=== PATIENT | female | born 1930 | race Two or more races ===

== ENCOUNTER 2020-02-07 12:30 | Inpatient (IN) | payer OTHER, MEDICAID ==
[~2020-02-07] VITALS: Ht 165.1 cm; Wt 67.6 kg
[2020-02-07] VITALS (7 sets, daily range): BP systolic 126–160; BP diastolic 43–73
[2020-02-07] MEDS ORDERED: Acetaminophen 650 MG SUPP RECTAL ONE ×2 (12:50→13:00)
[2020-02-07 13:27] LABS: BASOPHILS % (AUTO) 0.2 % (0.0-2.0); HEMATOCRIT 45.4 % (37.0-47.0); HEMOGLOBIN 14.5 G/DL (12.0-16.0); LYMPHOCYTES % (AUTO) 12.5 % (20.0-45.0); MEAN CORPUSCULAR VOLUME 94 FL (80-99); MONOCYTES % (AUTO) 4.8 % (1.0-10.0); NEUTROPHILS % (AUTO) 82.5 % (45.0-75.0); PLATELET COUNT 164 K/UL (150-450); RED BLOOD COUNT 4.82 M/UL (4.20-5.40); RED CELL DISTRIBUTION WIDTH 13.5 % (11.6-14.8); WHITE BLOOD COUNT 7.7 K/UL (4.8-10.8)
[2020-02-07 13:38] LABS: APPEARANCE,URINE CLEAR; BILIRUBIN, URINE NEGATIVE (NEGATIVE); GLUCOSE, URINE (UA) NEGATIVE (NEGATIVE); KETONES,URINE NEGATIVE (NEGATIVE); LEUKOCYTE ESTERASE ,URINE NEGATIVE (NEGATIVE); NITRITE,URINE NEGATIVE (NEGATIVE); PH,URINE 5 (4.5-8.0); PROTEIN,URINE 3+ (NEGATIVE); UROBILINOGEN,URINE 1 MG/DL (0.0-1.0)
[2020-02-07 13:40] LABS: COLOR,URINE YELLOW
[2020-02-07] MEDS ORDERED: Azithromycin 500 MG in NS 275 ML IV ONE (14:00)
[2020-02-07] MEDS ORDERED: Cefepime HCl 1 GM in D5W 55 ML IVPB ONE (14:00)
[2020-02-07 14:03] LABS: CALCIUM 8.6 MG/DL (8.5-10.1); POTASSIUM 3.8 MMOL/L (3.5-5.1)
[2020-02-07 14:09] LABS: ALBUMIN 2.3 G/DL (3.4-5.0); ALBUMIN/GLOBULIN RATIO 0.5 (1.0-2.7); BILIRUBIN,TOTAL 0.9 MG/DL (0.2-1.0)
[2020-02-07] MEDS ORDERED: dexAMETHasone 10mg/ml Inj IV ONE (14:45)
[2020-02-07] MEDS ORDERED: Enoxaparin 100mg Inj SUBQ ONE (14:45)
[2020-02-07] MEDS ORDERED: ACETAMINOPHEN325 M1 ORAL (14:52)
[2020-02-07] MEDS ORDERED: CATAPRES0.1 MG ORAL (14:52)
[2020-02-07] MEDS ORDERED: NAMENDA5 MG ORAL (14:52)
[2020-02-07] MEDS ORDERED: LEVOTHYROXINE75 MCG ORAL (14:52)
[2020-02-07] MEDS ORDERED: ATORVASTATIN CA80 MG ORAL (14:52)
[2020-02-07] MEDS ORDERED: METOPROLOL SUCC25 MG ORAL (14:52)
[2020-02-07] MEDS ORDERED: CEFTRIAXONE1 G2 IV (14:52)
--- NOTE | 2020-02-07 15:05 | Emergency Room Report ---
History of Present Illness General Chief Complaint: Dyspnea/Respdistress Source: Patient, EMS Present Illness HPI 89-year-old female presents for increased shortness of breath. Coming from senior care facility. Was placed on nonrebreather with O2 sats improved. Was recently diagnosed with Covid. No shortness of breath. Denies chest pain. Denies fevers or chills. No other aggravating relieving factors. Denies any other associated symptoms Allergies: Coded Allergies: No Known Allergies (Unverified , 02/07/20) COVID-19 Screening Contact w/high risk pt: Yes Experienced COVID-19 symptoms?: Yes COVID-19 Testing performed LABORER/GRADE CHECK: Yes COVID-19 Screening: Positive COVID-19 COVID-19 Testing Source: SNF Patient History Past Medical History: none Past Surgical History: none Pertinent Family History: none Social History: Denies: smoking, alcohol use, drug use Now: No Immunizations: UTD Reviewed Nursing Documentation: PMH: Agreed; PSxH: Agreed Review of Systems All Other Systems: negative except mentioned in HPI Physical Exam Vital Signs Date Time Temp Pulse Resp B/P (MAP) Pulse Ox O2 Delivery O2 Flow Rate FiO2 02/07/20 12:21 99.0 84 20 145/71 (95) 97 Non-Rebreather 15.0 Sp02 EP Interpretation: reviewed, normal General Appearance: no apparent distress, alert, GCS 15, non-toxic Head: normocephalic, atraumatic Eyes: bilateral eye normal inspection, bilateral eye PERRL ENT: hearing grossly normal, normal pharynx, no angioedema, normal voice Neck: full range of motion, supple/symm/no masses Respiratory: chest non-tender, normal breath sounds, crackles, speaking full sentences Cardiovascular #1: regular rate, rhythm, no edema Cardiovascular #2: 2+ carotid (R), 2+ carotid (L), 2+ radial (R), 2+ radial (L), 2+ dorsalis pedis (R), 2+ dorsalis pedis (L) Gastrointestinal: normal bowel sounds, non tender, soft, non-distended, no guarding, no rebound Rectal: deferred Genitourinary: normal inspection, no CVA tenderness Musculoskeletal: back normal, normal range of motion, gait/station normal, non- tender Neurologic: alert, motor strength/tone normal, oriented x3, sensory intact, responsive, speech normal Psychiatric: judgement/insight normal, memory normal, mood/affect normal, no suicidal/homicidal ideation Reflexes: 3+ bicep (R), 3+ bicep (L), 3+ tricep (R), 3+ tricep (L), 3+ knee (R), 3+ knee (L) Skin: other - See nursing notes Lymphatic: no adenopathy Procedures Critical Care Time Critical Care Time i. I feel this is a highly complex case requiring extensive working including EKG/Rhythm strip, Xray/CT/US, Blood/urine lab work, repeat exams while in ED, and administration of strong opiates/narcotics for pain control, admission to hospital or close patient follow up. Total time: 60 min bedside evaluation and treatment excludes procedures (EKG). Reason for critical care: Respiratory distress, hypoxia COVID-19 Possible complications: hypotension, hypertension, AL, shock, arrhythmias, metabolic acidosis, end organ damage, respiratory failure. Interventions: Labs, EKG, chest x-ray, broad-spectrum antibiotics, Lovenox, dexamethasone Course: Presenting with shortness of breath. O2 sats low. Recently diagnosed with Covid. Placed on nonrebreather with O2 sats improved. Inflammatory markers elevated. D-dimer elevated. Chest x-ray shows bilateral patchy infiltrates. Given broad-spectrum antibiotics. Given dexamethasone and Lovenox. Consultations: nursing staff, EMS, family Performed by: Dr Owen Tolerated well condition = serious j. because of unstable vital signs this patient had a condition that could potentially threaten life or limb. I feel this is a critical patient who required my full attention while patient was considered critical. Total Critical Care Time excluding procedures was greater than 60 minutes Medical Decision Making Diagnostic Impression: Primary Impression: COVID-19 Additional Impression: Respiratory distress ER Course Hospital Course 89-year-old female presents with shortness of breath, hypoxia. Recently diagnosed with Covid Differential diagnoses include: Pneumonia, CHF exacerbation, pneumothorax, fluid overload Clinical course Patient placed on stretcher. Isolation. I wore full PPE. After initial his tory and physical I ordered labs, EKG, chest x-ray Labs -no leukocytosis, hemoglobin/hematocrit stable, BUN elevated, inflammatory markers elevated, troponin negative, dimer elevated EKGnormal sinus rhythm no acute ischemic changes interpreted by me CXR -patchy bilaterally opacities 02 sats improved on nonrebreather. No tachypnea. Given Lovenox. Given dexamethasone. Given broad-spectrum antibiotics Case discussed with Dr. Cramer and he agreed to the patient to his service for further care and support I feel this is a highly complex case requiring extensive working including EKG/Rhythm strip, Xray/CT/US, Blood/urine lab work, repeat exams while in ED, and administration of strong opiates/narcotics for pain control, admission to hospital or close patient follow up. Diagnosis - COVID19, respiraory distress Patient admitted to telemetry in serious condition Laboratory Tests Test 02/07/20 12:40 White Blood Count 7.7 K/UL (4.8-10.8) Red Blood Count 4.82 M/UL (4.20-5.40) Hemoglobin 14.5 G/DL (12.0-16.0) Hematocrit 45.4 % (37.0-47.0) Mean Corpuscular Volume 94 FL (80-99) Mean Corpuscular Hemoglobin 30.0 PG (27.0-31.0) Mean Corpuscular Hemoglobin Concent 31.9 G/DL (32.0-36.0) L Red Cell Distribution Width 13.5 % (11.6-14.8) Platelet Count 164 K/UL (150-450) Mean Platelet Volume 7.8 FL (6.5-10.1) Neutrophils (%) (Auto) 82.5 % (45.0-75.0) H Lymphocytes (%) (Auto) 12.5 % (20.0-45.0) L Monocytes (%) (Auto) 4.8 % (1.0-10.0) Eosinophils (%) (Auto) 0.0 % (0.0-3.0) Basophils (%) (Auto) 0.2 % (0.0-2.0) Prothrombin Time 11.2 SEC (9.30-11.50) Prothromb Time International Ratio 1.0 (0.9-1.1) Activated Partial Thromboplast Time 54 SEC (23-33) H D-Dimer 10.97 mg/L FEU (0.00-0.49) H Urine Color Yellow Urine Appearance Clear Urine pH 5 (4.5-8.0) Urine Specific [place] 1.020 (1.005-1.035) Urine Protein 3+ (NEGATIVE) H Urine Glucose (UA) Negative (NEGATIVE) Urine Ketones Negative (NEGATIVE) Urine Blood 2+ (NEGATIVE) H Urine Nitrite Negative (NEGATIVE) Urine Bilirubin Negative (NEGATIVE) Urine Urobilinogen 1 MG/DL (0.0-1.0) H Urine Leukocyte Esterase Negative (NEGATIVE) Urine RBC 2-4 /HPF (0 - 2) H Urine WBC 0-2 /HPF (0 - 2) Urine Squamous Epithelial Cells Few /LPF (NONE/OCC) Urine Bacteria Few /HPF (NONE) Sodium Level 145 MMOL/L (136-145) Potassium Level 3.8 MMOL/L (3.5-5.1) Chloride Level 108 MMOL/L (98-107) H Carbon Dioxide Level 34 MMOL/L (21-32) H Anion Gap 3 mmol/L (5-15) L Blood Urea Nitrogen 20 mg/dL (7-18) H Creatinine 1.0 MG/DL (0.55-1.30) Estimat Glomerular Filtration Rate 52.5 mL/min (>60) Glucose Level 229 MG/DL (74-106) H Lactic Acid Level 1.80 mmol/L (0.4-2.0) Calcium Level 8.6 MG/DL (8.5-10.1) Ferritin 1084 NG/ML (8-388) H Total Bilirubin 0.9 MG/DL (0.2-1.0) Aspartate Amino Transf (AST/SGOT) 117 U/L (15-37) H Alanine Aminotransferase (ALT/SGPT) 87 U/L (12-78) H Alkaline Phosphatase 93 U/L (46-116) Lactate Dehydrogenase 384 U/L (81-234) H Troponin I 0.050 ng/mL (0.000-0.056) C-Reactive Protein, Quantitative 17.8 mg/dL (0.00-0.90) H Pro-B-Type Natriuretic Peptide 270 pg/mL (0-125) H Total Protein 7.1 G/DL (6.4-8.2) Albumin 2.3 G/DL (3.4-5.0) L Globulin 4.8 g/dL Albumin/Globulin Ratio 0.5 (1.0-2.7) L Lipase 220 U/L (73-393) EKG Diagnostic Results Troponin ordered: Yes Rate: normal Rhythm: NSR ST Segments: no acute changes ASA given to the pt in ED: No Rhythm Strip Diag. Results EP Interpretation: yes Rhythm: NSR, no PVC's, no ectopy Chest X-Ray Diagnostic Results Chest X-Ray Diagnostic Results : Chest X-Ray Ordered: Yes # of Views/Limited/Complete: 1 View Indication: Shortness of Breath EP Interpretation: Yes Interpretation: no effusion, no pneumothorax, other - patchy opacities bilaterally Impression: Other - covid pneumonia Electronically Signed by: Electronically signed by Earnest Owen MD Last Vital Signs Date Time Temp Pulse Resp B/P (MAP) Pulse Ox O2 Delivery O2 Flow Rate FiO2 02/07/20 14:13 77 25 160/54 98 Non-Rebreather 15.0 02/07/20 12:40 101.9 Status: improved Disposition: ADMITTED INPATIENT Condition: Serious Referrals: Annika Cramer M.D. (PCP) Earnest Owen MD Feb 07, 2020 15:05
--- NOTE | 2020-02-07 15:55 | Infectious Diseases Prog Note ---
Assessment/Plan Assessment/Plan Full consult dictated: A) 1) covid-19 infection, sob, hypoxia, NR, ? bacterial pna, [facility] patient 2) pmh noted 3) allergies - nkda P) 1) zosyn, vancomycin, dexamethasone, consider remdesivir 2) pmh noted 3) allergies - nkda 4) thank you Subjective Allergies: Coded Allergies: No Known Allergies (Unverified , 02/07/20) Objective Last 24 Hour Vital Signs Date Time Temp Pulse Resp B/P (MAP) Pulse Ox O2 Delivery O2 Flow Rate FiO2 02/07/20 15:47 99.1 02/07/20 14:13 77 25 160/54 98 Non-Rebreather 15.0 02/07/20 12:40 101.9 81 19 144/73 98 Non-Rebreather 15.0 02/07/20 12:30 84 20 Non-Rebreather 15.0 02/07/20 12:21 99.0 84 20 145/71 (95) 97 Non-Rebreather 15.0 Height (Feet): 5 Height (Inches): 5.00 Weight (Pounds): 150 Microbiology Date/Time Source Procedure Growth Status 02/07/20 12:45 Rectum Received Laboratory Tests Test 02/07/20 12:40 White Blood Count 7.7 K/UL (4.8-10.8) Red Blood Count 4.82 M/UL (4.20-5.40) Hemoglobin 14.5 G/DL (12.0-16.0) Hematocrit 45.4 % (37.0-47.0) Mean Corpuscular Volume 94 FL (80-99) Mean Corpuscular Hemoglobin 30.0 PG (27.0-31.0) Mean Corpuscular Hemoglobin Concent 31.9 G/DL (32.0-36.0) L Red Cell Distribution Width 13.5 % (11.6-14.8) Platelet Count 164 K/UL (150-450) Mean Platelet Volume 7.8 FL (6.5-10.1) Neutrophils (%) (Auto) 82.5 % (45.0-75.0) H Lymphocytes (%) (Auto) 12.5 % (20.0-45.0) L Monocytes (%) (Auto) 4.8 % (1.0-10.0) Eosinophils (%) (Auto) 0.0 % (0.0-3.0) Basophils (%) (Auto) 0.2 % (0.0-2.0) Prothrombin Time 11.2 SEC (9.30-11.50) Prothromb Time International Ratio 1.0 (0.9-1.1) Activated Partial Thromboplast Time 54 SEC (23-33) H D-Dimer 10.97 mg/L FEU (0.00-0.49) H Urine Color Yellow Urine Appearance Clear Urine pH 5 (4.5-8.0) Urine Specific [place] 1.020 (1.005-1.035) Urine Protein 3+ (NEGATIVE) H Urine Glucose (UA) Negative (NEGATIVE) Urine Ketones Negative (NEGATIVE) Urine Blood 2+ (NEGATIVE) H Urine Nitrite Negative (NEGATIVE) Urine Bilirubin Negative (NEGATIVE) Urine Urobilinogen 1 MG/DL (0.0-1.0) H Urine Leukocyte Esterase Negative (NEGATIVE) Urine RBC 2-4 /HPF (0 - 2) H Urine WBC 0-2 /HPF (0 - 2) Urine Squamous Epithelial Cells Few /LPF (NONE/OCC) Urine Bacteria Few /HPF (NONE) Sodium Level 145 MMOL/L (136-145) Potassium Level 3.8 MMOL/L (3.5-5.1) Chloride Level 108 MMOL/L (98-107) H Carbon Dioxide Level 34 MMOL/L (21-32) H Anion Gap 3 mmol/L (5-15) L Blood Urea Nitrogen 20 mg/dL (7-18) H Creatinine 1.0 MG/DL (0.55-1.30) Estimat Glomerular Filtration Rate 52.5 mL/min (>60) Glucose Level 229 MG/DL (74-106) H Lactic Acid Level 1.80 mmol/L (0.4-2.0) Calcium Level 8.6 MG/DL (8.5-10.1) Ferritin 1084 NG/ML (8-388) H Total Bilirubin 0.9 MG/DL (0.2-1.0) Aspartate Amino Transf (AST/SGOT) 117 U/L (15-37) H Alanine Aminotransferase (ALT/SGPT) 87 U/L (12-78) H Alkaline Phosphatase 93 U/L (46-116) Lactate Dehydrogenase 384 U/L (81-234) H Troponin I 0.050 ng/mL (0.000-0.056) C-Reactive Protein, Quantitative 17.8 mg/dL (0.00-0.90) H Pro-B-Type Natriuretic Peptide 270 pg/mL (0-125) H Total Protein 7.1 G/DL (6.4-8.2) Albumin 2.3 G/DL (3.4-5.0) L Globulin 4.8 g/dL Albumin/Globulin Ratio 0.5 (1.0-2.7) L Lipase 220 U/L (73-393) Current Medications Medications (Trade) Dose Ordered Sig/T[place]anda Route PRN Reason Start Time Stop Time Status Last Admin Dose Admin Sodium Chloride 1,000 ml @ 200 mls/hr Q5H IV 02/07/20 12:45 03/08/20 12:44 02/07/20 12:51 Viktor Goodrich MD Feb 07, 2020 15:55
--- NOTE | 2020-02-07 16:39 | Diagnostic Imaging Report ---
Indication: Shortness of breath Technique: One view of the chest Comparison: none Findings: Heart is enlarged. There is a left-sided pleural effusion, moderate. There is bilateral atelectasis and bilateral mid and lower lung interstitial congestion. Impression: Cardiac megaly Mild bilateral interstitial congestion Left pleural effusion Bilateral basilar atelectatic changes
--- NOTE | 2020-02-07 16:59 | Consultation ---
DATE OF CONSULTATION: 02/07/2020 PULMONARY CONSULTATION HISTORY OF PRESENT ILLNESS: This is an 89-year-old female with a history of being recently tested positive for COVID. She was sent from nursing facility with hypoxemia. She was placed on a nonrebreather mask. I was asked to consult. Currently, saturation is 98% on nonrebreather mask. The patient underwent imaging studies, which has shown evidence of bilateral pulmonary infiltrates. The patient is admitted to the medical floor. PAST MEDICAL HISTORY: Notable for [facility] resident status, recently tested positive for COVID-19. ALLERGIES: None. HOME MEDICATIONS: Reviewed and reconciled in chart. REVIEW OF SYSTEMS: Unreliable. PHYSICAL EXAMINATION: GENERAL: An 89-year-old female. HEENT: Unremarkable. CHEST: Clear breath sounds bilaterally. ABDOMEN: Soft. EXTREMITIES: There is no edema. NEUROLOGIC: Nonfocal. VITAL SIGNS: Blood pressure is 140/70, heart rate 84, respirations 20. She is afebrile. T-max 99.1. Currently saturating 97% on nonrebreather mask. X-ray chest discussed above notable for bilateral pulmonary infiltrates. LABORATORY DATA: Lab testing shows normal CBC. BMP notable for glucose 229, ferritin 1084, AST 117, ALT 87, LDH 384. C-reactive protein 17. ProBNP 270. Troponins negative. Lactic acid 1.8. Coags show D-dimer is 10.9. Urinalysis is negative. IMPRESSION: 1. COVID-19 pneumonia. 2. Markedly elevated inflammatory markers. 3. skilled nursing resident. DISCUSSION: Agree with admission and care. The patient would benefit from Decadron and Lovenox. This is initiated. Defer to ID for use of remdesivir. Continue oxygen on nonrebreather mask. We will follow carefully. Kevin Cartwright M.D. DR: TOBY JOB#: [id number] CC:
--- NOTE | 2020-02-07 17:17 | History and Physical ---
History of Present Illness General Date patient seen: Feb 07, 2020 Reason for Hospitalization: Dyspnea/Respdistress Present Illness HPI 89-year-old female with no significant PMH/PSH presents from SNF for worsening SOB. Recently tested positive for COVID-19. She reports mild difficulty breathing but denies chest pain, fever, chills, N/V/D, abdominal pain. In ED, she was hypoxic and improved after being placed on non-rebreather oxygen mask at 15 L. PMH: hypothyroidism based on chart review with levothyroxine medication having been prescribed. Patient denies any chronic medical conditions and denies HTN or DM PSH: denies any surgery, including abdominal surgery FH: cannot recall SH: denies alcohol or tobacco use Allergies: Coded Allergies: No Known Allergies (Unverified , 02/07/20) COVID-19 Screening Contact w/high risk pt: Yes Experienced COVID-19 symptoms?: Yes Coronavirus symptoms experienc: Shortness of Breath Medication History Scheduled Atorvastatin Calcium* (Lipitor*), 80 MG ORAL BEDTIME, (Reported) Clonidine Hcl* (Catapres*), 0.1 MG ORAL EVERY 8 HOURS, (Reported) Levothyroxine Sodium* (Synthorid*), 50 MCG ORAL DAILY, (Reported) Memantine Hcl* (Namenda*), 5 MG ORAL TWICE A DAY, (Reported) Metoprolol Succinate* (Metoprolol Succinate*), 25 MG ORAL DAILY, (Reported) Scheduled PRN Acetaminophen* (Acetaminophen 325MG Tablet*), 325 MG ORAL Q4H PRN for , (Reported) Miscellaneous Medications Ceftriaxone Sodium (Ceftriaxone), 1 GM IV, (Reported) Patient History Healthcare decision maker Resuscitation status Advanced Directive on File Review of Systems Constitutional: Denies: chills, fever Eye: Denies: eye pain, blurred vision, nose congestion ENT: Denies: ear discharge, nose congestion, throat swelling Respiratory: Reports: shortness of breath; Denies: cough Cardiovascular: Denies: chest pain, palpitations, syncope Gastrointestinal: Denies: abdominal pain, constipation, nausea, vomiting, melena, hematemesis Genitourinary: Denies: dysuria, frequency Musculoskeletal: Denies: muscle pain Skin: Denies: rash, dryness Psychiatric: Denies: anxiety, hallucinations Neurological: Denies: headache, seizure Endocrine: Denies: flushing, intolerance to temperature Hematologic/Lymphatic: Denies: easy bleeding Physical Exam General Appearance: WD/WN, no apparent distress, alert HEENT: normocephalic, atraumatic, anicteric, mucous membranes moist, supple Neck: non-tender, normal alignment, normal inspection Respiratory/Chest: chest wall non-tender, normal breath sounds, no respiratory distress, no accessory muscle use Cardiovascular/Chest: normal rate, regular rhythm Abdomen: non tender, soft, no mass Extremities: normal range of motion, non-tender, no edema Skin Exam: normal pigmentation, warm/dry 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, alert, normal mood/affect Last 24 Hour Vital Signs Date Time Temp Pulse Resp B/P (MAP) Pulse Ox O2 Delivery O2 Flow Rate FiO2 02/07/20 15:47 99.1 66 25 126/50 100 Non-Rebreather 15.0 02/07/20 15:47 99.1 02/07/20 14:13 77 25 160/54 98 Non-Rebreather 15.0 02/07/20 12:40 101.9 81 19 144/73 98 Non-Rebreather 15.0 02/07/20 12:30 84 20 Non-Rebreather 15.0 02/07/20 12:21 99.0 84 20 145/71 (95) 97 Non-Rebreather 15.0 Laboratory Tests Test 02/07/20 12:40 White Blood Count 7.7 K/UL (4.8-10.8) Red Blood Count 4.82 M/UL (4.20-5.40) Hemoglobin 14.5 G/DL (12.0-16.0) Hematocrit 45.4 % (37.0-47.0) Mean Corpuscular Volume 94 FL (80-99) Mean Corpuscular Hemoglobin 30.0 PG (27.0-31.0) Mean Corpuscular Hemoglobin Concent 31.9 G/DL (32.0-36.0) L Red Cell Distribution Width 13.5 % (11.6-14.8) Platelet Count 164 K/UL (150-450) Mean Platelet Volume 7.8 FL (6.5-10.1) Neutrophils (%) (Auto) 82.5 % (45.0-75.0) H Lymphocytes (%) (Auto) 12.5 % (20.0-45.0) L Monocytes (%) (Auto) 4.8 % (1.0-10.0) Eosinophils (%) (Auto) 0.0 % (0.0-3.0) Basophils (%) (Auto) 0.2 % (0.0-2.0) Prothrombin Time 11.2 SEC (9.30-11.50) Prothromb Time International Ratio 1.0 (0.9-1.1) Activated Partial Thromboplast Time 54 SEC (23-33) H D-Dimer 10.97 mg/L FEU (0.00-0.49) H Urine Color Yellow Urine Appearance Clear Urine pH 5 (4.5-8.0) Urine Specific [place] 1.020 (1.005-1.035) Urine Protein 3+ (NEGATIVE) H Urine Glucose (UA) Negative (NEGATIVE) Urine Ketones Negative (NEGATIVE) Urine Blood 2+ (NEGATIVE) H Urine Nitrite Negative (NEGATIVE) Urine Bilirubin Negative (NEGATIVE) Urine Urobilinogen 1 MG/DL (0.0-1.0) H Urine Leukocyte Esterase Negative (NEGATIVE) Urine RBC 2-4 /HPF (0 - 2) H Urine WBC 0-2 /HPF (0 - 2) Urine Squamous Epithelial Cells Few /LPF (NONE/OCC) Urine Bacteria Few /HPF (NONE) Sodium Level 145 MMOL/L (136-145) Potassium Level 3.8 MMOL/L (3.5-5.1) Chloride Level 108 MMOL/L (98-107) H Carbon Dioxide Level 34 MMOL/L (21-32) H Anion Gap 3 mmol/L (5-15) L Blood Urea Nitrogen 20 mg/dL (7-18) H Creatinine 1.0 MG/DL (0.55-1.30) Estimat Glomerular Filtration Rate 52.5 mL/min (>60) Glucose Level 229 MG/DL (74-106) H Lactic Acid Level 1.80 mmol/L (0.4-2.0) Calcium Level 8.6 MG/DL (8.5-10.1) Ferritin 1084 NG/ML (8-388) H Total Bilirubin 0.9 MG/DL (0.2-1.0) Aspartate Amino Transf (AST/SGOT) 117 U/L (15-37) H Alanine Aminotransferase (ALT/SGPT) 87 U/L (12-78) H Alkaline Phosphatase 93 U/L (46-116) Lactate Dehydrogenase 384 U/L (81-234) H Troponin I 0.050 ng/mL (0.000-0.056) C-Reactive Protein, Quantitative 17.8 mg/dL (0.00-0.90) H Pro-B-Type Natriuretic Peptide 270 pg/mL (0-125) H Total Protein 7.1 G/DL (6.4-8.2) Albumin 2.3 G/DL (3.4-5.0) L Globulin 4.8 g/dL Albumin/Globulin Ratio 0.5 (1.0-2.7) L Lipase 220 U/L (73-393) Microbiology Date/Time Source Procedure Growth Status 02/07/20 12:45 Rectum Received Height (Feet): 5 Height (Inches): 5.00 Weight (Pounds): 150 Medications Current Medications Medications (Trade) Dose Ordered Sig/T[place]anda Route PRN Reason Start Time Stop Time Status Last Admin Dose Admin Dexamethasone Sodium Phosphate (Decadron 10mg/ ml Inj) 6 mg DAILY IV 02/08/20 09:00 02/17/20 09:01 Piperacillin Sod/ Tazobactam Sod 3.375 gm/Dextrose 100 ml @ 25 mls/hr EVERY 8 HOURS IVPB 02/07/20 22:00 02/12/20 21:59 UNV Sodium Chloride 1,000 ml @ 200 mls/hr Q5H IV 02/07/20 12:45 03/08/20 12:44 02/07/20 12:51 Vancomycin HCl ([facility] pharmacy to dose) 1 ea DAILY PRN MISC Per rx protocol 02/07/20 16:00 03/08/20 15:59 UNV Objective Narrative 02/07/2020 Procedure: XRAY Chest 1v Indication: Shortness of breath Findings: Heart is enlarged. There is a left-sided pleural effusion, moderate. There is bilateral atelectasis and bilateral mid and lower lung interstitial congestion. Impression: Cardiac megaly Mild bilateral interstitial congestion Left pleural effusion Bilateral basilar atelectatic changes Assessment/Plan Assessment/Plan: A: #COVID-19 infection - diagnosed at [facility] #Acute hypoxemic respiratory failure - CXR showing pleural effusion. Likely 2/2 COVID pneumonia vs bacterial pneumonia #Metabolic alkalosis #Elevated inflammatory markers - D-dimer, ferritin, CRP #Hypothyroidism #Hypoalbuminemia P: - currently on 15 L oxygen via non-rebreather - cardiac monitoring - IV abx Vanc/Zosyn per ID - dexamethasone, remdesivir - holding levothyroxine for now - ID consult, Dr. Conte, recs appreciated - Pulm consult, Dr. Cartwright, recs appreciated - Nephro consult, Dr. Cramer, recs appreciated Code: Full GI: Protonix DVT prophylaxis: Heparin 5000 units twice daily Dispo: Pending improving in hypoxic respiratory failure, back to SNF after In addition to the usual care above I spent additional time reviewing records in the EMR and paper charts including physician documentation, nursing documentation, lab results, imaging and clinical documentation. Total time included was 37 min. Time spent on this encounter was 73 minutes which included 40 minutes of counseling and care coordination. I discussed with the nurse at bedside. Time of note may not reflect time patient was seen. Ronan Chan M.D. Feb 07, 2020 17:17
[2020-02-07] MEDS ORDERED: Milk of Magnesia 30ml Ud ORAL PRN (18:45)
--- NOTE | 2020-02-07 18:52 | Consultation ---
History of Present Illness General Chief Complaint: Dyspnea/Respdistress Present Illness HPI 89-year-old female presents for increased shortness of breath. Coming from retirement facility. Was placed on nonrebreather with O2 sats improved. Was recently diagnosed with Covid. No shortness of breath. Denies chest pain. Denies fevers or chills. No other aggravating relieving factors. Denies any other associated symptoms Allergies: Coded Allergies: No Known Allergies (Unverified , 02/07/20) Medication History Scheduled Atorvastatin Calcium* (Lipitor*), 80 MG ORAL BEDTIME, (Reported) Clonidine Hcl* (Catapres*), 0.1 MG ORAL EVERY 8 HOURS, (Reported) Levothyroxine Sodium* (Synthorid*), 50 MCG ORAL DAILY, (Reported) Memantine Hcl* (Namenda*), 5 MG ORAL TWICE A DAY, (Reported) Metoprolol Succinate* (Metoprolol Succinate*), 25 MG ORAL DAILY, (Reported) Scheduled PRN Acetaminophen* (Acetaminophen 325MG Tablet*), 325 MG ORAL Q4H PRN for , (Reported) Miscellaneous Medications Ceftriaxone Sodium (Ceftriaxone), 1 GM IV, (Reported) Patient History Healthcare decision maker Resuscitation status Advanced Directive on File Review of Systems All Other Systems: negative except mentioned in HPI Physical Exam Last 24 Hour Vital Signs Date Time Temp Pulse Resp B/P (MAP) Pulse Ox O2 Delivery O2 Flow Rate FiO2 02/07/20 18:05 99.1 60 17 129/47 99 Non-Rebreather 15.0 02/07/20 15:47 99.1 66 25 126/50 100 Non-Rebreather 15.0 02/07/20 15:47 99.1 02/07/20 14:13 77 25 160/54 98 Non-Rebreather 15.0 02/07/20 12:40 101.9 81 19 144/73 98 Non-Rebreather 15.0 02/07/20 12:30 84 20 Non-Rebreather 15.0 02/07/20 12:21 99.0 84 20 145/71 (95) 97 Non-Rebreather 15.0 Laboratory Tests Test 02/07/20 12:40 White Blood Count 7.7 K/UL (4.8-10.8) Red Blood Count 4.82 M/UL (4.20-5.40) Hemoglobin 14.5 G/DL (12.0-16.0) Hematocrit 45.4 % (37.0-47.0) Mean Corpuscular Volume 94 FL (80-99) Mean Corpuscular Hemoglobin 30.0 PG (27.0-31.0) Mean Corpuscular Hemoglobin Concent 31.9 G/DL (32.0-36.0) L Red Cell Distribution Width 13.5 % (11.6-14.8) Platelet Count 164 K/UL (150-450) Mean Platelet Volume 7.8 FL (6.5-10.1) Neutrophils (%) (Auto) 82.5 % (45.0-75.0) H Lymphocytes (%) (Auto) 12.5 % (20.0-45.0) L Monocytes (%) (Auto) 4.8 % (1.0-10.0) Eosinophils (%) (Auto) 0.0 % (0.0-3.0) Basophils (%) (Auto) 0.2 % (0.0-2.0) Prothrombin Time 11.2 SEC (9.30-11.50) Prothromb Time International Ratio 1.0 (0.9-1.1) Activated Partial Thromboplast Time 54 SEC (23-33) H D-Dimer 10.97 mg/L FEU (0.00-0.49) H Urine Color Yellow Urine Appearance Clear Urine pH 5 (4.5-8.0) Urine Specific [place] 1.020 (1.005-1.035) Urine Protein 3+ (NEGATIVE) H Urine Glucose (UA) Negative (NEGATIVE) Urine Ketones Negative (NEGATIVE) Urine Blood 2+ (NEGATIVE) H Urine Nitrite Negative (NEGATIVE) Urine Bilirubin Negative (NEGATIVE) Urine Urobilinogen 1 MG/DL (0.0-1.0) H Urine Leukocyte Esterase Negative (NEGATIVE) Urine RBC 2-4 /HPF (0 - 2) H Urine WBC 0-2 /HPF (0 - 2) Urine Squamous Epithelial Cells Few /LPF (NONE/OCC) Urine Bacteria Few /HPF (NONE) Sodium Level 145 MMOL/L (136-145) Potassium Level 3.8 MMOL/L (3.5-5.1) Chloride Level 108 MMOL/L (98-107) H Carbon Dioxide Level 34 MMOL/L (21-32) H Anion Gap 3 mmol/L (5-15) L Blood Urea Nitrogen 20 mg/dL (7-18) H Creatinine 1.0 MG/DL (0.55-1.30) Estimat Glomerular Filtration Rate 52.5 mL/min (>60) Glucose Level 229 MG/DL (74-106) H Lactic Acid Level 1.80 mmol/L (0.4-2.0) Calcium Level 8.6 MG/DL (8.5-10.1) Ferritin 1084 NG/ML (8-388) H Total Bilirubin 0.9 MG/DL (0.2-1.0) Aspartate Amino Transf (AST/SGOT) 117 U/L (15-37) H Alanine Aminotransferase (ALT/SGPT) 87 U/L (12-78) H Alkaline Phosphatase 93 U/L (46-116) Lactate Dehydrogenase 384 U/L (81-234) H Troponin I 0.050 ng/mL (0.000-0.056) C-Reactive Protein, Quantitative 17.8 mg/dL (0.00-0.90) H Pro-B-Type Natriuretic Peptide 270 pg/mL (0-125) H Total Protein 7.1 G/DL (6.4-8.2) Albumin 2.3 G/DL (3.4-5.0) L Globulin 4.8 g/dL Albumin/Globulin Ratio 0.5 (1.0-2.7) L Lipase 220 U/L (73-393) Microbiology Date/Time Source Procedure Growth Status 02/07/20 12:45 Rectum Received Height (Feet): 5 Height (Inches): 5.00 Weight (Pounds): 150 Medications Current Medications Medications (Trade) Dose Ordered Sig/Tawanda Route PRN Reason Start Time Stop Time Status Last Admin Dose Admin Acetaminophen (Tylenol) 650 mg Q4H PRN ORAL Temp >100.5 02/07/20 18:45 03/08/20 18:44 UNV Dexamethasone Sodium Phosphate (Decadron 10mg/ ml Inj) 6 mg DAILY IV 02/08/20 09:00 02/17/20 09:01 Dextrose (Dextrose 50%) 25 ml Q30M PRN IV Hypoglycemia 02/07/20 18:45 05/07/20 18:44 UNV Dextrose (Dextrose 50%) 50 ml Q30M PRN IV Hypoglycemia 02/07/20 18:45 05/07/20 18:44 UNV Heparin Sodium (Porcine) (Heparin 5000 units/ml) 5,000 units EVERY 12 HOURS SUBQ 02/07/20 21:00 03/23/20 20:59 UNV Magnesium Hydroxide (Mom) 30 ml HSPRN PRN ORAL Constipation 02/07/20 18:45 03/08/20 18:44 UNV Pantoprazole (Protonix) 40 mg DAILY ORAL 02/08/20 09:00 03/09/20 08:59 UNV Piperacillin Sod/ Tazobactam Sod 3.375 gm/Dextrose 100 ml @ 25 mls/hr EVERY 8 HOURS IVPB 02/07/20 22:00 02/12/20 21:59 UNV Sodium Chloride 1,000 ml @ 200 mls/hr Q5H IV 02/07/20 12:45 03/08/20 12:44 02/07/20 12:51 Vancomycin HCl ([facility]anco pharmacy to dose) 1 ea DAILY PRN MISC Per rx protocol 02/07/20 16:00 03/08/20 15:59 UNV Assessment/Plan Diagnosis [place]: #Hypoxemic resp failure, #metabolic alkalosis #COVID infection #possible pneumonia - admit inpatient - IVF - antibiotics per ID - on lovenox - consider remdesevir - appreciate pulm recs - avoid nephrotoxins - monitor lytes time spent 65 min Annika Cramer M.D. Feb 07, 2020 18:52
[2020-02-07] MEDS: Vancomycin 1.25gm/250ml Premix IVPB SCH ×2 (21:15→21:30)
[2020-02-08] VITALS (7 sets, daily range): BP systolic 112–139; BP diastolic 58–76
[2020-02-08] MEDS ORDERED: Loading Dose:Remdesivir 200mg/NS 210ml IV SCH ×8 (02:00→09:00)
[2020-02-08 08:58] LABS: HEMATOCRIT 42.7 % (37.0-47.0); HEMOGLOBIN 14.1 G/DL (12.0-16.0); MEAN CORPUSCULAR VOLUME 89 FL (80-99); PLATELET COUNT 167 K/UL (150-450); RED BLOOD COUNT 4.78 M/UL (4.20-5.40); RED CELL DISTRIBUTION WIDTH 13.5 % (11.6-14.8); WHITE BLOOD COUNT 6.5 K/UL (4.8-10.8)
[2020-02-08] MEDS: dexAMETHasone 10mg/ml Inj IV SCH (09:02)
[2020-02-08] MEDS: Heparin 5000 units/ml inj SUBQ SCH ×2 (09:03→21:24)
[2020-02-08 10:16] LABS: ALANINE AMINOTRANSFERASE 67 U/L (12-78); ALBUMIN 2.1 G/DL (3.4-5.0); ALBUMIN/GLOBULIN RATIO 0.5 (1.0-2.7); ALKALINE PHOSPHATASE 92 U/L (46-116); ANION GAP 9 mmol/L (5-15); ASPARTATE AMINO TRANSFERASE 77 U/L (15-37); BILIRUBIN,TOTAL 0.7 MG/DL (0.2-1.0); BLOOD UREA NITROGEN 22 mg/dL (7-18); CALCIUM 8.3 MG/DL (8.5-10.1); CARBON DIOXIDE 27 MMOL/L (21-32); CHLORIDE 110 MMOL/L (98-107); CREATININE 0.8 MG/DL (0.55-1.30); POTASSIUM 3.8 MMOL/L (3.5-5.1); SODIUM 146 MMOL/L (136-145)
--- NOTE | 2020-02-08 10:30 | Pulmonology Progress Note ---
Subjective Interval Events: None new Constitutional: Reports: no symptoms HEENT: Repors: no symptoms Respiratory: Reports: no symptoms Cardiovascular: Reports: no symptoms Gastrointestinal/Abdominal: Reports: no symptoms Allergies: Coded Allergies: No Known Allergies (Unverified , 02/07/20) Objective Last 24 Hour Vital Signs Date Time Temp Pulse Resp B/P (MAP) Pulse Ox O2 Delivery O2 Flow Rate FiO2 02/08/20 08:00 96.5 71 22 128/67 (87) 97 02/08/20 04:00 96.8 56 24 127/65 (85) 96 02/08/20 04:00 56 02/08/20 03:04 Non-Rebreather 10.0 02/08/20 01:04 65 02/08/20 01:00 96.8 55 20 124/58 (80) 98 02/08/20 00:50 97.0 58 18 146/55 100 Non-Rebreather 13.0 02/08/20 00:20 97.0 57 18 139/62 99 Non-Rebreather 13.0 02/07/20 22:55 97.0 62 19 155/52 99 Non-Rebreather 13.0 02/07/20 21:00 98.9 63 22 133/57 100 Non-Rebreather 13.0 02/07/20 19:30 98.7 61 21 134/43 100 Non-Rebreather 13.0 02/07/20 18:05 99.1 60 17 129/47 99 Non-Rebreather 15.0 02/07/20 15:47 99.1 66 25 126/50 100 Non-Rebreather 15.0 02/07/20 15:47 99.1 02/07/20 14:13 77 25 160/54 98 Non-Rebreather 15.0 02/07/20 12:40 101.9 81 19 144/73 98 Non-Rebreather 15.0 02/07/20 12:30 84 20 Non-Rebreather 15.0 02/07/20 12:21 99.0 84 20 145/71 (95) 97 Non-Rebreather 15.0 Intake and Output 02/07/20 02/08/20 19:00 07:00 Intake Total 0 ml Balance 0 ml Intake Oral 0 ml # Voids 1 General Appearance: no acute distress HEENT: normocephalic Respiratory: decreased breath sounds Cardiovascular: normal peripheral pulses Abdomen: normal bowel sounds Microbiology Date/Time Source Procedure Growth Status 02/07/20 12:45 Rectum Received Laboratory Tests 02/07/20 12:40: White Blood Count 7.7, Red Blood Count 4.82, Hemoglobin 14.5, Hematocrit 45.4, Mean Corpuscular Volume 94, Mean Corpuscular Hemoglobin 30.0, Mean Corpuscular Hemoglobin Concent 31.9L, Red Cell Distribution Width 13.5, Platelet Count 164, Mean Platelet Volume 7.8, Neutrophils (%) (Auto) 82.5H, Lymphocytes (%) (Auto) 12.5L, Monocytes (%) (Auto) 4.8, Eosinophils (%) (Auto) 0.0, Basophils (%) (Auto) 0.2, Prothrombin Time 11.2, Prothromb Time International Ratio 1.0, Ac tivated Partial Thromboplast Time 54H, D-Dimer 10.97H, Urine Color Yellow, Urine Appearance Clear, Urine pH 5, Urine Specific [place] 1.020, Urine Protein 3+H, Urine Glucose (UA) Negative, Urine Ketones Negative, Urine Blood 2+H, Urine Nitrite Negative, Urine Bilirubin Negative, Urine Urobilinogen 1H, Urine Leukocyte Esterase Negative, Urine RBC 2-4H, Urine WBC 0-2, Urine Squamous Epithelial Cells Few, Urine Bacteria Few, Sodium Level 145, Potassium Level 3.8, Chloride Level 108H, Carbon Dioxide Level 34H, Anion Gap 3L, Blood Urea Nitrogen 20H, Creatinine 1.0, Estimat Glomerular Filtration Rate 52.5, Glucose Level 229H , Lactic Acid Level 1.80, Calcium Level 8.6, Ferritin 1084H, Total Bilirubin 0.9, Aspartate Amino Transf (AST/SGOT) 117H, Alanine Aminotransferase (ALT/SGPT) 87H, Alkaline Phosphatase 93, Lactate Dehydrogenase 384H, Troponin I 0.050, C- Reactive Protein, Quantitative 17.8H, Pro-B-Type Natriuretic Peptide 270H, Total Protein 7.1, Albumin 2.3L, Globulin 4.8, Albumin/Globulin Ratio 0.5L, Lipase 220 02/08/20 08:05: White Blood Count 6.5, Red Blood Count 4.78, Hemoglobin 14.1, Hematocrit 42.7, Mean Corpuscular Volume 89, Mean Corpuscular Hemoglobin 29.4, Mean Corpuscular Hemoglobin Concent 32.9, Red Cell Distribution Width 13.5, Platelet Count 167, Mean Platelet Volume 8.1, Neutrophils (%) (Auto) , Lymphocytes (%) (Auto) , Monocytes (%) (Auto) , Eosinophils (%) (Auto) , Basophils (%) (Auto) , Sodium Level 146H, Potassium Level 3.8, Chloride Level 110H, Carbon Dioxide Level 27, Anion Gap 9, Blood Urea Nitrogen 22H, Creatinine 0.8, Estimat Glomerular Filtration Rate > 60, Glucose Level 299H, Calcium Level 8.3L, Total Bilirubin 0.7, Aspartate Amino Transf (AST/SGOT) 77H, Alanine Aminotransferase (ALT/SGPT) 67, Alkaline Phosphatase 92, Pro-B-Type Natriuretic Peptide 310H, Total Protein 6.7, Albumin 2.1L, Globulin 4.6, Albumin/Globulin Ratio 0.5L, Neutrophils % (Manual) [Pending], Lymphocytes % (Manual) [Pending], Platelet Estimate [Pending], Platelet Morphology [Pending], Magnesium Level 2.4, Direct Bilirubin 0.2 02/08/20 08:24: Arterial Blood pH 7.415, Arterial Blood Partial Pressure CO2 49.0H, Arterial Blood Partial Pressure O2 76.9, Arterial Blood HCO3 30.7H, Arterial Blood Oxygen Saturation 95.1, Arterial Blood Base Excess 5.1H, Jimmy Test Positive Current Medications Medications (Trade) Dose Ordered Sig/Tawanda Route PRN Reason Start Time Stop Time Status Last Admin Dose Admin Acetaminophen (Tylenol) 650 mg Q4H PRN ORAL Temp >100.5 02/07/20 19:09 03/08/20 19:08 Dexamethasone Sodium Phosphate (Decadron 10mg/ ml Inj) 6 mg DAILY IV 02/08/20 09:00 02/17/20 09:01 02/08/20 09:02 Dextrose (Dextrose 50%) 25 ml Q30M PRN IV Hypoglycemia 02/07/20 19:10 05/07/20 19:09 Dextrose (Dextrose 50%) 50 ml Q30M PRN IV Hypoglycemia 02/07/20 19:09 05/07/20 19:08 Heparin Sodium (Porcine) (Heparin 5000 units/ml) 5,000 units EVERY 12 HOURS SUBQ 02/08/20 09:00 03/24/20 08:59 02/08/20 09:03 Magnesium Hydroxide (Mom) 30 ml QHS PRN ORAL Constipation 02/07/20 18:45 03/08/20 18:44 Pantoprazole (Protonix) 40 mg DAILY ORAL 02/08/20 09:00 03/09/20 08:59 02/08/20 09:02 Piperacillin Sod/ Tazobactam Sod 3.375 gm/Dextrose 100 ml @ 25 mls/hr EVERY 8 HOURS IVPB 02/07/20 22:00 02/12/20 21:59 02/08/20 06:00 Remdesivir 100 mg/ Sodium Chloride 250 ml @ 250 mls/hr Q24H IV 02/09/20 09:00 02/12/20 09:59 Remdesivir 200 mg/ Sodium Chloride 250 ml @ 125 mls/hr ONCE IV 02/08/20 09:00 02/08/20 10:59 02/08/20 09:36 Sodium Chloride 1,000 ml @ 200 mls/hr Q5H IV 02/07/20 12:45 03/08/20 12:44 02/07/20 12:51 Vancomycin HCl 250 ml @ 166.667 mls/hr Q24H IVPB 02/07/20 21:30 02/12/20 21:29 02/07/20 21:30 Vancomycin HCl ([facility] pharmacy to dose) 1 ea DAILY PRN MISC Per rx protocol 02/07/20 16:00 03/08/20 15:59 Assessment/Plan Assessment/Plan IMPRESSION: 1. COVID-19 pneumonia. 2. Markedly elevated inflammatory markers. 3. intermediate resident. DISCUSSION: Agree with admission and care. The patient would benefit from Decadron and Lovenox. This has been initiated. Defer to ID for use of remdesivir. Continue oxygen on nonrebreather mask. I will follow carefully. Robert Garcia Omar Syed MD Feb 08, 2020 10:30
--- NOTE | 2020-02-08 12:26 | Nephrology Progress Note ---
Assessment/Plan Plan #Hypoxemic resp failure, #metabolic alkalosis #COVID infection #possible pneumonia #hypernatremia -switch to 1/2 NS - antibiotics per ID - on lovenox - consider remdesevir - appreciate pulm recs - avoid nephrotoxins - monitor lytes time spent 65 min Subjective ROS Limited/Unobtainable: No Constitutional: Reports: malaise, weakness HEENT: Denies: no symptoms, eye pain, blurred vision, tearing, double vision, ear pain, ear discharge, nose pain, nose congestion, throat pain, throat swelling, mouth pain, mouth swelling, other Genitourinary: Denies: no symptoms, burning, discharge, frequency, flank pain, hematuria, incontinence, pain, urgency, other Neurologic/Psychiatric: Denies: no symptoms, anxiety, depressed, emotional problems, headache, numbness, paresthesia, pre-existing deficit, seizure, tingling, tremors, weakness, other Objective Objective Last 24 Hour Vital Signs Date Time Temp Pulse Resp B/P (MAP) Pulse Ox O2 Delivery O2 Flow Rate FiO2 02/08/20 12:06 Nasal Cannula 6.0 02/08/20 12:00 98.8 87 21 121/76 (91) 98 02/08/20 09:00 Non-Rebreather 13.0 02/08/20 08:00 96.5 71 22 128/67 (87) 97 02/08/20 08:00 56 02/08/20 04:00 96.8 56 24 127/65 (85) 96 02/08/20 04:00 56 02/08/20 03:04 Non-Rebreather 10.0 02/08/20 01:04 65 02/08/20 01:00 96.8 55 20 124/58 (80) 98 02/08/20 00:50 97.0 58 18 146/55 100 Non-Rebreather 13.0 02/08/20 00:20 97.0 57 18 139/62 99 Non-Rebreather 13.0 02/07/20 22:55 97.0 62 19 155/52 99 Non-Rebreather 13.0 02/07/20 21:00 98.9 63 22 133/57 100 Non-Rebreather 13.0 02/07/20 19:30 98.7 61 21 134/43 100 Non-Rebreather 13.0 02/07/20 18:05 99.1 60 17 129/47 99 Non-Rebreather 15.0 02/07/20 15:47 99.1 66 25 126/50 100 Non-Rebreather 15.0 02/07/20 15:47 99.1 02/07/20 14:13 77 25 160/54 98 Non-Rebreather 15.0 02/07/20 12:40 101.9 81 19 144/73 98 Non-Rebreather 15.0 02/07/20 12:30 84 20 Non-Rebreather 15.0 Intake and Output 02/07/20 02/08/20 19:00 07:00 Intake Total 0 ml Balance 0 ml Intake Oral 0 ml # Voids 1 Laboratory Tests 02/07/20 12:40: White Blood Count 7.7, Red Blood Count 4.82, Hemoglobin 14.5, Hematocrit 45.4, Mean Corpuscular Volume 94, Mean Corpuscular Hemoglobin 30.0, Mean Corpuscular Hemoglobin Concent 31.9L, Red Cell Distribution Width 13.5, Platelet Count 164, Mean Platelet Volume 7.8, Neutrophils (%) (Auto) 82.5H, Lymphocytes (%) (Auto) 12.5L, Monocytes (%) (Auto) 4.8, Eosinophils (%) (Auto) 0.0, Basophils (%) (Auto) 0.2, Prothrombin Time 11.2, Prothromb Time International Ratio 1.0, Activated Partial Thromboplast Time 54H, D-Dimer 10.97H, Urine Color Yellow, Urine Appearance Clear, Urine pH 5, Urine Specific [place] 1.020, Urine Protein 3+H, Urine Glucose (UA) Negative, Urine Ketones Negative, Urine Blood 2+H, Urine Nitrite Negative, Urine Bilirubin Negative, Urine Urobilinogen 1H, Urine Leukocyte Esterase Negative, Urine RBC 2-4H, Urine WBC 0-2, Urine Squamous Epithelial Cells Few, Urine Bacteria Few, Sodium Level 145, Potassium Level 3.8, Chloride Level 108H, Carbon Dioxide Level 34H, Anion Gap 3L, Blood Urea Nitrogen 20H, Creatinine 1.0, Estimat Glomerular Filtration Rate 52.5, Glucose Level 229H , Lactic Acid Level 1.80, Calcium Level 8.6, Ferritin 1084H, Total Bilirubin 0.9, Aspartate Amino Transf (AST/SGOT) 117H, Alanine Aminotransferase (ALT/SGPT) 87H, Alkaline Phosphatase 93, Lactate Dehydrogenase 384H, Troponin I 0.050, C- Reactive Protein, Quantitative 17.8H, Pro-B-Type Natriuretic Peptide 270H, Total Protein 7.1, Albumin 2.3L, Globulin 4.8, Albumin/Globulin Ratio 0.5L, Lipase 220 02/08/20 08:05: White Blood Count 6.5, Red Blood Count 4.78, Hemoglobin 14.1, Hematocrit 42.7, Mean Corpuscular Volume 89, Mean Corpuscular Hemoglobin 29.4, Mean Corpuscular Hemoglobin Concent 32.9, Red Cell Distribution Width 13.5, Platelet Count 167, Mean Platelet Volume 8.1, Neutrophils (%) (Auto) , Lymphocytes (%) (Auto) , Monocytes (%) (Auto) , Eosinophils (%) (Auto) , Basophils (%) (Auto) , Sodium Level 146H, Potassium Level 3.8, Chloride Level 110H, Carbon Dioxide Level 27, Anion Gap 9, Blood Urea Nitrogen 22H, Creatinine 0.8, Estimat Glomerular Filtration Rate > 60, Glucose Level 299H, Calcium Level 8.3L, Total Bilirubin 0.7, Aspartate Amino Transf (AST/SGOT) 77H, Alanine Aminotransferase (ALT/SGPT) 67, Alkaline Phosphatase 92, Pro-B-Type Natriuretic Peptide 310H, Total Protein 6.7, Albumin 2.1L, Globulin 4.6, Albumin/Globulin Ratio 0.5L, Differential Total Cells Counted 100, Neutrophils % (Manual) 87H, Lymphocytes % (Manual) 10L, Monocytes % (Manual) 3, Eosinophils % (Manual) 0, Basophils % (Manual) 0, Band Neutrophils 0, Platelet Estimate Adequate, Platelet Morphology Normal, Red Blood Cell Morphology Normal, Magnesium Level 2.4, Direct Bilirubin 0.2 02/08/20 08:24: Arterial Blood pH 7.415, Arterial Blood Partial Pressure CO2 49.0H, Arterial Blood Partial Pressure O2 76.9, Arterial Blood HCO3 30.7H, Arterial Blood Oxygen Saturation 95.1, Arterial Blood Base Excess 5.1H, Jimmy Test Positive Height (Feet): 5 Height (Inches): 5.00 Weight (Pounds): 149 Annika Cramer M.D. Feb 08, 2020 12:25
--- NOTE | 2020-02-08 19:21 | Infectious Diseases Prog Note ---
Assessment/Plan Assessment/Plan Full consult dictated: A) 1) covid-19 infection, sob, hypoxia, NR, ? bacterial pna, ecf patient 2) pmh noted 3) allergies - nkda P) 1) zosyn, vancomycin, dexamethasone, consider remdesivir 2) f/u on cultures, labs and chest x-ray 3) allergies - nkda 4) will f/u Subjective Constitutional: Reports: fatigue; Denies: fever HEENT: Reports: congestion - less Respiratory: Reports: shortness of breath - less Cardiovascular: Denies: chest pain Gastrointestinal/Abdominal: Denies: nausea, vomiting, diarrhea Allergies: Coded Allergies: No Known Allergies (Unverified , 02/07/20) Objective Last 24 Hour Vital Signs Date Time Temp Pulse Resp B/P (MAP) Pulse Ox O2 Delivery O2 Flow Rate FiO2 02/08/20 16:00 62 02/08/20 16:00 96.5 56 22 128/67 (87) 93 02/08/20 12:06 Nasal Cannula 6.0 02/08/20 12:00 57 02/08/20 12:00 98.8 87 21 121/76 (91) 98 02/08/20 09:00 Non-Rebreather 13.0 02/08/20 08:00 96.5 71 22 128/67 (87) 97 02/08/20 08:00 56 02/08/20 04:00 96.8 56 24 127/65 (85) 96 02/08/20 04:00 56 02/08/20 03:04 Non-Rebreather 10.0 02/08/20 01:04 65 02/08/20 01:00 96.8 55 20 124/58 (80) 98 02/08/20 00:50 97.0 58 18 146/55 100 Non-Rebreather 13.0 02/08/20 00:20 97.0 57 18 139/62 99 Non-Rebreather 13.0 02/07/20 22:55 97.0 62 19 155/52 99 Non-Rebreather 13.0 02/07/20 21:00 98.9 63 22 133/57 100 Non-Rebreather 13.0 02/07/20 19:30 98.7 61 21 134/43 100 Non-Rebreather 13.0 Height (Feet): 5 Height (Inches): 5.00 Weight (Pounds): 149 General Appearance: no acute distress HEENT: normocephalic, atraumatic, anicteric Respiratory/Chest: crackles/rales, rhonchi - bilaterally Cardiovascular: normal rate, regular rhythm Abdomen: normal bowel sounds, soft, non tender, no organomegaly Microbiology Date/Time Source Procedure Growth Status 02/07/20 12:45 Rectum Received Laboratory Tests Test 02/08/20 08:05 02/08/20 08:24 White Blood Count 6.5 K/UL (4.8-10.8) Red Blood Count 4.78 M/UL (4.20-5.40) Hemoglobin 14.1 G/DL (12.0-16.0) Hematocrit 42.7 % (37.0-47.0) Mean Corpuscular Volume 89 FL (80-99) Mean Corpuscular Hemoglobin 29.4 PG (27.0-31.0) Mean Corpuscular Hemoglobin Concent 32.9 G/DL (32.0-36.0) Red Cell Distribution Width 13.5 % (11.6-14.8) Platelet Count 167 K/UL (150-450) Mean Platelet Volume 8.1 FL (6.5-10.1) Neutrophils (%) (Auto) % (45.0-75.0) Lymphocytes (%) (Auto) % (20.0-45.0) Monocytes (%) (Auto) % (1.0-10.0) Eosinophils (%) (Auto) % (0.0-3.0) Basophils (%) (Auto) % (0.0-2.0) Differential Total Cells Counted 100 Neutrophils % (Manual) 87 % (45-75) H Lymphocytes % (Manual) 10 % (20-45) L Monocytes % (Manual) 3 % (1-10) Eosinophils % (Manual) 0 % (0-3) Basophils % (Manual) 0 % (0-2) Band Neutrophils 0 % (0-8) Platelet Estimate Adequate Platelet Morphology Normal Red Blood Cell Morphology Normal Sodium Level 146 MMOL/L (136-145) H Potassium Level 3.8 MMOL/L (3.5-5.1) Chloride Level 110 MMOL/L (98-107) H Carbon Dioxide Level 27 MMOL/L (21-32) Anion Gap 9 mmol/L (5-15) Blood Urea Nitrogen 22 mg/dL (7-18) H Creatinine 0.8 MG/DL (0.55-1.30) Estimat Glomerular Filtration Rate > 60 mL/min (>60) Glucose Level 299 MG/DL (74-106) H Calcium Level 8.3 MG/DL (8.5-10.1) L Magnesium Level 2.4 MG/DL (1.8-2.4) Total Bilirubin 0.7 MG/DL (0.2-1.0) Direct Bilirubin 0.2 MG/DL (0.0-0.3) Aspartate Amino Transf (AST/SGOT) 77 U/L (15-37) H Alanine Aminotransferase (ALT/SGPT) 67 U/L (12-78) Alkaline Phosphatase 92 U/L (46-116) Pro-B-Type Natriuretic Peptide 310 pg/mL (0-125) H Total Protein 6.7 G/DL (6.4-8.2) Albumin 2.1 G/DL (3.4-5.0) L Globulin 4.6 g/dL Albumin/Globulin Ratio 0.5 (1.0-2.7) L Arterial Blood pH 7.415 (7.350-7.450) Arterial Blood Partial Pressure CO2 49.0 mmHg (35.0-45.0) H Arterial Blood Partial Pressure O2 76.9 mmHg (75.0-100.0) Arterial Blood HCO3 30.7 mmol/L (22.0-26.0) H Arterial Blood Oxygen Saturation 95.1 % (95-100) Arterial Blood Base Excess 5.1 (-2-2) H Jimmy Test Positive Current Medications Medications (Trade) Dose Ordered Sig/Tawanda Route PRN Reason Start Time Stop Time Status Last Admin Dose Admin Acetaminophen (Tylenol) 650 mg Q4H PRN ORAL Temp >100.5 02/07/20 19:09 03/08/20 19:08 Dexamethasone Sodium Phosphate (Decadron 10mg/ ml Inj) 6 mg DAILY IV 02/08/20 09:00 02/17/20 09:01 02/08/20 09:02 Dextrose (Dextrose 50%) 25 ml Q30M PRN IV Hypoglycemia 02/07/20 19:10 05/07/20 19:09 Dextrose (Dextrose 50%) 50 ml Q30M PRN IV Hypoglycemia 02/07/20 19:09 05/07/20 19:08 Heparin Sodium (Porcine) (Heparin 5000 units/ml) 5,000 units EVERY 12 HOURS SUBQ 02/08/20 09:00 03/24/20 08:59 02/08/20 09:03 Magnesium Hydroxide (Mom) 30 ml QHS PRN ORAL Constipation 02/07/20 18:45 03/08/20 18:44 Pantoprazole (Protonix) 40 mg DAILY ORAL 02/08/20 09:00 03/09/20 08:59 02/08/20 09:02 Piperacillin Sod/ Tazobactam Sod 3.375 gm/Dextrose 100 ml @ 25 mls/hr EVERY 8 HOURS IVPB 02/07/20 22:00 02/12/20 21:59 02/08/20 13:32 Remdesivir 100 mg/ Sodium Chloride 250 ml @ 250 mls/hr Q24H IV 02/09/20 09:00 02/12/20 09:59 Sodium Chloride 1,000 ml @ 75 mls/hr [id number] IV 02/08/20 13:30 03/09/20 13:29 02/08/20 13:11 Vancomycin HCl 250 ml @ 166.667 mls/hr Q24H IVPB 02/07/20 21:30 02/12/20 21:29 02/07/20 21:30 Vancomycin HCl ([facility] pharmacy to dose) 1 ea DAILY PRN MISC Per rx protocol 02/07/20 16:00 03/08/20 15:59 Viktor Goodrich MD Feb 08, 2020 19:21
--- NOTE | 2020-02-08 19:44 | General Progress Note ---
Subjective Date patient seen: Feb 08, 2020 ROS Limited/Unobtainable: No Allergies: Coded Allergies: No Known Allergies (Unverified , 02/07/20) Subjective Constitutional: Denies: chills, fever Eye: Denies: eye pain, blurred vision, nose congestion ENT: Denies: ear discharge, nose congestion, throat swelling Respiratory: Denies shortness of breath; Denies: cough Cardiovascular: Denies: chest pain, palpitations, syncope Gastrointestinal: Denies: abdominal pain, constipation, nausea, vomiting, melena, hematemesis Genitourinary: Denies: dysuria, frequency Musculoskeletal: Denies: muscle pain Skin: Denies: rash, dryness Psychiatric: Denies: anxiety, hallucinations Neurological: Denies: headache, seizure Endocrine: Denies: flushing, intolerance to temperature Hematologic/Lymphatic: Denies: easy bleeding Interval events: no acute events overnight Today, patient sitting in bed without non-rebreather mask on, no respiratory distress noted. She denies SOB, chest pain, fever, chills. Objective Last 24 Hour Vital Signs Date Time Temp Pulse Resp B/P (MAP) Pulse Ox O2 Delivery O2 Flow Rate FiO2 02/08/20 16:00 62 02/08/20 16:00 96.5 56 22 128/67 (87) 93 02/08/20 12:06 Nasal Cannula 6.0 02/08/20 12:00 57 02/08/20 12:00 98.8 87 21 121/76 (91) 98 02/08/20 09:00 Non-Rebreather 13.0 02/08/20 08:00 96.5 71 22 128/67 (87) 97 02/08/20 08:00 56 02/08/20 04:00 96.8 56 24 127/65 (85) 96 02/08/20 04:00 56 02/08/20 03:04 Non-Rebreather 10.0 02/08/20 01:04 65 02/08/20 01:00 96.8 55 20 124/58 (80) 98 02/08/20 00:50 97.0 58 18 146/55 100 Non-Rebreather 13.0 02/08/20 00:20 97.0 57 18 139/62 99 Non-Rebreather 13.0 02/07/20 22:55 97.0 62 19 155/52 99 Non-Rebreather 13.0 02/07/20 21:00 98.9 63 22 133/57 100 Non-Rebreather 13.0 Intake and Output 02/07/20 02/08/20 19:00 07:00 Intake Total 0 ml Balance 0 ml Intake Oral 0 ml # Voids 1 Laboratory Tests 02/08/20 08:05: White Blood Count 6.5, Red Blood Count 4.78, Hemoglobin 14.1, Hematocrit 42.7, Mean Corpuscular Volume 89, Mean Corpuscular Hemoglobin 29.4, Mean Corpuscular Hemoglobin Concent 32.9, Red Cell Distribution Width 13.5, Platelet Count 167, Mean Platelet Volume 8.1, Neutrophils (%) (Auto) , Lymphocytes (%) (Auto) , Monocytes (%) (Auto) , Eosinophils (%) (Auto) , Basophils (%) (Auto) , Differential Total Cells Counted 100, Neutrophils % (Manual) 87H, Lymphocytes % (Manual) 10L, Monocytes % (Manual) 3, Eosinophils % (Manual) 0, Basophils % (Manual) 0, Band Neutrophils 0, Platelet Estimate Adequate, Platelet Morphology Normal, Red Blood Cell Morphology Normal, Sodium Level 146H, Potassium Level 3.8, Chloride Level 110H, Carbon Dioxide Level 27, Anion Gap 9, Blood Urea Nitrogen 22H, Creatinine 0.8, Estimat Glomerular Filtration Rate > 60, Glucose Level 299H, Calcium Level 8.3L, Magnesium Level 2.4, Total Bilirubin 0.7, Direct Bilirubin 0.2, Aspartate Amino Transf (AST/SGOT) 77H, Alanine Aminotransferase (ALT/SGPT) 67, Alkaline Phosphatase 92, Pro-B-Type Natriuretic Peptide 310H, Total Protein 6.7, Albumin 2.1L, Globulin 4.6, Albumin/Globulin Ratio 0.5L 02/08/20 08:24: Arterial Blood pH 7.415, Arterial Blood Partial Pressure CO2 49.0H, Arterial Blood Partial Pressure O2 76.9, Arterial Blood HCO3 30.7H, Arterial Blood Oxygen Saturation 95.1, Arterial Blood Base Excess 5.1H, Jimmy Test Positive Height (Feet): 5 Height (Inches): 5.00 Weight (Pounds): 149 Objective General Appearance: WD/WN, no apparent distress, alert, sitting in bed without supplemental oxygen HEENT: normocephalic, atraumatic, anicteric, mucous membranes moist, supple Neck: non-tender, normal alignment, normal inspection Respiratory/Chest: chest wall non-tender, normal breath sounds, no respiratory distress, no accessory muscle use Cardiovascular/Chest: normal rate, regular rhythm Abdomen: non tender, soft, no mass Extremities: normal range of motion, non-tender, no edema Skin Exam: normal pigmentation, warm/dry Neurologic: patient appointment coordinator II-XII grossly normal, alert, normal mood/affect Assessment/Plan Assessment/Plan: A: #COVID-19 infection - diagnosed at SNF #Acute hypoxemic respiratory failure - Improving oxygen requirements. CXR showing pleural effusion. Likely 2/2 COVID pneumonia vs bacterial pneumonia #Metabolic alkalosis #Elevated inflammatory markers - D-dimer, ferritin, CRP #Hypothyroidism #Hypoalbuminemia P: - currently on 6 L NC after weaning patient during today's exam - cardiac monitoring - IV abx Vanc/Zosyn per ID - dexamethasone, remdesivir - holding levothyroxine for now - ID consult, rene Newsome appreciated - Pulm consult, rene Gonsalez appreciated - Nephro consult, rene Mccullough appreciated Code: Full GI: Protonix DVT prophylaxis: Heparin 5000 units twice daily Dispo: Pending improving in hypoxic respiratory failure, back to SNF after Time spent on this encounter was 37 minutes which included 20 minutes of counseling and care coordination. I discussed with the nurse at bedside. Time of note may not reflect time patient was seen. Ronan Chan M.D. Feb 08, 2020 19:44
--- NOTE | 2020-02-08 20:59 | Consultation ---
DATE OF CONSULTATION: 02/08/2020 INFECTIOUS DISEASE CONSULTATION CONSULTING PHYSICIAN: Viktor Goodrich MD. ATTENDING PHYSICIAN: Annika Cramer MD. REFERRING PHYSICIAN: Annika Cramer MD. REASON FOR CONSULTATION: COVID-19 infection, fevers, possible sepsis, possible bacterial pneumonia. CHIEF COMPLAINT: The patient's chief complaint coming in the hospital is shortness of breath and hypoxia. HISTORY OF PRESENT ILLNESS: This is an 89-year-old female who comes from an [facility] care facility where she was tested positive for COVID. The patient became hypoxic. The patient was admitted to [facility] with hypoxia, possible pneumonia, and COVID infection, fevers, possible sepsis. Infectious Disease consultation was requested. The patient was started on Zosyn, vancomycin, remdesivir, and steroids yesterday. MAR was noted. Orders were noted. Notes were reviewed. Final cultures are pending. Followup chest x-ray has been ordered. REVIEW OF SYSTEMS: CONSTITUTIONAL: Generalized fatigue and weakness. She has no Felipe, no central line. She came in with fevers of 101.5 currently. HEAD AND NECK: No head pain or neck pain. CARDIAC: No chest pain. PULMONARY: She has shortness of breath, but less than yesterday. No secretions or hemoptysis. GASTROINTESTINAL: No nausea, vomiting, or diarrhea. SKIN: No rash. NEUROLOGICAL: No seizures. EXTREMITY: No pain. PAST MEDICAL HISTORY: The patient has a past medical history of hypothyroidism, for which she takes levothyroxine. She has no history of diabetes and hypertension. She has no history of cancer mentioned. It looks like she does actually has questionable history of hypertension because she does get metoprolol and clonidine per the records. So, again past medical history is hypothyroidism, gets levothyroxine with possible hypertension she gets clonidine and metoprolol. No history of diabetes it looks like. ALLERGIES: She has no known drug allergies. No antibiotic allergies. SOCIAL HISTORY: Negative for smoking, alcohol, or drug abuse. FAMILY HISTORY: Noncontributory. Negative for tuberculosis or cancer. MEDICATIONS: Upon reviewing the MAR, she is on following medications. She is on remdesivir, dexamethasone, pantoprazole, heparin, Zosyn vancomycin, levothyroxine, and acetaminophen. Outside medications noted and reconciliated. PHYSICAL EXAMINATION: VITAL SIGNS: Temperature 96.5, pulse rate 56, respiratory rate 22, blood pressure 128/67. Saturation 93% on 6 liters. She was on 13 liters prior. T-max temperature 101.9. GENERAL: She has mild shortness of breath, but less than yesterday. She is on 6 liters O2 and she is not on non-rebreather anymore. She is responsive. HEAD AND NECK: Oral exam, no thrush. Eye exam, no icterus. Normocephalic. Neck was supple. No JVD. HEART: Regular. No gallop or murmur. PULMONARY: Few bilateral rhonchi and rales ABDOMEN: Soft. Positive bowel sounds. Nontender. SKIN: No rash. MUSCULOSKELETAL: No effusion. Legs are without cellulitis. PERIPHERAL VASCULAR: No cyanosis or gangrene. GENITOURINARY: No Felipe. LINE SITES: Without phlebitis. NEUROLOGIC: General weakness, alert, responsive. LABORATORY DATA: Creatinine 0.8. White count 6.5, hemoglobin 14.1. CRP was 17.8. Ferritin was also elevated 1084. IMAGING STUDIES: Chest x-ray shows interstitial congestion and atelectatic changes, left effusion, and atelectasis. MICROBIOLOGY: Blood cultures are pending. UA was benign, it was 0 to 2 white cells. Outside COVID testing, I believe by molecular testing was positive. ASSESSMENT AND PLAN: 1. The patient has COVID-19 virus infection, rule out COVID pneumonia, rule out bacterial pneumonia such as aspiration and healthcare-acquired pneumonia versus community-acquired pneumonia, rule out sepsis, fevers, elevated respiratory rate. Fevers certainly could be from the COVID infection. At this time because of the hypoxia, the patient was started on remdesivir and dexamethasone. This is day #2. We will also continue vancomycin and Zosyn for now empirically pending cultures for possible bacterial pneumonia and bacterial infection. Check followup laboratories and chest x-ray. Continue treatment for COVID-19 infection and also possible bacterial infection, sepsis and fevers, and possible bacterial pneumonia. Again, the patient at risk for aspiration, healthcare-acquired pneumonia versus community-acquired pneumonia. 2. Hypothyroidism. Continue thyroid supplementation. 3. Possible hypertension. She is on blood pressure medication. 4. Hypoxia, improved. 5. Pulmonary followup. 6. No known allergies. 7. Social history is negative. 8. Family history is noncontributory. 9. MAR was noted. 10. Case was discussed with RN. Viktor Goodrich M.D. DR: RITCHIE JOB#: [id number] CC:
[2020-02-08] MEDS: Vancomycin 1.25gm/250ml Premix IVPB SCH (21:19)
[2020-02-09] VITALS: BP 145/60
[2020-02-09 03:38] LABS: HEMATOCRIT 40.8 % (37.0-47.0); HEMOGLOBIN 13.4 G/DL (12.0-16.0); MEAN CORPUSCULAR VOLUME 89 FL (80-99); PLATELET COUNT 185 K/UL (150-450); RED CELL DISTRIBUTION WIDTH 13.1 % (11.6-14.8); WHITE BLOOD COUNT 8.3 K/UL (4.8-10.8)
[2020-02-09 03:53] LABS: ALBUMIN/GLOBULIN RATIO 0.5 (1.0-2.7); BILIRUBIN,DIRECT 0.1 MG/DL (0.0-0.3); BILIRUBIN,TOTAL 0.6 MG/DL (0.2-1.0); CALCIUM 8.2 MG/DL (8.5-10.1); POTASSIUM 3.2 MMOL/L (3.5-5.1)
[2020-02-09 04:00] VITALS: BP 152/53
[2020-02-09] MEDS ORDERED: Maintenance Dose:Remdesivir 100mg/NS 230ml x 4 Doses IV SCH ×2 (05:00)
[2020-02-09 08:00] VITALS: BP 153/61
[2020-02-09] MEDS: Heparin 5000 units/ml inj SUBQ SCH ×2 (09:00→20:34)
[2020-02-09] MEDS: Maintenance Dose:Remdesivir 100mg/NS 230ml x 4 Doses IV SCH ×2 (10:45)
[2020-02-09] MEDS: dexAMETHasone 10mg/ml Inj IV SCH (10:45)
[2020-02-09 12:00] VITALS: BP 153/93
--- NOTE | 2020-02-09 12:57 | Nephrology Progress Note ---
Assessment/Plan Plan #Hypoxemic resp failure, #metabolic alkalosis #COVID infection #possible pneumonia #hypernatremia -switch to 1/2 NS - antibiotics per ID - on lovenox - consider remdesevir - appreciate pulm recs - avoid nephrotoxins - monitor lytes time spent 65 min Subjective ROS Limited/Unobtainable: No Objective Objective Last 24 Hour Vital Signs Date Time Temp Pulse Resp B/P (MAP) Pulse Ox O2 Delivery O2 Flow Rate FiO2 02/09/20 09:00 Nasal Cannula 6.0 02/09/20 08:00 57 02/09/20 08:00 98.6 62 22 153/61 (91) 95 02/09/20 04:00 60 02/09/20 04:00 97.0 62 22 152/53 (86) 94 02/09/20 00:00 97.5 59 20 145/60 (88) 94 02/09/20 00:00 57 02/08/20 21:00 Nasal Cannula 6.0 02/08/20 20:00 98.0 67 22 112/62 (79) 94 02/08/20 20:00 66 02/08/20 16:00 62 02/08/20 16:00 96.5 56 22 128/67 (87) 93 Intake and Output 02/08/20 02/09/20 19:00 07:00 Intake Total 340 ml 150 ml Balance 340 ml 150 ml Intake Oral 240 ml 150 ml IV Total 100 ml # Voids 2 2 Laboratory Tests 02/09/20 03:00: White Blood Count 8.3, Red Blood Count 4.60, Hemoglobin 13.4, Hematocrit 40.8, Mean Corpuscular Volume 89, Mean Corpuscular Hemoglobin 29.2, Mean Corpuscular Hemoglobin Concent 32.9, Red Cell Distribution Width 13.1, Platelet Count 185, Mean Platelet Volume 8.4, Neutrophils (%) (Auto) , Lymphocytes (%) (Auto) , Monocytes (%) (Auto) , Eosinophils (%) (Auto) , Basophils (%) (Auto) , Sodium Level 147H, Potassium Level 3.2L, Chloride Level 110H, Carbon Dioxide Level 30, Anion Gap 7, Blood Urea Nitrogen 26H, Creatinine 1.0, Estimat Glomerular Filtration Rate 52.5, Glucose Level 294H, Calcium Level 8.2L, Total Bilirubin 0.6, Direct Bilirubin 0.1, Aspartate Amino Transf (AST/SGOT) 43H, Alanine Aminotransferase (ALT/SGPT) 41, Alkaline Phosphatase 82, Total Protein 6.2L, Albumin 2.0L, Globulin 4.2, Albumin/Globulin Ratio 0.5L Height (Feet): 5 Height (Inches): 5.00 Weight (Pounds): 149 Annika Cramer M.D. Feb 09, 2020 12:57
--- NOTE | 2020-02-09 13:10 | Pulmonology Progress Note ---
Subjective ROS Limited/Unobtainable: No Interval Events: None new Constitutional: Reports: fatigue; Denies: fever HEENT: Repors: no symptoms Respiratory: Reports: no symptoms Cardiovascular: Reports: no symptoms Gastrointestinal/Abdominal: Denies: nausea, vomiting, diarrhea Allergies: Coded Allergies: No Known Allergies (Unverified , 02/07/20) Objective Last 24 Hour Vital Signs Date Time Temp Pulse Resp B/P (MAP) Pulse Ox O2 Delivery O2 Flow Rate FiO2 02/09/20 09:00 Nasal Cannula 6.0 02/09/20 08:00 57 02/09/20 08:00 98.6 62 22 153/61 (91) 95 02/09/20 04:00 60 02/09/20 04:00 97.0 62 22 152/53 (86) 94 02/09/20 00:00 97.5 59 20 145/60 (88) 94 02/09/20 00:00 57 02/08/20 21:00 Nasal Cannula 6.0 02/08/20 20:00 98.0 67 22 112/62 (79) 94 02/08/20 20:00 66 02/08/20 16:00 62 02/08/20 16:00 96.5 56 22 128/67 (87) 93 Intake and Output 02/08/20 02/09/20 19:00 07:00 Intake Total 340 ml 150 ml Balance 340 ml 150 ml Intake Oral 240 ml 150 ml IV Total 100 ml # Voids 2 2 General Appearance: no acute distress HEENT: normocephalic Respiratory: decreased breath sounds Cardiovascular: normal peripheral pulses Abdomen: normal bowel sounds Microbiology Date/Time Source Procedure Growth Status 02/07/20 12:45 Rectum VRE Culture - Final NO VANCOMYCIN RESISTANT ENTEROCOCCUS ... Complete 02/07/20 12:45 Nasal Nares MRSA Culture - Final NO METHICILLIN RESISTANT STAPH AUREUS... Complete 02/07/20 12:40 Nasopharynx Coronavirus COVID-19 PCR ([facility]) - Final Complete 02/07/20 12:40 Blood Blood Culture - Preliminary NO GROWTH AFTER 24 HOURS Resulted 02/07/20 12:25 Blood Blood Culture - Preliminary NO GROWTH AFTER 24 HOURS Resulted Laboratory Tests 02/09/20 03:00: White Blood Count 8.3, Red Blood Count 4.60, Hemoglobin 13.4, Hematocrit 40.8, Mean Corpuscular Volume 89, Mean Corpuscular Hemoglobin 29.2, Mean Corpuscular Hemoglobin Concent 32.9, Red Cell Distribution Width 13.1, Platelet Count 185, Mean Platelet Volume 8.4, Neutrophils (%) (Auto) , Lymphocytes (%) (Auto) , Monocytes (%) (Auto) , Eosinophils (%) (Auto) , Basophils (%) (Auto) , Sodium Level 147H, Potassium Level 3.2L, Chloride Level 110H, Carbon Dioxide Level 30, Anion Gap 7, Blood Urea Nitrogen 26H, Creatinine 1.0, Estimat Glomerular Filtration Rate 52.5, Glucose Level 294H, Calcium Level 8.2L, Total Bilirubin 0.6, Direct Bilirubin 0.1, Aspartate Amino Transf (AST/SGOT) 43H, Alanine Aminotransferase (ALT/SGPT) 41, Alkaline Phosphatase 82, Total Protein 6.2L, Albumin 2.0L, Globulin 4.2, Albumin/Globulin Ratio 0.5L Current Medications Medications (Trade) Dose Ordered Sig/Tawanda Route PRN Reason Start Time Stop Time Status Last Admin Dose Admin Acetaminophen (Tylenol) 650 mg Q4H PRN ORAL Temp >100.5 02/07/20 19:09 03/08/20 19:08 Dexamethasone Sodium Phosphate (Decadron 10mg/ ml Inj) 6 mg DAILY IV 02/08/20 09:00 02/17/20 09:01 02/09/20 10:45 Dextrose 500 ml @ 500 mls/hr ONCE ONCE IV 02/09/20 13:00 02/09/20 13:59 02/09/20 13:04 Dextrose (Dextrose 50%) 25 ml Q30M PRN IV Hypoglycemia 02/07/20 19:10 05/07/20 19:09 Dextrose (Dextrose 50%) 50 ml Q30M PRN IV Hypoglycemia 02/07/20 19:09 05/07/20 19:08 Heparin Sodium (Porcine) (Heparin 5000 units/ml) 5,000 units EVERY 12 HOURS SUBQ 02/08/20 09:00 03/24/20 08:59 02/09/20 09:00 Magnesium Hydroxide (Mom) 30 ml QHS PRN ORAL Constipation 02/07/20 18:45 03/08/20 18:44 Pantoprazole (Protonix) 40 mg DAILY ORAL 02/08/20 09:00 03/09/20 08:59 02/09/20 10:44 Piperacillin Sod/ Tazobactam Sod 3.375 gm/Dextrose 100 ml @ 25 mls/hr EVERY 8 HOURS IVPB 02/07/20 22:00 02/12/20 21:59 02/09/20 06:21 Remdesivir 100 mg/ Sodium Chloride 250 ml @ 250 mls/hr Q24H IV 02/09/20 09:00 02/12/20 09:59 02/09/20 10:45 Sodium Chloride 1,000 ml @ 75 mls/hr [id number] IV 02/08/20 13:30 03/09/20 13:29 02/09/20 03:00 Vancomycin HCl 250 ml @ 166.667 mls/hr Q24H IVPB 02/07/20 21:30 02/12/20 21:29 02/08/20 21:19 Vancomycin HCl (Vanco pharmacy to dose) 1 ea DAILY PRN MISC Per rx protocol 02/07/20 16:00 03/08/20 15:59 Assessment/Plan Assessment/Plan 1. COVID-19 pneumonia. 2. Markedly elevated inflammatory markers. 3. correction resident. DISCUSSION: Agree with admission and care. The patient would benefit from Decadron and Lovenox. This is initiated. Defer to ID for use of remdesivir. Continue oxygen on nonrebreather mask. We will follow carefully. Above plan was discussed with supervising physician. Otoniel Rendon SOFTWARE SYSTEMS ENGINEER Feb 09, 2020 13:10
--- NOTE | 2020-02-09 13:29 | Diagnostic Imaging Report ---
Indication: Shortness of breath Technique: One view of the chest Comparison: 02/07/2020 Findings: Left pleural effusion and mild interstitial congestion are unchanged. Right perihilar atelectasis is unchanged. Impression: Unchanged, over one day, findings as above.
--- NOTE | 2020-02-09 13:43 | Consultation ---
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 Surgery called to evaluate assist with care. Patient seen, patient evaluated, chart reviewed Allergies: Coded Allergies: No Known Allergies (Unverified , 02/07/20) COVID-19 Screening Contact w/high risk pt: Yes Experienced COVID-19 symptoms?: Yes Coronavirus symptoms experienc: Fever (T>100.4F or >38C), Shortness of Breath, Cough Medication History Scheduled Atorvastatin Calcium* (Lipitor*), 80 MG ORAL BEDTIME, (Reported) Clonidine Hcl* (Catapres*), 0.1 MG ORAL EVERY 8 HOURS, (Reported) Levothyroxine Sodium* (Synthorid*), 50 MCG ORAL DAILY, (Reported) Memantine Hcl* (Namenda*), 5 MG ORAL TWICE A DAY, (Reported) Metoprolol Succinate* (Metoprolol Succinate*), 25 MG ORAL DAILY, (Reported) Scheduled PRN Acetaminophen* (Acetaminophen 325MG Tablet*), 325 MG ORAL Q4H PRN for , (Reported) Miscellaneous Medications Ceftriaxone Sodium (Ceftriaxone), 1 GM IV, (Reported) Patient History Limited by: age, medical condition History Provided By: Medical Record, PMD Healthcare decision maker Resuscitation status Advanced Directive on File Past Medical/Surgical History Past Medical/Surgical History: (1) Sacral decubitus ulcer (2) Respiratory distress (3) COVID-19 Review of Systems Review of Symptoms General ROS: no weight loss or fever Psychological ROS: no depression or mood changes, no memory loss Ophthalmic ROS: no visual changes or eye irritation ENT ROS: no nasal congestion, hearing loss, dizziness Allergy and Immunology ROS: no allergic symptoms or urticaria Hematological and Lymphatic ROS: no swollen glands, unusual bleeding or bruising Endocrine ROS: no polyuria, polydipsia, weight changes, temperature intolerance Respiratory ROS: no cough, shortness of breath, or wheezing Cardiovascular ROS: no chest pain or dyspnea on exertion Gastrointestinal ROS: denies abdominal pain, bright red blood in stool. Musculoskeletal ROS: no myalgias or arthralgias Neurological ROS: no TIA or stroke symptoms Dermatological ROS: no new or changing skin lesions, rashes or pruritis Physical Exam Physical Exam General appearance: alert, cooperative, no distress, appears stated age Head: Normocephalic, without obvious abnormality, atraumatic Eyes: conjunctivae/corneas clear. PERRL, EOM's intact. Fundi benign Throat: Lips, mucosa, and tongue normal. Teeth and gums normal Neck: supple, symmetrical, trachea midline, no adenopathy, thyroid: not enlarged, symmetric, no tenderness/mass/nodules, no carotid bruit and no JVD Lungs: clear to auscultation bilaterally Heart: regular rate and rhythm, S1, S2 normal, no murmur, click, rub or gallop Abdomen: soft, non-tender. Bowel sounds normal. No masses, no organomegaly Extremities: extremities normal, atraumatic, no cyanosis or edema Pulses: 2+ and symmetric Skin: Skin see below Neurologic: Grossly normal Last 24 Hour Vital Signs Date Time Temp Pulse Resp B/P (MAP) Pulse Ox O2 Delivery O2 Flow Rate FiO2 02/09/20 09:00 Nasal Cannula 6.0 02/09/20 08:00 57 02/09/20 08:00 98.6 62 22 153/61 (91) 95 02/09/20 04:00 60 02/09/20 04:00 97.0 62 22 152/53 (86) 94 02/09/20 00:00 97.5 59 20 145/60 (88) 94 02/09/20 00:00 57 02/08/20 21:00 Nasal Cannula 6.0 02/08/20 20:00 98.0 67 22 112/62 (79) 94 02/08/20 20:00 66 02/08/20 16:00 62 02/08/20 16:00 96.5 56 22 128/67 (87) 93 Intake and Output 02/08/20 02/09/20 19:00 07:00 Intake Total 340 ml 150 ml Balance 340 ml 150 ml Intake Oral 240 ml 150 ml IV Total 100 ml # Voids 2 2 Laboratory Tests Test 02/09/20 03:00 White Blood Count 8.3 K/UL (4.8-10.8) Red Blood Count 4.60 M/UL (4.20-5.40) Hemoglobin 13.4 G/DL (12.0-16.0) Hematocrit 40.8 % (37.0-47.0) Mean Corpuscular Volume 89 FL (80-99) Mean Corpuscular Hemoglobin 29.2 PG (27.0-31.0) Mean Corpuscular Hemoglobin Concent 32.9 G/DL (32.0-36.0) Red Cell Distribution Width 13.1 % (11.6-14.8) Platelet Count 185 K/UL (150-450) Mean Platelet Volume 8.4 FL (6.5-10.1) Neutrophils (%) (Auto) % (45.0-75.0) Lymphocytes (%) (Auto) % (20.0-45.0) Monocytes (%) (Auto) % (1.0-10.0) Eosinophils (%) (Auto) % (0.0-3.0) Basophils (%) (Auto) % (0.0-2.0) Sodium Level 147 MMOL/L (136-145) H Potassium Level 3.2 MMOL/L (3.5-5.1) L Chloride Level 110 MMOL/L (98-107) H Carbon Dioxide Level 30 MMOL/L (21-32) Anion Gap 7 mmol/L (5-15) Blood Urea Nitrogen 26 mg/dL (7-18) H Creatinine 1.0 MG/DL (0.55-1.30) Estimat Glomerular Filtration Rate 52.5 mL/min (>60) Glucose Level 294 MG/DL (74-106) H Calcium Level 8.2 MG/DL (8.5-10.1) L Total Bilirubin 0.6 MG/DL (0.2-1.0) Direct Bilirubin 0.1 MG/DL (0.0-0.3) Aspartate Amino Transf (AST/SGOT) 43 U/L (15-37) H Alanine Aminotransferase (ALT/SGPT) 41 U/L (12-78) Alkaline Phosphatase 82 U/L (46-116) Total Protein 6.2 G/DL (6.4-8.2) L Albumin 2.0 G/DL (3.4-5.0) L Globulin 4.2 g/dL Albumin/Globulin Ratio 0.5 (1.0-2.7) L Height (Feet): 5 Height (Inches): 5.00 Weight (Pounds): 149 Medications Current Medications Medications (Trade) Dose Ordered Sig/Tawanda Route PRN Reason Start Time Stop Time Status Last Admin Dose Admin Acetaminophen (Tylenol) 650 mg Q4H PRN ORAL Temp >100.5 02/07/20 19:09 03/08/20 19:08 Dexamethasone Sodium Phosphate (Decadron 10mg/ ml Inj) 6 mg DAILY IV 02/08/20 09:00 02/17/20 09:01 02/09/20 10:45 Dextrose 500 ml @ 500 mls/hr ONCE ONCE IV 02/09/20 13:00 02/09/20 13:59 02/09/20 13:04 Dextrose (Dextrose 50%) 25 ml Q30M PRN IV Hypoglycemia 02/07/20 19:10 05/07/20 19:09 Dextrose (Dextrose 50%) 50 ml Q30M PRN IV Hypoglycemia 02/07/20 19:09 05/07/20 19:08 Heparin Sodium (Porcine) (Heparin 5000 units/ml) 5,000 units EVERY 12 HOURS SUBQ 02/08/20 09:00 03/24/20 08:59 02/09/20 09:00 Magnesium Hydroxide (Mom) 30 ml QHS PRN ORAL Constipation 02/07/20 18:45 03/08/20 18:44 Pantoprazole (Protonix) 40 mg DAILY ORAL 02/08/20 09:00 03/09/20 08:59 02/09/20 10:44 Piperacillin Sod/ Tazobactam Sod 3.375 gm/Dextrose 100 ml @ 25 mls/hr EVERY 8 HOURS IVPB 02/07/20 22:00 02/12/20 21:59 02/09/20 06:21 Remdesivir 100 mg/ Sodium Chloride 250 ml @ 250 mls/hr Q24H IV 02/09/20 09:00 02/12/20 09:59 02/09/20 10:45 Sodium Chloride 1,000 ml @ 75 mls/hr [id number] IV 02/08/20 13:30 03/09/20 13:29 02/09/20 03:00 Vancomycin HCl 250 ml @ 166.667 mls/hr Q24H IVPB 02/07/20 21:30 02/12/20 21:29 02/08/20 21:19 Vancomycin HCl (Vanco pharmacy to dose) 1 ea DAILY PRN MISC Per rx protocol 02/07/20 16:00 03/08/20 15:59 Assessment/Plan Problem List: (1) Respiratory distress Assessment & Plan: Left pleural effusion and mild interstitial congestion are unchanged. Right perihilar atelectasis is unchanged. respiratory care as per pulm cont O2 ICD Codes: R06.03 - Acute respiratory distress SNOMED: 454183614 (2) Sacral decubitus ulcer Assessment & Plan: Patient identified admission to have a sacral cubitus ulcer. 3 cm x 2 cm x 2 mm deep stage III/stage II sacral decubitus ulcer identified on the left. No active drainage no signs of active infection no tunneling noted. Wound otherwise clean. Likely from shear forces. Wash wound daily with normal saline apply Thera honey gauze followed by Optifoam dressing. Turn every 2 hours. Offload pressure with pillows. Heel protectors. Nutritional optimization. Will follow with recommendations. Thank you for letting participate patient's care DAILY ESTIMATED NEEDS: Needs based on wound/ 67kg 25-30 kcals/kg total kcals 1.25-1.5 g protein/kg 83-100 g total protein 25-30 mL/kg total fluid mLs NUTRITION DIAGNOSIS: Increased kcal/prot needs R/T wound healing as evidenced by pt admitted w/ open lt buttock wound per photo, pending evaluation, currently refusing meals, pt is COVID-19 positive. 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
[2020-02-09 16:00] VITALS: BP 146/52
--- NOTE | 2020-02-09 17:54 | Cardiology Report ---
APPROVED REPORT EKG Measurement Heart [id number] <Conclusion> Normal sinus rhythm with sinus arrhythmia Voltage criteria for left ventricular hypertrophy Nonspecific T wave abnormality Abnormal ECG
--- NOTE | 2020-02-09 18:04 | General Progress Note ---
Subjective Date patient seen: Feb 09, 2020 ROS Limited/Unobtainable: No Allergies: Coded Allergies: No Known Allergies (Unverified , 02/07/20) Subjective Constitutional: Denies: chills, fever Eye: Denies: eye pain, blurred vision, nose congestion ENT: Denies: ear discharge, nose congestion, throat swelling Respiratory: Denies shortness of breath; Denies: cough Cardiovascular: Denies: chest pain, palpitations, syncope Gastrointestinal: Denies: abdominal pain, constipation, nausea, vomiting, melena, hematemesis Genitourinary: Denies: dysuria, frequency Musculoskeletal: Denies: muscle pain Skin: Denies: rash, dryness Psychiatric: Denies: anxiety, hallucinations Neurological: Denies: headache, seizure Endocrine: Denies: flushing, intolerance to temperature Hematologic/Lymphatic: Denies: easy bleeding Interval events: no acute events overnight Today, patient laying in bed with O2 via NC. She states she feels well. She denies SOB, chest pain, fever, chills. Objective Last 24 Hour Vital Signs Date Time Temp Pulse Resp B/P (MAP) Pulse Ox O2 Delivery O2 Flow Rate FiO2 02/09/20 16:00 98.1 80 21 146/52 (83) 95 02/09/20 16:00 73 02/09/20 12:00 54 02/09/20 12:00 98.1 67 20 153/93 (113) 95 02/09/20 09:00 Nasal Cannula 6.0 02/09/20 08:00 57 02/09/20 08:00 98.6 62 22 153/61 (91) 95 02/09/20 04:00 60 02/09/20 04:00 97.0 62 22 152/53 (86) 94 02/09/20 00:00 97.5 59 20 145/60 (88) 94 02/09/20 00:00 57 02/08/20 21:00 Nasal Cannula 6.0 02/08/20 20:00 98.0 67 22 112/62 (79) 94 02/08/20 20:00 66 Intake and Output 02/08/20 02/09/20 19:00 07:00 Intake Total 340 ml 150 ml Balance 340 ml 150 ml Intake Oral 240 ml 150 ml IV Total 100 ml # Voids 2 2 Laboratory Tests 02/09/20 03:00: White Blood Count 8.3, Red Blood Count 4.60, Hemoglobin 13.4, Hematocrit 40.8, Mean Corpuscular Volume 89, Mean Corpuscular Hemoglobin 29.2, Mean Corpuscular Hemoglobin Concent 32.9, Red Cell Distribution Width 13.1, Platelet Count 185, Mean Platelet Volume 8.4, Neutrophils (%) (Auto) , Lymphocytes (%) (Auto) , Monocytes (%) (Auto) , Eosinophils (%) (Auto) , Basophils (%) (Auto) , Sodium Le nirmal 147H, Potassium Level 3.2L, Chloride Level 110H, Carbon Dioxide Level 30, Anion Gap 7, Blood Urea Nitrogen 26H, Creatinine 1.0, Estimat Glomerular Filtration Rate 52.5, Glucose Level 294H, Calcium Level 8.2L, Total Bilirubin 0.6, Direct Bilirubin 0.1, Aspartate Amino Transf (AST/SGOT) 43H, Alanine Aminotransferase (ALT/SGPT) 41, Alkaline Phosphatase 82, Total Protein 6.2L, Albumin 2.0L, Globulin 4.2, Albumin/Globulin Ratio 0.5L Height (Feet): 5 Height (Inches): 5.00 Weight (Pounds): 149 Objective General Appearance: WD/WN, no apparent distress, alert, laying in bed with nasal cannula HEENT: normocephalic, atraumatic, anicteric, mucous membranes moist, supple Neck: non-tender, normal alignment, normal inspection Respiratory/Chest: chest wall non-tender, normal breath sounds, no respiratory distress, no accessory muscle use Cardiovascular/Chest: normal rate, regular rhythm Abdomen: non tender, soft, no mass Extremities: normal range of motion, non-tender, no edema Skin Exam: normal pigmentation, warm/dry 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 CXR showing pleural effusion. Likely 2/2 COVID pneumonia vs bacterial pneumonia #Metabolic alkalosis #Elevated inflammatory markers - D-dimer, ferritin, CRP #Hypothyroidism #Hypoalbuminemia P: - still on 6 L NC oxygen - cardiac monitoring - IV abx Vanc/Zosyn per ID - dexamethasone, remdesivir - holding levothyroxine for now - ID consult, Dr. Conte, recs appreciated - Pulm consult, Dr. Cartwright recs appreciated - Nephro consult, Dr. Cramer recguicho appreciated Code: Full GI: Protonix DVT prophylaxis: Heparin 5000 units twice daily Dispo: Pending improving in hypoxic respiratory failure, back to SNF after Time spent on this encounter was 35 minutes which included 18 minutes of counseling and care coordination. I discussed with the nurse at bedside. Time of note may not reflect time patient was seen. Ronan Chan M.D. Feb 09, 2020 18:04
[2020-02-09 20:00] VITALS: BP 157/45
[2020-02-09] MEDS: Vancomycin 1.25gm/250ml Premix IVPB SCH (20:33)
[2020-02-10] VITALS: BP 162/66
[2020-02-10 04:00] VITALS: BP 148/57
[2020-02-10 06:12] LABS: HEMATOCRIT 37.9 % (37.0-47.0); HEMOGLOBIN 13.4 G/DL (12.0-16.0); MEAN CORPUSCULAR VOLUME 85 FL (80-99); PLATELET COUNT 206 K/UL (150-450); RED BLOOD COUNT 4.45 M/UL (4.20-5.40); RED CELL DISTRIBUTION WIDTH 14.4 % (11.6-14.8); WHITE BLOOD COUNT 7.8 K/UL (4.8-10.8)
[2020-02-10 06:34] LABS: ALBUMIN/GLOBULIN RATIO 0.5 (1.0-2.7); BILIRUBIN,DIRECT 0.2 MG/DL (0.0-0.3); BILIRUBIN,TOTAL 0.7 MG/DL (0.2-1.0); POTASSIUM 3.5 MMOL/L (3.5-5.1)
[2020-02-10 08:00] VITALS: BP 156/62
[2020-02-10] MEDS: dexAMETHasone 10mg/ml Inj IV SCH (08:46)
[2020-02-10] MEDS: Ascorbic Acid 500mg tab ORAL SCH (08:46)
[2020-02-10] MEDS: Zinc Sulfate 220mg ORAL SCH (08:47)
[2020-02-10] MEDS: Heparin 5000 units/ml inj SUBQ SCH ×2 (08:49→20:43)
[2020-02-10] MEDS: Maintenance Dose:Remdesivir 100mg/NS 230ml x 4 Doses IV SCH ×2 (09:43)
[2020-02-10 12:00] VITALS: BP 150/57
[2020-02-10] MEDS ORDERED: D5NS 1000ml IV ONE ×2 (13:15→13:16)
[2020-02-10] MEDS ORDERED: Tubing IV Secondary IV ONE (13:16)
[2020-02-10] MEDS ORDERED: NS 275ml ONE (13:16)
--- NOTE | 2020-02-10 14:37 | Surgery Progress Note ---
Surgery Progress Note Subjective Symptoms: improved, tolerating diet, passing flatus, BM Objective Last 24 Hour Vital Signs Date Time Temp Pulse Resp B/P (MAP) Pulse Ox O2 Delivery O2 Flow Rate FiO2 02/10/20 12:00 98.0 71 20 150/57 (88) 93 02/10/20 09:00 Nasal Cannula 6.0 02/10/20 08:00 98.2 65 20 156/62 (93) 93 02/10/20 08:00 72 02/10/20 04:00 98.4 90 22 148/57 (87) 92 02/10/20 04:00 73 02/10/20 00:00 74 02/10/20 00:00 98.5 83 24 162/66 (98) 91 02/09/20 21:00 Nasal Cannula 6.0 02/09/20 20:00 98.3 79 26 157/45 (82) 92 02/09/20 20:00 81 02/09/20 16:00 98.1 80 21 146/52 (83) 95 02/09/20 16:00 73 I&O Intake and Output 02/09/20 02/10/20 19:00 07:00 Intake Total 400 ml Output Total 400 ml Balance 400 ml -400 ml Intake Oral 400 ml Output Urine Total 400 ml # Voids 2 1 Dressing: dry Wound: clean Cardiovascular: RSR Respiratory: clear Abdomen: non-tender, present bowel sounds Extremities: no edema, no tenderness, no cyanosis Laboratory Tests Test 02/10/20 04:50 White Blood Count 7.8 K/UL (4.8-10.8) Red Blood Count 4.45 M/UL (4.20-5.40) Hemoglobin 13.4 G/DL (12.0-16.0) Hematocrit 37.9 % (37.0-47.0) Mean Corpuscular Volume 85 FL (80-99) Mean Corpuscular Hemoglobin 30.0 PG (27.0-31.0) Mean Corpuscular Hemoglobin Concent 35.3 G/DL (32.0-36.0) Red Cell Distribution Width 14.4 % (11.6-14.8) Platelet Count 206 K/UL (150-450) Mean Platelet Volume 8.7 FL (6.5-10.1) Neutrophils (%) (Auto) % (45.0-75.0) Lymphocytes (%) (Auto) % (20.0-45.0) Monocytes (%) (Auto) % (1.0-10.0) Eosinophils (%) (Auto) % (0.0-3.0) Basophils (%) (Auto) % (0.0-2.0) Differential Total Cells Counted 100 Neutrophils % (Manual) 91 % (45-75) H Lymphocytes % (Manual) 6 % (20-45) L Monocytes % (Manual) 2 % (1-10) Eosinophils % (Manual) 0 % (0-3) Basophils % (Manual) 0 % (0-2) Band Neutrophils 1 % (0-8) Platelet Estimate Adequate Platelet Morphology Normal Red Blood Cell Morphology Normal Sodium Level 147 MMOL/L (136-145) H Potassium Level 3.5 MMOL/L (3.5-5.1) Chloride Level 112 MMOL/L (98-107) H Carbon Dioxide Level 29 MMOL/L (21-32) Anion Gap 6 mmol/L (5-15) Blood Urea Nitrogen 26 mg/dL (7-18) H Creatinine 1.0 MG/DL (0.55-1.30) Estimat Glomerular Filtration Rate 52.5 mL/min (>60) Glucose Level 361 MG/DL (74-106) H Calcium Level 8.0 MG/DL (8.5-10.1) L Total Bilirubin 0.7 MG/DL (0.2-1.0) Direct Bilirubin 0.2 MG/DL (0.0-0.3) Aspartate Amino Transf (AST/SGOT) 53 U/L (15-37) H Alanine Aminotransferase (ALT/SGPT) 62 U/L (12-78) Alkaline Phosphatase 82 U/L (46-116) Total Protein 6.1 G/DL (6.4-8.2) L Albumin 2.0 G/DL (3.4-5.0) L Globulin 4.1 g/dL Albumin/Globulin Ratio 0.5 (1.0-2.7) L Plan Problems: (1) Respiratory distress Assessment & Plan: Left pleural effusion and mild interstitial congestion are unchanged. Right perihilar atelectasis is unchanged. respiratory care as per pulm cont O2 improved d/c planning (2) Sacral decubitus ulcer Assessment & Plan: Patient identified admission to have a sacral cubitus ulcer. 3 cm x 2 cm x 2 mm deep stage III/stage II sacral decubitus ulcer identified on the left. No active drainage no signs of active infection no tunneling noted. Wound otherwise clean. Likely from shear forces. Wash wound daily with normal saline apply Thera honey gauze followed by Optifoam dressing. Turn every 2 hours. Offload pressure with pillows. Heel protectors. Nutritional optimization. Will follow with recommendations. Thank you for letting participate patient's care DAILY ESTIMATED NEEDS: Needs based on wound/ 67kg 25-30 kcals/kg total kcals 1.25-1.5 g protein/kg 83-100 g total protein 25-30 mL/kg total fluid mLs NUTRITION DIAGNOSIS: Increased kcal/prot needs R/T wound healing as evidenced by pt admitted w/ open lt buttock wound per photo, pending evaluation, currently refusing meals, pt is COVID-19 positive. 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
--- NOTE | 2020-02-10 15:58 | Infectious Diseases Prog Note ---
Assessment/Plan Assessment/Plan ASSESSMENT AND PLAN: 1. covid-19 infection, pna, ? bacterial pna, sepsis, fevers, hypoxia - zosyn - day # 4 abx, discontinue vancomycin - dexamethasone and remdesivir - day # 4 - monitor labs and hypoxia 2. Hypothyroidism. Continue thyroid supplementation. 3. Possible hypertension. She is on blood pressure medication. 4. Hypoxia, improved. 5. Pulmonary followup. 6. No known allergies. 7. Social history is negative. 8. Family history is noncontributory. 9. MAR was noted. 10. Case was discussed with RN. Subjective Constitutional: Reports: fatigue; Denies: fever HEENT: Denies: congestion Respiratory: Denies: shortness of breath Cardiovascular: Denies: chest pain Gastrointestinal/Abdominal: Denies: nausea, vomiting, diarrhea Genitourinary: Reports: other - no manzano Neurologic: Denies: headache Psychiatric: Denies: depression Skin: Denies: rash Hematologic: Denies: bleeding Musculoskeletal: Denies: pain Allergies: Coded Allergies: No Known Allergies (Unverified , 02/07/20) Objective Last 24 Hour Vital Signs Date Time Temp Pulse Resp B/P (MAP) Pulse Ox O2 Delivery O2 Flow Rate FiO2 02/10/20 12:00 98.0 71 20 150/57 (88) 93 02/10/20 12:00 69 02/10/20 09:00 Nasal Cannula 6.0 02/10/20 08:00 98.2 65 20 156/62 (93) 93 02/10/20 08:00 72 02/10/20 04:00 98.4 90 22 148/57 (87) 92 02/10/20 04:00 73 02/10/20 00:00 74 02/10/20 00:00 98.5 83 24 162/66 (98) 91 02/09/20 21:00 Nasal Cannula 6.0 02/09/20 20:00 98.3 79 26 157/45 (82) 92 02/09/20 20:00 81 02/09/20 16:00 98.1 80 21 146/52 (83) 95 02/09/20 16:00 73 Height (Feet): 5 Height (Inches): 5.00 Weight (Pounds): 149 General Appearance: no acute distress, other - mild sob noted HEENT: normocephalic, atraumatic, anicteric Respiratory/Chest: no respiratory distress, crackles/rales, rhonchi - bilaterally Cardiovascular: normal rate, regular rhythm Abdomen: normal bowel sounds, soft, non tender, no organomegaly Genitourinary: other - no manzano seen Extremities: no cyanosis Skin: no rash Neurologic/Psychiatric: 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 Right perihilar atelectasis is unchanged. Impression: Unchanged, over one day, findings as above. Microbiology Date/Time Source Procedure Growth Status 02/07/20 12:45 Rectum - Final NO CARBAPENEM-RESISTANT ENTEROBACTERI... Complete 02/07/20 12:45 Nasal Nares MRSA Culture - Final NO METHICILLIN RESISTANT STAPH AUREUS... Complete 02/07/20 12:40 Blood Blood Culture - Preliminary NO GROWTH AFTER 72 HOURS Resulted Laboratory Tests Test 02/10/20 04:50 White Blood Count 7.8 K/UL (4.8-10.8) Red Blood Count 4.45 M/UL (4.20-5.40) Hemoglobin 13.4 G/DL (12.0-16.0) Hematocrit 37.9 % (37.0-47.0) Mean Corpuscular Volume 85 FL (80-99) Mean Corpuscular Hemoglobin 30.0 PG (27.0-31.0) Mean Corpuscular Hemoglobin Concent 35.3 G/DL (32.0-36.0) Red Cell Distribution Width 14.4 % (11.6-14.8) Platelet Count 206 K/UL (150-450) Mean Platelet Volume 8.7 FL (6.5-10.1) Neutrophils (%) (Auto) % (45.0-75.0) Lymphocytes (%) (Auto) % (20.0-45.0) Monocytes (%) (Auto) % (1.0-10.0) Eosinophils (%) (Auto) % (0.0-3.0) Basophils (%) (Auto) % (0.0-2.0) Differential Total Cells Counted 100 Neutrophils % (Manual) 91 % (45-75) H Lymphocytes % (Manual) 6 % (20-45) L Monocytes % (Manual) 2 % (1-10) Eosinophils % (Manual) 0 % (0-3) Basophils % (Manual) 0 % (0-2) Band Neutrophils 1 % (0-8) Platelet Estimate Adequate Platelet Morphology Normal Red Blood Cell Morphology Normal Sodium Level 147 MMOL/L (136-145) H Potassium Level 3.5 MMOL/L (3.5-5.1) Chloride Level 112 MMOL/L (98-107) H Carbon Dioxide Level 29 MMOL/L (21-32) Anion Gap 6 mmol/L (5-15) Blood Urea Nitrogen 26 mg/dL (7-18) H Creatinine 1.0 MG/DL (0.55-1.30) Estimat Glomerular Filtration Rate 52.5 mL/min (>60) Glucose Level 361 MG/DL (74-106) H Calcium Level 8.0 MG/DL (8.5-10.1) L Total Bilirubin 0.7 MG/DL (0.2-1.0) Direct Bilirubin 0.2 MG/DL (0.0-0.3) Aspartate Amino Transf (AST/SGOT) 53 U/L (15-37) H Alanine Aminotransferase (ALT/SGPT) 62 U/L (12-78) Alkaline Phosphatase 82 U/L (46-116) Total Protein 6.1 G/DL (6.4-8.2) L Albumin 2.0 G/DL (3.4-5.0) L Globulin 4.1 g/dL Albumin/Globulin Ratio 0.5 (1.0-2.7) L Current Medications Medications (Trade) Dose Ordered Sig/Tawanda Route PRN Reason Start Time Stop Time Status Last Admin Dose Admin Acetaminophen (Tylenol) 650 mg Q4H PRN ORAL Temp >100.5 02/07/20 19:09 03/08/20 19:08 Ascorbic Acid (Vitamin C) 250 mg DAILY ORAL 02/10/20 09:00 03/11/20 08:59 02/10/20 08:46 Dexamethasone Sodium Phosphate (Decadron 4mg/ml vial) 6 mg DAILY IVP 02/11/20 09:00 02/17/20 09:01 Dextrose (Dextrose 50%) 25 ml Q30M PRN IV Hypoglycemia 11/25/20 19:10 05/07/20 19:09 Dextrose (Dextrose 50%) 50 ml Q30M PRN IV Hypoglycemia 02/07/20 19:09 05/07/20 19:08 Heparin Sodium (Porcine) (Heparin 5000 units/ml) 5,000 units EVERY 12 HOURS SUBQ 02/08/20 09:00 03/24/20 08:59 02/10/20 08:49 Magnesium Hydroxide (Mom) 30 ml QHS PRN ORAL Constipation 02/07/20 18:45 03/08/20 18:44 Multivitamins (Multivitamins) 1 tab DAILY ORAL 02/10/20 09:00 03/11/20 08:59 02/10/20 08:46 Pantoprazole (Protonix) 40 mg DAILY ORAL 02/08/20 09:00 03/09/20 08:59 02/10/20 08:47 Piperacillin Sod/ Tazobactam Sod 3.375 gm/Dextrose 100 ml @ 25 mls/hr EVERY 8 HOURS IVPB 02/07/20 22:00 02/12/20 21:59 02/10/20 15:25 Remdesivir 100 mg/ Sodium Chloride 250 ml @ 250 mls/hr Q24H IV 02/09/20 09:00 02/12/20 09:59 02/10/20 09:43 Sodium Chloride 1,000 ml @ 75 mls/hr [id number] IV 02/08/20 13:30 03/09/20 13:29 02/10/20 05:26 Vancomycin HCl 250 ml @ 166.667 mls/hr Q24H IVPB 02/07/20 21:30 02/12/20 21:29 02/09/20 20:33 Vancomycin HCl (Vanco pharmacy to dose) 1 ea DAILY PRN MISC Per rx protocol 02/07/20 16:00 03/08/20 15:59 Zinc Sulfate (Zinc Sulfate) 220 mg DAILY ORAL 02/10/20 09:00 02/20/20 08:59 02/10/20 08:47 Viktor Goodrich MD Feb 10, 2020 15:58
[2020-02-10 16:00] VITALS: BP 147/60
--- NOTE | 2020-02-10 17:18 | General Progress Note ---
Subjective Date patient seen: Feb 10, 2020 ROS Limited/Unobtainable: No Allergies: Coded Allergies: No Known Allergies (Unverified , 02/07/20) Subjective Constitutional: Denies: chills, fever Eye: Denies: eye pain, blurred vision, nose congestion ENT: Denies: ear discharge, nose congestion, throat swelling Respiratory: Denies shortness of breath; Denies: cough Cardiovascular: Denies: chest pain, palpitations, syncope Gastrointestinal: Denies: abdominal pain, constipation, nausea, vomiting, melena, hematemesis Genitourinary: Denies: dysuria, frequency Musculoskeletal: Denies: muscle pain Skin: Denies: rash, dryness Psychiatric: Denies: anxiety, hallucinations Neurological: Denies: headache, seizure Endocrine: Denies: flushing, intolerance to temperature Hematologic/Lymphatic: Denies: easy bleeding Interval events: no acute events overnight Today, remains in bed, breathing comfortably. She has no complaints today. She denies SOB, chest pain, fever, chills. Objective Last 24 Hour Vital Signs Date Time Temp Pulse Resp B/P (MAP) Pulse Ox O2 Delivery O2 Flow Rate FiO2 02/10/20 16:00 73 02/10/20 16:00 97.9 76 18 147/60 (89) 94 02/10/20 12:00 98.0 71 20 150/57 (88) 93 02/10/20 12:00 69 02/10/20 09:00 Nasal Cannula 6.0 02/10/20 08:00 98.2 65 20 156/62 (93) 93 02/10/20 08:00 72 02/10/20 04:00 98.4 90 22 148/57 (87) 92 02/10/20 04:00 73 02/10/20 00:00 74 02/10/20 00:00 98.5 83 24 162/66 (98) 91 02/09/20 21:00 Nasal Cannula 6.0 02/09/20 20:00 98.3 79 26 157/45 (82) 92 02/09/20 20:00 81 Intake and Output 02/09/20 02/10/20 18:59 06:59 Intake Total 400 ml Output Total 400 ml Balance 400 ml -400 ml Intake Oral 400 ml Output Urine Total 400 ml # Voids 2 1 Laboratory Tests 02/10/20 04:50: White Blood Count 7.8, Red Blood Count 4.45, Hemoglobin 13.4, Hematocrit 37.9, Mean Corpuscular Volume 85, Mean Corpuscular Hemoglobin 30.0, Mean Corpuscular Hemoglobin Concent 35.3, Red Cell Distribution Width 14.4, Platelet Count 206, Mean Platelet Volume 8.7, Neutrophils (%) (Auto) , Lymphocytes (%) (Auto) , Monocytes (%) (Auto) , Eosinophils (%) (Auto) , Basophils (%) (Auto) , Differential Total Cells Counted 100, Neutrophils % (Manual) 91H, Lymphocytes % (Manual) 6L, Monocytes % (Manual) 2, Eosinophils % (Manual) 0, Basophils % (Manual) 0, Band Neutrophils 1, Platelet Estimate Adequate, Platelet Morphology Normal, Red Blood Cell Morphology Normal, Sodium Level 147H, Potassium Level 3.5, Chloride Level 112H, Carbon Dioxide Level 29, Anion Gap 6, Blood Urea Nitrogen 26H, Creatinine 1.0, Estimat Glomerular Filtration Rate 52.5, Glucose Level 361H, Calcium Level 8.0L, Total Bilirubin 0.7, Direct Bilirubin 0.2, Aspartate Amino Transf (AST/SGOT) 53H, Alanine Aminotransferase (ALT/SGPT) 62, Alkaline Phosphatase 82, Total Protein 6.1L, Albumin 2.0L, Globulin 4.1, Albumin/Globulin Ratio 0.5L Height (Feet): 5 Height (Inches): 5.00 Weight (Pounds): 149 Objective General Appearance: WD/WN, no apparent distress, alert, laying in bed with nasal cannula HEENT: normocephalic, atraumatic, anicteric, mucous membranes moist, supple Neck: non-tender, normal alignment, normal inspection Respiratory/Chest: chest wall non-tender, normal breath sounds, no respiratory distress, no accessory muscle use Cardiovascular/Chest: normal rate, regular rhythm Abdomen: non tender, soft, no mass Extremities: normal range of motion, non-tender, no edema, arms in soft restraints Skin Exam: normal pigmentation, warm/dry 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 CXR showing pleural effusion. Likely 2/2 COVID pneumonia vs bacterial pneumonia #Metabolic alkalosis #Elevated inflammatory markers - D-dimer, ferritin, CRP #Hypothyroidism #Hypoalbuminemia P: - stable on 6 L NC oxygen - cardiac monitoring - IV abx Zosyn per ID - vancomycin discontinued per ID - dexamethasone, remdesivir - holding levothyroxine for now - ID consult, Dr. Conte, recs appreciated - Pulm consult, Dr. Cartwright, recs appreciated - Nephro consult, Dr. Cramer, recs appreciated Code: Full GI: Protonix DVT prophylaxis: Heparin 5000 units twice daily Dispo: Pending improving in hypoxic respiratory failure, back to SNF after Time spent on this encounter was 37 minutes which included 20 minutes of counseling and care coordination. I discussed with the nurse at bedside. Time of note may not reflect time patient was seen. Ronan Chan M.D. Feb 10, 2020 17:18
--- NOTE | 2020-02-10 19:20 | Nephrology Progress Note ---
Assessment/Plan Plan #Hypoxemic resp failure, #metabolic alkalosis #COVID infection #possible pneumonia #hypernatremia - [id number] - switch to 1/2 NS - antibiotics per ID - on lovenox - consider remdesevir - appreciate pulm recs - avoid nephrotoxins - monitor lytes time spent 35 min Subjective ROS Limited/Unobtainable: No Constitutional: Reports: weakness Subjective sodium uptrending D5W 500cc today Objective Objective Last 24 Hour Vital Signs Date Time Temp Pulse Resp B/P (MAP) Pulse Ox O2 Delivery O2 Flow Rate FiO2 02/10/20 16:00 73 02/10/20 16:00 97.9 76 18 147/60 (89) 94 02/10/20 12:00 98.0 71 20 150/57 (88) 93 02/10/20 12:00 69 02/10/20 09:00 Nasal Cannula 6.0 02/10/20 08:00 98.2 65 20 156/62 (93) 93 02/10/20 08:00 72 02/10/20 04:00 98.4 90 22 148/57 (87) 92 02/10/20 04:00 73 02/10/20 00:00 74 02/10/20 00:00 98.5 83 24 162/66 (98) 91 02/09/20 21:00 Nasal Cannula 6.0 02/09/20 20:00 98.3 79 26 157/45 (82) 92 02/09/20 20:00 81 Intake and Output 02/09/20 02/10/20 19:00 07:00 Intake Total 400 ml Output Total 400 ml Balance 400 ml -400 ml Intake Oral 400 ml Output Urine Total 400 ml # Voids 2 1 Laboratory Tests 02/10/20 04:50: White Blood Count 7.8, Red Blood Count 4.45, Hemoglobin 13.4, Hematocrit 37.9, Mean Corpuscular Volume 85, Mean Corpuscular Hemoglobin 30.0, Mean Corpuscular Hemoglobin Concent 35.3, Red Cell Distribution Width 14.4, Platelet Count 206, Mean Platelet Volume 8.7, Neutrophils (%) (Auto) , Lymphocytes (%) (Auto) , Monocytes (%) (Auto) , Eosinophils (%) (Auto) , Basophils (%) (Auto) , Differential Total Cells Counted 100, Neutrophils % (Manual) 91H, Lymphocytes % (Manual) 6L, Monocytes % (Manual) 2, Eosinophils % (Manual) 0, Basophils % (Manual) 0, Band Neutrophils 1, Platelet Estimate Adequate, Platelet Morphology Normal, Red Blood Cell Morphology Normal, Sodium Level 147H, Potassium Level 3.5, Chloride Level 112H, Carbon Dioxide Level 29, Anion Gap 6, Blood Urea Nitrogen 26H, Creatinine 1.0, Estimat Glomerular Filtration Rate 52.5, Glucose Level 361H, Calcium Level 8.0L, Total Bilirubin 0.7, Direct Bilirubin 0.2, Aspartate Amino Transf (AST/SGOT) 53H, Alanine Aminotransferase (ALT/SGPT) 62, Alkaline Phosphatase 82, Total Protein 6.1L, Albumin 2.0L, Globulin 4.1, Albumin/Globulin Ratio 0.5L Height (Feet): 5 Height (Inches): 5.00 Weight (Pounds): 149 Annika Cramer M.D. Feb 10, 2020 19:20
[2020-02-10 20:00] VITALS: BP 156/84
--- NOTE | 2020-02-10 20:33 | Pulmonology Progress Note ---
Subjective ROS Limited/Unobtainable: No Interval Events: None new Constitutional: Reports: fatigue; Denies: fever HEENT: Repors: no symptoms Respiratory: Reports: no symptoms Cardiovascular: Reports: no symptoms Gastrointestinal/Abdominal: Denies: nausea, vomiting, diarrhea Psychiatric: Denies: depression Skin: Denies: rash Musculoskeletal: Denies: pain Allergies: Coded Allergies: No Known Allergies (Unverified , 02/07/20) Objective Last 24 Hour Vital Signs Date Time Temp Pulse Resp B/P (MAP) Pulse Ox O2 Delivery O2 Flow Rate FiO2 02/10/20 16:00 73 02/10/20 16:00 97.9 76 18 147/60 (89) 94 02/10/20 12:00 98.0 71 20 150/57 (88) 93 02/10/20 12:00 69 02/10/20 09:00 Nasal Cannula 6.0 02/10/20 08:00 98.2 65 20 156/62 (93) 93 02/10/20 08:00 72 02/10/20 04:00 98.4 90 22 148/57 (87) 92 02/10/20 04:00 73 02/10/20 00:00 74 02/10/20 00:00 98.5 83 24 162/66 (98) 91 02/09/20 21:00 Nasal Cannula 6.0 Intake and Output 02/09/20 02/10/20 19:00 07:00 Intake Total 400 ml Output Total 400 ml Balance 400 ml -400 ml Intake Oral 400 ml Output Urine Total 400 ml # Voids 2 1 General Appearance: no acute distress HEENT: normocephalic Respiratory: decreased breath sounds Cardiovascular: normal peripheral pulses Abdomen: normal bowel sounds Laboratory Tests 02/10/20 04:50: White Blood Count 7.8, Red Blood Count 4.45, Hemoglobin 13.4, Hematocrit 37.9, Mean Corpuscular Volume 85, Mean Corpuscular Hemoglobin 30.0, Mean Corpuscular Hemoglobin Concent 35.3, Red Cell Distribution Width 14.4, Platelet Count 206, Mean Platelet Volume 8.7, Neutrophils (%) (Auto) , Lymphocytes (%) (Auto) , Monocytes (%) (Auto) , Eosinophils (%) (Auto) , Basophils (%) (Auto) , Differential Total Cells Counted 100, Neutrophils % (Manual) 91H, Lymphocytes % (Manual) 6L, Monocytes % (Manual) 2, Eosinophils % (Manual) 0, Basophils % (Manual) 0, Band Neutrophils 1, Platelet Estimate Adequate, Platelet Morphology Normal, Red Blood Cell Morphology Normal, Sodium Level 147H, Potassium Level 3.5, Chloride Level 112H, Carbon Dioxide Level 29, Anion Gap 6, Blood Urea Nitrogen 26H, Creatinine 1.0, Estimat Glomerular Filtration Rate 52.5, Glucose Level 361H, Calcium Level 8.0L, Total Bilirubin 0.7, Direct Bilirubin 0.2, Aspartate Amino Transf (AST/SGOT) 53H, Alanine Aminotransferase (ALT/SGPT) 62, Alkaline Phosphatase 82, Total Protein 6.1L, Albumin 2.0L, Globulin 4.1, Albumin/Globulin Ratio 0.5L Current Medications Medications (Trade) Dose Ordered Sig/Tawanda Route PRN Reason Start Time Stop Time Status Last Admin Dose Admin Acetaminophen (Tylenol) 650 mg Q4H PRN ORAL Temp >100.5 02/07/20 19:09 03/08/20 19:08 Ascorbic Acid (Vitamin C) 250 mg DAILY ORAL 02/10/20 09:00 03/11/20 08:59 02/10/20 08:46 Dexamethasone Sodium Phosphate (Decadron 4mg/ml vial) 6 mg DAILY IVP 02/11/20 09:00 02/17/20 09:01 Dextrose 1,000 ml @ 200 mls/hr Q5H IV 02/10/20 16:00 02/10/20 21:00 02/10/20 17:01 Dextrose (Dextrose 50%) 25 ml Q30M PRN IV Hypoglycemia 02/07/20 19:10 05/07/20 19:09 Dextrose (Dextrose 50%) 50 ml Q30M PRN IV Hypoglycemia 02/07/20 19:09 05/07/20 19:08 Heparin Sodium (Porcine) (Heparin 5000 units/ml) 5,000 units EVERY 12 HOURS SUBQ 02/08/20 09:00 03/24/20 08:59 02/10/20 08:49 Magnesium Hydroxide (Mom) 30 ml QHS PRN ORAL Constipation 02/07/20 18:45 03/08/20 18:44 Multivitamins (Multivitamins) 1 tab DAILY ORAL 02/10/20 09:00 03/11/20 08:59 02/10/20 08:46 Pantoprazole (Protonix) 40 mg DAILY ORAL 02/08/20 09:00 03/09/20 08:59 02/10/20 08:47 Piperacillin Sod/ Tazobactam Sod 3.375 gm/Dextrose 100 ml @ 25 mls/hr EVERY 8 HOURS IVPB 02/10/20 22:00 02/15/20 21:59 Potassium Chloride (K-Dur) 40 meq ONCE ORAL 02/10/20 20:30 02/10/20 21:30 Remdesivir 100 mg/ Sodium Chloride 250 ml @ 250 mls/hr Q24H IV 02/09/20 09:00 02/12/20 09:59 02/10/20 09:43 Sodium Chloride 1,000 ml @ 75 mls/hr [id number] IV 02/08/20 13:30 03/09/20 13:29 02/10/20 05:26 Zinc Sulfate (Zinc Sulfate) 220 mg DAILY ORAL 02/10/20 09:00 02/20/20 08:59 02/10/20 08:47 Assessment/Plan Assessment/Plan IMPRESSION: 1. COVID-19 pneumonia. 2. Markedly elevated inflammatory markers. 3. detention resident. DISCUSSION: Contnue Decadron and Lovenox. Defer to ID for use of remdesivir. Continue oxygen; now on 6L/min I will follow carefully. Robert Garcia Omar Syed MD Feb 10, 2020 20:32
[2020-02-11] VITALS: BP 113/85
[2020-02-11 04:00] VITALS: BP 165/65
[2020-02-11 08:00] VITALS: BP 154/72
[2020-02-11 08:08] LABS: BASOPHILS % (AUTO) 0.4 % (0.0-2.0); EOSINOPHILS % (AUTO) 0.1 % (0.0-3.0); HEMOGLOBIN 14.8 G/DL (12.0-16.0); LYMPHOCYTES % (AUTO) 13.1 % (20.0-45.0); MEAN CORPUSCULAR VOLUME 84 FL (80-99); MONOCYTES % (AUTO) 4.4 % (1.0-10.0); PLATELET COUNT 196 K/UL (150-450); RED BLOOD COUNT 5.12 M/UL (4.20-5.40); RED CELL DISTRIBUTION WIDTH 14.2 % (11.6-14.8)
[2020-02-11 08:21] LABS: ALANINE AMINOTRANSFERASE 77 U/L (12-78); ALBUMIN 2.1 G/DL (3.4-5.0); ALBUMIN/GLOBULIN RATIO 0.5 (1.0-2.7); ALKALINE PHOSPHATASE 87 U/L (46-116); ANION GAP 5 mmol/L (5-15); ASPARTATE AMINO TRANSFERASE 70 U/L (15-37); BILIRUBIN,DIRECT 0.2 MG/DL (0.0-0.3); BILIRUBIN,TOTAL 0.9 MG/DL (0.2-1.0); BLOOD UREA NITROGEN 14 mg/dL (7-18); CALCIUM 8.2 MG/DL (8.5-10.1); CARBON DIOXIDE 31 MMOL/L (21-32); CHLORIDE 101 MMOL/L (98-107); CREATININE 0.8 MG/DL (0.55-1.30); POTASSIUM 3.3 MMOL/L (3.5-5.1); SODIUM 137 MMOL/L (136-145)
[2020-02-11] MEDS: Maintenance Dose:Remdesivir 100mg/NS 230ml x 4 Doses IV SCH ×2 (09:17)
[2020-02-11] MEDS: Zinc Sulfate 220mg ORAL SCH (09:18)
[2020-02-11] MEDS: Ascorbic Acid 500mg tab ORAL SCH (09:19)
[2020-02-11] MEDS: Heparin 5000 units/ml inj SUBQ SCH ×2 (09:20→21:36)
[2020-02-11 12:00] VITALS: BP 148/70
--- NOTE | 2020-02-11 12:20 | Nephrology Progress Note ---
Assessment/Plan Plan #Hypoxemic resp failure, #metabolic alkalosis #COVID infection #possible pneumonia #hypernatremia - [id number] - switch to 1/2 NS - antibiotics per ID - on lovenox - consider remdesevir - appreciate pulm recs - avoid nephrotoxins - monitor lytes time spent 35 min Subjective ROS Limited/Unobtainable: No Constitutional: Reports: weakness HEENT: Denies: no symptoms, eye pain, blurred vision, tearing, double vision, ear pain, ear discharge, nose pain, nose congestion, throat pain, throat swelling, mouth pain, mouth swelling, other Genitourinary: Denies: no symptoms, burning, discharge, frequency, flank pain, hematuria, incontinence, pain, urgency, other Neurologic/Psychiatric: Denies: no symptoms, anxiety, depressed, emotional problems, headache, numbness, paresthesia, pre-existing deficit, seizure, tingling, tremors, weakness, other Subjective sodium uptrending D5W 500cc today Objective Objective Last 24 Hour Vital Signs Date Time Temp Pulse Resp B/P (MAP) Pulse Ox O2 Delivery O2 Flow Rate FiO2 02/11/20 08:00 98.0 56 22 154/72 (99) 96 02/11/20 04:00 61 02/11/20 04:00 97.5 61 22 165/65 (98) 97 02/11/20 00:00 98.3 62 24 113/85 (94) 94 02/11/20 00:00 60 02/10/20 21:00 Nasal Cannula 6.0 02/10/20 20:00 98.3 70 24 156/84 (108) 94 02/10/20 20:00 76 02/10/20 16:00 73 02/10/20 16:00 97.9 76 18 147/60 (89) 94 Intake and Output 02/10/20 02/11/20 19:00 07:00 Output Total 1500 ml Balance -1500 ml Output Urine Total 1500 ml # Voids 2 Laboratory Tests 02/11/20 06:45: White Blood Count 7.0, Red Blood Count 5.12, Hemoglobin 14.8, Hematocrit 43.0, Mean Corpuscular Volume 84, Mean Corpuscular Hemoglobin 29.0, Mean Corpuscular Hemoglobin Concent 34.5, Red Cell Distribution Width 14.2, Platelet Count 196, Mean Platelet Volume 9.5, Neutrophils (%) (Auto) 82.0H, Lymphocytes (%) (Auto) 13.1L, Monocytes (%) (Auto) 4.4, Eosinophils (%) (Auto) 0.1, Basophils (%) (Auto) 0.4, Sodium Level 137, Potassium Level 3.3L, Chloride Level 101, Carbon Dioxide Level 31, Anion Gap 5, Blood Urea Nitrogen 14, Creatinine 0.8, Estimat Glomerular Filtration Rate > 60, Glucose Level 356H, Calcium Level 8.2L, Total Bilirubin 0.9, Direct Bilirubin 0.2, Aspartate Amino Transf (AST/SGOT) 70H, Alanine Aminotransferase (ALT/SGPT) 77, Alkaline Phosphatase 87, Total Protein 6.2L, Albumin 2.1L, Globulin 4.1, Albumin/Globulin Ratio 0.5L Height (Feet): 5 Height (Inches): 5.00 Weight (Pounds): 149 Annika Cramer M.D. Feb 11, 2020 12:19
--- NOTE | 2020-02-11 12:30 | General Progress Note ---
Subjective Date patient seen: Feb 11, 2020 ROS Limited/Unobtainable: No Allergies: Coded Allergies: No Known Allergies (Unverified , 02/07/20) Subjective Constitutional: Denies: chills, fever Eye: Denies: eye pain, blurred vision, nose congestion ENT: Denies: ear discharge, nose congestion, throat swelling Respiratory: Denies shortness of breath; Denies: cough Cardiovascular: Denies: chest pain, palpitations, syncope Gastrointestinal: Denies: abdominal pain, constipation, nausea, vomiting, melena, hematemesis Genitourinary: Denies: dysuria, frequency Musculoskeletal: Denies: muscle pain Skin: Denies: rash, dryness Psychiatric: Denies: anxiety, hallucinations Neurological: Denies: headache, seizure Endocrine: Denies: flushing, intolerance to temperature Hematologic/Lymphatic: Denies: easy bleeding Interval events: no acute events overnight Today, patient reports feeling well today. She was confused regarding her location, thought she was in [place], so informed her and reoriented her to location and date. She denies SOB, chest pain, fever, chills. Objective Last 24 Hour Vital Signs Date Time Temp Pulse Resp B/P (MAP) Pulse Ox O2 Delivery O2 Flow Rate FiO2 02/11/20 08:00 98.0 56 22 154/72 (99) 96 02/11/20 04:00 61 02/11/20 04:00 97.5 61 22 165/65 (98) 97 02/11/20 00:00 98.3 62 24 113/85 (94) 94 02/11/20 00:00 60 02/10/20 21:00 Nasal Cannula 6.0 02/10/20 20:00 98.3 70 24 156/84 (108) 94 02/10/20 20:00 76 02/10/20 16:00 73 02/10/20 16:00 97.9 76 18 147/60 (89) 94 Intake and Output 02/10/20 02/11/20 19:00 07:00 Output Total 1500 ml Balance -1500 ml Output Urine Total 1500 ml # Voids 2 Laboratory Tests 02/11/20 06:45: White Blood Count 7.0, Red Blood Count 5.12, Hemoglobin 14.8, Hematocrit 43.0, Mean Corpuscular Volume 84, Mean Corpuscular Hemoglobin 29.0, Mean Corpuscular Hemoglobin Concent 34.5, Red Cell Distribution Width 14.2, Platelet Count 196, Mean Platelet Volume 9.5, Neutrophils (%) (Auto) 82.0H, Lymphocytes (%) (Auto) 13.1L, Monocytes (%) (Auto) 4.4, Eosinophils (%) (Auto) 0.1, Basophils (%) (Auto) 0.4, Sodium Level 137, Potassium Level 3.3L, Chloride Level 101, Carbon Dioxide Level 31, Anion Gap 5, Blood Urea Nitrogen 14, Creatinine 0.8, Estimat Glomerular Filtration Rate > 60, Glucose Level 356H, Calcium Level 8.2L, Total Bilirubin 0.9, Direct Bilirubin 0.2, Aspartate Amino Transf (AST/SGOT) 70H, Alanine Aminotransferase (ALT/SGPT) 77, Alkaline Phosphatase 87, Total Protein 6.2L, Albumin 2.1L, Globulin 4.1, Albumin/Globulin Ratio 0.5L Height (Feet): 5 Height (Inches): 5.00 Weight (Pounds): 149 Objective General Appearance: WD/WN, no apparent distress, alert, laying in bed with nasal cannula HEENT: normocephalic, atraumatic, anicteric, mucous membranes moist, supple Neck: non-tender, normal alignment, normal inspection Respiratory/Chest: chest wall non-tender, normal breath sounds, no respiratory distress, no accessory muscle use Cardiovascular/Chest: normal rate, regular rhythm Abdomen: non tender, soft, no mass Extremities: normal range of motion, non-tender, no edema, arms in soft restraints Skin Exam: normal pigmentation, warm/dry 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 #Acute hypoxemic respiratory failure - Stable oxygen requirements. CXR showing pleural effusion. Likely 2/2 COVID pneumonia vs bacterial pneumonia #Metabolic alkalosis #Elevated inflammatory markers - D-dimer, ferritin, CRP #Hypothyroidism #Hypoalbuminemia P: - stable on 6 L NC oxygen, attempt to decrease today but goal O2 sat>94% - cardiac monitoring - IV abx Zosyn per ID - vancomycin discontinued per ID - dexamethasone, remdesivir - holding levothyroxine for now - ID consult, Dr. Conte, recs appreciated - Pulm consult, rene Gonsalez appreciated - Nephro consult, rene Mccullough appreciated Code: Full GI: Protonix DVT prophylaxis: Heparin 5000 units twice daily Dispo: Pending improving in hypoxic respiratory failure, back to SNF after Time spent on this encounter was 35 minutes which included 19 minutes of counseling and care coordination. I discussed with the nurse at bedside. Time of note may not reflect time patient was seen. Ronan Chan M.D. Feb 11, 2020 12:30
--- NOTE | 2020-02-11 14:37 | Surgery Progress Note ---
Surgery Progress Note Subjective Symptoms: improved, tolerating diet, passing flatus Objective Last 24 Hour Vital Signs Date Time Temp Pulse Resp B/P (MAP) Pulse Ox O2 Delivery O2 Flow Rate FiO2 02/11/20 12:00 97.9 56 20 148/70 (96) 95 02/11/20 09:00 Nasal Cannula 6.0 02/11/20 08:00 59 02/11/20 08:00 98.0 56 22 154/72 (99) 96 02/11/20 04:00 61 02/11/20 04:00 97.5 61 22 165/65 (98) 97 02/11/20 00:00 98.3 62 24 113/85 (94) 94 02/11/20 00:00 60 02/10/20 21:00 Nasal Cannula 6.0 02/10/20 20:00 98.3 70 24 156/84 (108) 94 02/10/20 20:00 76 02/10/20 16:00 73 02/10/20 16:00 97.9 76 18 147/60 (89) 94 I&O Intake and Output 02/10/20 02/11/20 19:00 07:00 Output Total 1500 ml Balance -1500 ml Output Urine Total 1500 ml # Voids 2 Cardiovascular: RSR Respiratory: clear, decreased breath sounds Abdomen: soft, non-tender, present bowel sounds Extremities: no edema, no tenderness, no cyanosis Laboratory Tests Test 02/11/20 06:45 White Blood Count 7.0 K/UL (4.8-10.8) Red Blood Count 5.12 M/UL (4.20-5.40) Hemoglobin 14.8 G/DL (12.0-16.0) Hematocrit 43.0 % (37.0-47.0) Mean Corpuscular Volume 84 FL (80-99) Mean Corpuscular Hemoglobin 29.0 PG (27.0-31.0) Mean Corpuscular Hemoglobin Concent 34.5 G/DL (32.0-36.0) Red Cell Distribution Width 14.2 % (11.6-14.8) Platelet Count 196 K/UL (150-450) Mean Platelet Volume 9.5 FL (6.5-10.1) Neutrophils (%) (Auto) 82.0 % (45.0-75.0) H Lymphocytes (%) (Auto) 13.1 % (20.0-45.0) L Monocytes (%) (Auto) 4.4 % (1.0-10.0) Eosinophils (%) (Auto) 0.1 % (0.0-3.0) Basophils (%) (Auto) 0.4 % (0.0-2.0) Sodium Level 137 MMOL/L (136-145) Potassium Level 3.3 MMOL/L (3.5-5.1) L Chloride Level 101 MMOL/L (98-107) Carbon Dioxide Level 31 MMOL/L (21-32) Anion Gap 5 mmol/L (5-15) Blood Urea Nitrogen 14 mg/dL (7-18) Creatinine 0.8 MG/DL (0.55-1.30) Estimat Glomerular Filtration Rate > 60 mL/min (>60) Glucose Level 356 MG/DL (74-106) H Calcium Level 8.2 MG/DL (8.5-10.1) L Total Bilirubin 0.9 MG/DL (0.2-1.0) Direct Bilirubin 0.2 MG/DL (0.0-0.3) Aspartate Amino Transf (AST/SGOT) 70 U/L (15-37) H Alanine Aminotransferase (ALT/SGPT) 77 U/L (12-78) Alkaline Phosphatase 87 U/L (46-116) Total Protein 6.2 G/DL (6.4-8.2) L Albumin 2.1 G/DL (3.4-5.0) L Globulin 4.1 g/dL Albumin/Globulin Ratio 0.5 (1.0-2.7) L Plan Problems: (1) Respiratory distress Assessment & Plan: Left pleural effusion and mild interstitial congestion are unchanged. Right perihilar atelectasis is unchanged. respiratory care as per pulm cont O2 improved d/c planning (2) Sacral decubitus ulcer Assessment & Plan: Patient identified admission to have a sacral cubitus ulcer. 3 cm x 2 cm x 2 mm deep stage III/stage II sacral decubitus ulcer identified on the left. No active drainage no signs of active infection no tunneling noted. Wound otherwise clean. Likely from shear forces. Wash wound daily with normal saline apply Thera honey gauze followed by Optifoam dressing. Turn every 2 hours. Offload pressure with pillows. Heel protectors. Nutritional optimization. Will follow with recommendations. Thank you for letting participate patient's care DAILY ESTIMATED NEEDS: Needs based on wound/ 67kg 25-30 kcals/kg total kcals 1.25-1.5 g protein/kg 83-100 g total protein 25-30 mL/kg total fluid mLs NUTRITION DIAGNOSIS: Increased kcal/prot needs R/T wound healing as evidenced by pt admitted w/ open lt buttock wound per photo, pending evaluation, currently refusing meals, pt is COVID-19 positive. CURRENT DIET:LOW NA PO DIET RECOMMENDATIONS: Liberalized regular diet w/ poor PO ADDITIONAL RECOMMENDATIONS: * Glucerna TID w/ meals * BUSINESS PROJECT ANALYST eval for appropriate texture * Monitor BGs, need for NISS w/ Decadron (BGs 200's) * A1C for eval of glycemic control (BGs 200's) * Consider adjusting IVF: Na and BUn trend up * Wound healing: add MVI x 1, Vit C 250mg QD, ZnSO4 220mg x 10 days Jose BID as tolerated (3) COVID-19 Emilio Rehman Feb 11, 2020 14:36
[2020-02-11 15:50] VITALS: BP 152/75
--- NOTE | 2020-02-11 18:15 | Pulmonology Progress Note ---
Subjective ROS Limited/Unobtainable: No Interval Events: None new Constitutional: Reports: fatigue; Denies: fever HEENT: Repors: no symptoms Respiratory: Reports: no symptoms Cardiovascular: Reports: no symptoms Gastrointestinal/Abdominal: Denies: nausea, vomiting, diarrhea Psychiatric: Denies: depression Skin: Denies: rash Musculoskeletal: Denies: pain Allergies: Coded Allergies: No Known Allergies (Unverified , 02/07/20) Objective Last 24 Hour Vital Signs Date Time Temp Pulse Resp B/P (MAP) Pulse Ox O2 Delivery O2 Flow Rate FiO2 02/11/20 16:00 66 02/11/20 15:50 98.1 73 21 152/75 (100) 96 02/11/20 12:00 97.9 56 20 148/70 (96) 95 02/11/20 12:00 66 02/11/20 09:00 Nasal Cannula 6.0 02/11/20 08:00 59 02/11/20 08:00 98.0 56 22 154/72 (99) 96 02/11/20 04:00 61 02/11/20 04:00 97.5 61 22 165/65 (98) 97 02/11/20 00:00 98.3 62 24 113/85 (94) 94 02/11/20 00:00 60 02/10/20 21:00 Nasal Cannula 6.0 02/10/20 20:00 98.3 70 24 156/84 (108) 94 02/10/20 20:00 76 Intake and Output 02/10/20 02/11/20 19:00 07:00 Output Total 1500 ml Balance -1500 ml Output Urine Total 1500 ml # Voids 2 General Appearance: no acute distress HEENT: normocephalic Respiratory: decreased breath sounds Cardiovascular: normal peripheral pulses Abdomen: normal bowel sounds Laboratory Tests 02/11/20 06:45: White Blood Count 7.0, Red Blood Count 5.12, Hemoglobin 14.8, Hematocrit 43.0, Mean Corpuscular Volume 84, Mean Corpuscular Hemoglobin 29.0, Mean Corpuscular Hemoglobin Concent 34.5, Red Cell Distribution Width 14.2, Platelet Count 196, Mean Platelet Volume 9.5, Neutrophils (%) (Auto) 82.0H, Lymphocytes (%) (Auto) 13.1L, Monocytes (%) (Auto) 4.4, Eosinophils (%) (Auto) 0.1, Basophils (%) (Auto) 0.4, Sodium Level 137, Potassium Level 3.3L, Chloride Level 101, Carbon Dioxide Level 31, Anion Gap 5, Blood Urea Nitrogen 14, Creatinine 0.8, Estimat Glomerular Filtration Rate > 60, Glucose Level 356H, Calcium Level 8.2L, Total Bilirubin 0.9, Direct Bilirubin 0.2, Aspartate Amino Transf (AST/SGOT) 70H, Alanine Aminotransferase (ALT/SGPT) 77, Alkaline Phosphatase 87, Total Protein 6.2L, Albumin 2.1L, Globulin 4.1, Albumin/Globulin Ratio 0.5L Current Medications Medications (Trade) Dose Ordered Sig/Tawanda Route PRN Reason Start Time Stop Time Status Last Admin Dose Admin Acetaminophen (Tylenol) 650 mg Q4H PRN ORAL Temp >100.5 02/07/20 19:09 03/08/20 19:08 Ascorbic Acid (Vitamin C) 250 mg DAILY ORAL 02/10/20 09:00 03/11/20 08:59 02/11/20 09:19 Dexamethasone Sodium Phosphate (Decadron 4mg/ml vial) 6 mg DAILY IVP 02/11/20 09:00 02/17/20 09:01 02/11/20 09:18 Dextrose (Dextrose 50%) 25 ml Q30M PRN IV Hypoglycemia 02/07/20 19:10 05/07/20 19:09 Dextrose (Dextrose 50%) 50 ml Q30M PRN IV Hypoglycemia 02/07/20 19:09 05/07/20 19:08 Heparin Sodium (Porcine) (Heparin 5000 units/ml) 5,000 units EVERY 12 HOURS SUBQ 02/08/20 09:00 03/24/20 08:59 02/11/20 09:20 Magnesium Hydroxide (Mom) 30 ml QHS PRN ORAL Constipation 02/07/20 18:45 03/08/20 18:44 Multivitamins (Multivitamins) 1 tab DAILY ORAL 02/10/20 09:00 03/11/20 08:59 02/11/20 09:19 Pantoprazole (Protonix) 40 mg DAILY ORAL 02/08/20 09:00 03/09/20 08:59 02/11/20 09:19 Piperacillin Sod/ Tazobactam Sod 3.375 gm/Dextrose 100 ml @ 25 mls/hr EVERY 8 HOURS IVPB 02/10/20 22:00 02/15/20 21:59 02/11/20 13:58 Remdesivir 100 mg/ Sodium Chloride 250 ml @ 250 mls/hr Q24H IV 02/09/20 09:00 02/12/20 09:59 02/11/20 09:17 Sodium Chloride 1,000 ml @ 75 mls/hr [id number] IV 02/08/20 13:30 03/09/20 13:29 02/11/20 09:27 Zinc Sulfate (Zinc Sulfate) 220 mg DAILY ORAL 02/10/20 09:00 02/20/20 08:59 02/11/20 09:18 Assessment/Plan Assessment/Plan IMPRESSION: 1. COVID-19 pneumonia. 2. Markedly elevated inflammatory markers. 3. [facility] resident. DISCUSSION: Contnue Decadron and Lovenox. Defer to ID for use of remdesivir. Continue oxygen; now on 6L/min I will follow carefully. Robert Garcia Omar Syed MD Feb 11, 2020 18:15
[2020-02-11 20:00] VITALS: BP 150/84
[2020-02-12] VITALS: BP 142/82
[2020-02-12 04:00] VITALS: BP 134/58
[2020-02-12 04:05] LABS: BASOPHILS % (AUTO) 0.7 % (0.0-2.0); EOSINOPHILS % (AUTO) 0.1 % (0.0-3.0); HEMATOCRIT 41.3 % (37.0-47.0); HEMOGLOBIN 14.1 G/DL (12.0-16.0); LYMPHOCYTES % (AUTO) 13.5 % (20.0-45.0); MEAN CORPUSCULAR VOLUME 86 FL (80-99); MONOCYTES % (AUTO) 3.7 % (1.0-10.0); PLATELET COUNT 185 K/UL (150-450); RED BLOOD COUNT 4.82 M/UL (4.20-5.40); RED CELL DISTRIBUTION WIDTH 13.1 % (11.6-14.8); WHITE BLOOD COUNT 5.8 K/UL (4.8-10.8)
[2020-02-12 04:18] LABS: PHOSPHORUS 2.9 MG/DL (2.5-4.9)
[2020-02-12 04:22] LABS: ALANINE AMINOTRANSFERASE 85 U/L (12-78); ALBUMIN 1.9 G/DL (3.4-5.0); ALBUMIN/GLOBULIN RATIO 0.5 (1.0-2.7); ALKALINE PHOSPHATASE 79 U/L (46-116); ANION GAP 5 mmol/L (5-15); ASPARTATE AMINO TRANSFERASE 60 U/L (15-37); BILIRUBIN,DIRECT 0.2 MG/DL (0.0-0.3); BILIRUBIN,TOTAL 0.8 MG/DL (0.2-1.0); BLOOD UREA NITROGEN 19 mg/dL (7-18); CALCIUM 8.2 MG/DL (8.5-10.1); CARBON DIOXIDE 29 MMOL/L (21-32); CHLORIDE 102 MMOL/L (98-107); CREATININE 0.8 MG/DL (0.55-1.30); POTASSIUM 4.2 MMOL/L (3.5-5.1); SODIUM 136 MMOL/L (136-145)
[2020-02-12 08:00] VITALS: BP 140/72
[2020-02-12] MEDS: Heparin 5000 units/ml inj SUBQ SCH ×2 (09:43→23:08)
[2020-02-12] MEDS: Zinc Sulfate 220mg ORAL SCH (09:43)
[2020-02-12] MEDS: Ascorbic Acid 500mg tab ORAL SCH (09:44)
[2020-02-12] MEDS: Maintenance Dose:Remdesivir 100mg/NS 230ml x 4 Doses IV SCH ×2 (09:45)
[2020-02-12 12:00] VITALS: BP 150/75
--- NOTE | 2020-02-12 12:58 | Surgery Progress Note ---
Surgery Progress Note Subjective Additional Comments no acute events comfortable stable labs noted no n/v Objective Last 24 Hour Vital Signs Date Time Temp Pulse Resp B/P (MAP) Pulse Ox O2 Delivery O2 Flow Rate FiO2 02/12/20 08:00 97.4 65 20 140/72 (94) 91 02/12/20 04:00 60 02/12/20 04:00 97.7 62 22 134/58 (83) 95 02/12/20 00:00 98.1 66 20 142/82 (102) 95 02/11/20 21:00 Nasal Cannula 6.0 02/11/20 20:00 95.6 71 22 150/84 (106) 94 02/11/20 20:00 70 02/11/20 16:00 66 02/11/20 15:50 98.1 73 21 152/75 (100) 96 I&O Intake and Output 02/11/20 02/12/20 19:00 07:00 Intake Total 100 ml Output Total 200 ml Balance -100 ml Intake Oral 100 ml Output Urine Total 200 ml # Voids 2 Cardiovascular: RSR Respiratory: decreased breath sounds Abdomen: soft, non-tender, present bowel sounds, non-distended Extremities: no tenderness, no cyanosis Laboratory Tests Test 02/12/20 04:00 02/12/20 12:04 White Blood Count 5.8 K/UL (4.8-10.8) Red Blood Count 4.82 M/UL (4.20-5.40) Hemoglobin 14.1 G/DL (12.0-16.0) Hematocrit 41.3 % (37.0-47.0) Mean Corpuscular Volume 86 FL (80-99) Mean Corpuscular Hemoglobin 29.3 PG (27.0-31.0) Mean Corpuscular Hemoglobin Concent 34.2 G/DL (32.0-36.0) Red Cell Distribution Width 13.1 % (11.6-14.8) Platelet Count 185 K/UL (150-450) Mean Platelet Volume 8.4 FL (6.5-10.1) Neutrophils (%) (Auto) 82.0 % (45.0-75.0) H Lymphocytes (%) (Auto) 13.5 % (20.0-45.0) L Monocytes (%) (Auto) 3.7 % (1.0-10.0) Eosinophils (%) (Auto) 0.1 % (0.0-3.0) Basophils (%) (Auto) 0.7 % (0.0-2.0) Sodium Level 136 MMOL/L (136-145) Potassium Level 4.2 MMOL/L (3.5-5.1) Chloride Level 102 MMOL/L (98-107) Carbon Dioxide Level 29 MMOL/L (21-32) Anion Gap 5 mmol/L (5-15) Blood Urea Nitrogen 19 mg/dL (7-18) H Creatinine 0.8 MG/DL (0.55-1.30) Estimat Glomerular Filtration Rate > 60 mL/min (>60) Glucose Level 343 MG/DL (74-106) H Calcium Level 8.2 MG/DL (8.5-10.1) L Phosphorus Level 2.9 MG/DL (2.5-4.9) Magnesium Level 2.2 MG/DL (1.8-2.4) Total Bilirubin 0.8 MG/DL (0.2-1.0) Direct Bilirubin 0.2 MG/DL (0.0-0.3) Aspartate Amino Transf (AST/SGOT) 60 U/L (15-37) H Alanine Aminotransferase (ALT/SGPT) 85 U/L (12-78) H Alkaline Phosphatase 79 U/L (46-116) Total Protein 5.7 G/DL (6.4-8.2) L Albumin 1.9 G/DL (3.4-5.0) L Globulin 3.8 g/dL Albumin/Globulin Ratio 0.5 (1.0-2.7) L POC Whole Blood Glucose 305 MG/DL (74-106) H Plan Problems: (1) Respiratory distress Assessment & Plan: Left pleural effusion and mild interstitial congestion are unchanged. Right perihilar atelectasis is unchanged. respiratory care as per pulm cont O2 improved d/c planning (2) Sacral decubitus ulcer Assessment & Plan: Patient identified admission to have a sacral cubitus ulcer. 3 cm x 2 cm x 2 mm deep stage III/stage II sacral decubitus ulcer identified on the left. No active drainage no signs of active infection no tunneling noted. Wound otherwise clean. Likely from shear forces. Wash wound daily with normal saline apply Thera honey gauze followed by Optifoam dressing. Turn every 2 hours. Offload pressure with pillows. Heel protectors. Nutritional optimization. Will follow with recommendations. Thank you for letting participate patient's care DAILY ESTIMATED NEEDS: Needs based on wound/ 67kg 25-30 kcals/kg total kcals 1.25-1.5 g protein/kg 83-100 g total protein 25-30 mL/kg total fluid mLs NUTRITION DIAGNOSIS: Increased kcal/prot needs R/T wound healing as evidenced by pt admitted w/ open lt buttock wound per photo, pending evaluation, currently refusing meals, pt is COVID-19 positive. CURRENT DIET:LOW NA PO DIET RECOMMENDATIONS: Liberalized regular diet w/ poor PO ADDITIONAL RECOMMENDATIONS: * Glucerna TID w/ meals * [employer] eval for appropriate texture * Monitor BGs, need for NISS w/ Decadron (BGs 200's) * A1C for eval of glycemic control (BGs 200's) * Consider adjusting IVF: Na and BUn trend up * Wound healing: add MVI x 1, Vit C 250mg QD, ZnSO4 220mg x 10 days Jose BID as tolerated (3) COVID-19 Assessment & Plan: DAILY ESTIMATED NEEDS: Needs based on wound/ 67kg 25-30 kcals/kg total kcals 1.25-1.5 g protein/kg 83-100 g total protein 25-30 mL/kg total fluid mLs NUTRITION DIAGNOSIS: Increased kcal/prot needs R/T wound healing as evidenced by pt admitted w/ stage 2-3 sacral wound, currently refusing most meals, pt is COVID-19 positive. CURRENT DIET:LOW NA PO DIET RECOMMENDATIONS: Liberalized regular diet w/ poor PO(Texture per [employer]) + Glucerna TID w/ meals ADDITIONAL RECOMMENDATIONS: * Add Glucerna TID w/ meals * [employer] eval for appropriate texture * Monitor BGs, need for NISS w/ Decadron (BGs 300's)-> NISS NOW ADDED * A1C for eval of glycemic control (BGs 200-300's) * Wound healing: continue MVI + VIT C+ [id number]/ Jose BID as tolerated * Consider appetite stimulant- refusing most meals -> monitor need for nonoral feeds w/ cont poor PO Emilio Rehman Feb 12, 2020 12:58
[2020-02-12] MEDS: NovoLOG Insulin Flexpen SUBQ SCH ×3 (13:01→21:00)
--- NOTE | 2020-02-12 13:27 | Diagnostic Imaging Report ---
Indication: Shortness of breath Technique: One view of the chest Comparison: 02/09/2020 Findings: The heart is enlarged. There is mild bilateral interstitial disease again demonstrated. There is probably a small left pleural effusion. Findings are overall unchanged. Impression: Unchanged, over one day, findings as above.
--- NOTE | 2020-02-12 13:33 | Nephrology Progress Note ---
Assessment/Plan Plan #Hypoxemic resp failure, #metabolic alkalosis #COVID infection #possible pneumonia #hypernatremia - [id number] - switch to 1/2 NS - antibiotics per ID - on lovenox - consider remdesevir - appreciate pulm recs - avoid nephrotoxins - monitor lytes time spent 35 min Subjective ROS Limited/Unobtainable: No Constitutional: Reports: weakness HEENT: Denies: no symptoms, eye pain, blurred vision, tearing, double vision, ear pain, ear discharge, nose pain, nose congestion, throat pain, throat swelling, mouth pain, mouth swelling, other Genitourinary: Denies: no symptoms, burning, discharge, frequency, flank pain, hematuria, incontinence, pain, urgency, other Neurologic/Psychiatric: Denies: no symptoms, anxiety, depressed, emotional problems, headache, numbness, paresthesia, pre-existing deficit, seizure, tingling, tremors, weakness, other Subjective sodium uptrending [id number] 500cc today Objective Objective Last 24 Hour Vital Signs Date Time Temp Pulse Resp B/P (MAP) Pulse Ox O2 Delivery O2 Flow Rate FiO2 02/12/20 08:00 97.4 65 20 140/72 (94) 91 02/12/20 04:00 60 02/12/20 04:00 97.7 62 22 134/58 (83) 95 02/12/20 00:00 98.1 66 20 142/82 (102) 95 02/11/20 21:00 Nasal Cannula 6.0 02/11/20 20:00 95.6 71 22 150/84 (106) 94 02/11/20 20:00 70 02/11/20 16:00 66 02/11/20 15:50 98.1 73 21 152/75 (100) 96 Intake and Output 02/11/20 02/12/20 19:00 07:00 Intake Total 100 ml Output Total 200 ml Balance -100 ml Intake Oral 100 ml Output Urine Total 200 ml # Voids 2 Laboratory Tests 02/12/20 04:00: White Blood Count 5.8, Red Blood Count 4.82, Hemoglobin 14.1, Hematocrit 41.3, Mean Corpuscular Volume 86, Mean Corpuscular Hemoglobin 29.3, Mean Corpuscular Hemoglobin Concent 34.2, Red Cell Distribution Width 13.1, Platelet Count 185, Mean Platelet Volume 8.4, Neutrophils (%) (Auto) 82.0H, Lymphocytes (%) (Auto) 13.5L, Monocytes (%) (Auto) 3.7, Eosinophils (%) (Auto) 0.1, Basophils (%) (Auto) 0.7, Sodium Level 136, Potassium Level 4.2, Chloride Level 102, Carbon Dioxide Level 29, Anion Gap 5, Blood Urea Nitrogen 19H, Creatinine 0.8, Estimat Glomerular Filtration Rate > 60, Glucose Level 343H, Calcium Level 8.2L, Phosphorus Level 2.9, Magnesium Level 2.2, Total Bilirubin 0.8, Direct Bilirubin 0.2, Aspartate Amino Transf (AST/SGOT) 60H, Alanine Aminotransferase (ALT/SGPT) 85H, Alkaline Phosphatase 79, Total Protein 5.7L, Albumin 1.9L, Globulin 3.8, Albumin/Globulin Ratio 0.5L 02/12/20 12:04: POC Whole Blood Glucose 305H Height (Feet): 5 Height (Inches): 5.00 Weight (Pounds): 149 Annika Cramer M.D. Feb 12, 2020 13:33
--- NOTE | 2020-02-12 13:39 | Pulmonology Progress Note ---
Subjective ROS Limited/Unobtainable: No Interval Events: None new Constitutional: Reports: fatigue; Denies: fever HEENT: Repors: no symptoms Respiratory: Reports: no symptoms Cardiovascular: Reports: no symptoms Gastrointestinal/Abdominal: Denies: nausea, vomiting, diarrhea Psychiatric: Denies: depression Skin: Denies: rash Musculoskeletal: Denies: pain Allergies: Coded Allergies: No Known Allergies (Unverified , 02/07/20) Objective Last 24 Hour Vital Signs Date Time Temp Pulse Resp B/P (MAP) Pulse Ox O2 Delivery O2 Flow Rate FiO2 02/12/20 08:00 97.4 65 20 140/72 (94) 91 02/12/20 04:00 60 02/12/20 04:00 97.7 62 22 134/58 (83) 95 02/12/20 00:00 98.1 66 20 142/82 (102) 95 02/11/20 21:00 Nasal Cannula 6.0 02/11/20 20:00 95.6 71 22 150/84 (106) 94 02/11/20 20:00 70 02/11/20 16:00 66 02/11/20 15:50 98.1 73 21 152/75 (100) 96 Intake and Output 02/11/20 02/12/20 19:00 07:00 Intake Total 100 ml Output Total 200 ml Balance -100 ml Intake Oral 100 ml Output Urine Total 200 ml # Voids 2 General Appearance: no acute distress HEENT: normocephalic Respiratory: decreased breath sounds Cardiovascular: normal peripheral pulses Abdomen: normal bowel sounds Laboratory Tests 02/12/20 04:00: White Blood Count 5.8, Red Blood Count 4.82, Hemoglobin 14.1, Hematocrit 41.3, Mean Corpuscular Volume 86, Mean Corpuscular Hemoglobin 29.3, Mean Corpuscular Hemoglobin Concent 34.2, Red Cell Distribution Width 13.1, Platelet Count 185, Mean Platelet Volume 8.4, Neutrophils (%) (Auto) 82.0H, Lymphocytes (%) (Auto) 13.5L, Monocytes (%) (Auto) 3.7, Eosinophils (%) (Auto) 0.1, Basophils (%) (Auto) 0.7, Sodium Level 136, Potassium Level 4.2, Chloride Level 102, Carbon Dioxide Level 29, Anion Gap 5, Blood Urea Nitrogen 19H, Creatinine 0.8, Estimat Glomerular Filtration Rate > 60, Glucose Level 343H, Calcium Level 8.2L, Phosphorus Level 2.9, Magnesium Level 2.2, Total Bilirubin 0.8, Direct Bilirubin 0.2, Aspartate Amino Transf (AST/SGOT) 60H, Alanine Aminotransferase (ALT/SGPT) 85H, Alkaline Phosphatase 79, Total Protein 5.7L, Albumin 1.9L, Globulin 3.8, Albumin/Globulin Ratio 0.5L 02/12/20 12:04: POC Whole Blood Glucose 305H Current Medications Medications (Trade) Dose Ordered Sig/Tawanda Route PRN Reason Start Time Stop Time Status Last Admin Dose Admin Acetaminophen (Tylenol) 650 mg Q4H PRN ORAL Temp >100.5 02/07/20 19:09 03/08/20 19:08 Ascorbic Acid (Vitamin C) 250 mg DAILY ORAL 02/10/20 09:00 03/11/20 08:59 02/12/20 09:44 Dexamethasone Sodium Phosphate (Decadron 4mg/ml vial) 6 mg DAILY IVP 02/11/20 09:00 02/17/20 09:01 02/12/20 09:54 Dextrose (Dextrose 50%) 25 ml Q30M PRN IV Hypoglycemia 02/12/20 09:45 05/12/20 09:44 Dextrose (Dextrose 50%) 50 ml Q30M PRN IV Hypoglycemia 02/12/20 09:45 05/12/20 09:44 Heparin Sodium (Porcine) (Heparin 5000 units/ml) 5,000 units EVERY 12 HOURS SUBQ 02/08/20 09:00 03/24/20 08:59 02/12/20 09:43 Insulin Aspart (NovoLOG) BEFORE MEALS AND HS SUBQ 02/12/20 11:30 05/12/20 11:29 02/12/20 13:01 Magnesium Hydroxide (Mom) 30 ml QHS PRN ORAL Constipation 02/07/20 18:45 03/08/20 18:44 Multivitamins (Multivitamins) 1 tab DAILY ORAL 02/10/20 09:00 03/11/20 08:59 02/12/20 09:44 Pantoprazole (Protonix) 40 mg DAILY ORAL 02/08/20 09:00 03/09/20 08:59 02/12/20 09:43 Piperacillin Sod/ Tazobactam Sod 3.375 gm/Dextrose 100 ml @ 25 mls/hr EVERY 8 HOURS IVPB 02/10/20 22:00 02/15/20 21:59 02/12/20 05:54 Sodium Chloride 1,000 ml @ 75 mls/hr [id number] IV 02/08/20 13:30 03/09/20 13:29 02/12/20 09:22 Zinc Sulfate (Zinc Sulfate) 220 mg DAILY ORAL 02/10/20 09:00 02/20/20 08:59 02/12/20 09:43 Assessment/Plan Assessment/Plan IMPRESSION: 1. COVID-19 pneumonia. 2. Markedly elevated inflammatory markers. 3. [facility]. DISCUSSION: Contnue Decadron and Lovenox. Defer to ID for use of remdesivir. Continue oxygen; now on 6L/min I will follow carefully. Robert Garcia Omar Syed MD Feb 12, 2020 13:38
--- NOTE | 2020-02-12 14:15 | General Progress Note ---
Subjective Date patient seen: Feb 12, 2020 ROS Limited/Unobtainable: No Allergies: Coded Allergies: No Known Allergies (Unverified , 02/07/20) Subjective Constitutional: Denies: chills, fever Eye: Denies: eye pain, blurred vision, nose congestion ENT: Denies: ear discharge, nose congestion, throat swelling Respiratory: Denies shortness of breath; Denies: cough Cardiovascular: Denies: chest pain, palpitations, syncope Gastrointestinal: Denies: abdominal pain, constipation, nausea, vomiting, melena, hematemesis Genitourinary: Denies: dysuria, frequency Musculoskeletal: Denies: muscle pain Skin: Denies: rash, dryness Psychiatric: Denies: anxiety, hallucinations Neurological: Denies: headache, seizure Endocrine: Denies: flushing, intolerance to temperature Hematologic/Lymphatic: Denies: easy bleeding Interval events: no acute events overnight Patient doing well today, no new symptoms. Unable to wean oxygen requirements so far. Attempted to wean during exam but patient's saturations dropped when placed at less than 6 L O2 NC, so put her back to 6. She denies SOB, chest pain, fever, chills. Objective Last 24 Hour Vital Signs Date Time Temp Pulse Resp B/P (MAP) Pulse Ox O2 Delivery O2 Flow Rate FiO2 02/12/20 12:00 69 02/12/20 12:00 96.3 20 150/75 (100) 79 02/12/20 08:00 97.4 65 20 140/72 (94) 91 02/12/20 04:00 60 02/12/20 04:00 97.7 62 22 134/58 (83) 95 02/12/20 00:00 98.1 66 20 142/82 (102) 95 02/11/20 21:00 Nasal Cannula 6.0 02/11/20 20:00 95.6 71 22 150/84 (106) 94 02/11/20 20:00 70 02/11/20 16:00 66 02/11/20 15:50 98.1 73 21 152/75 (100) 96 Intake and Output 02/11/20 02/12/20 19:00 07:00 Intake Total 100 ml Output Total 200 ml Balance -100 ml Intake Oral 100 ml Output Urine Total 200 ml # Voids 2 Laboratory Tests 02/12/20 04:00: White Blood Count 5.8, Red Blood Count 4.82, Hemoglobin 14.1, Hematocrit 41.3, Mean Corpuscular Volume 86, Mean Corpuscular Hemoglobin 29.3, Mean Corpuscular Hemoglobin Concent 34.2, Red Cell Distribution Width 13.1, Platelet Count 185, Mean Platelet Volume 8.4, Neutrophils (%) (Auto) 82.0H, Lymphocytes (%) (Auto) 13.5L, Monocytes (%) (Auto) 3.7, Eosinophils (%) (Auto) 0.1, Basophils (%) (Auto) 0.7, Sodium Level 136, Potassium Level 4.2, Chloride Level 102, Carbon Dioxide Level 29, Anion Gap 5, Blood Urea Nitrogen 19H, Creatinine 0.8, Estimat Glomerular Filtration Rate > 60, Glucose Level 343H, Calcium Level 8.2L, Phos phorus Level 2.9, Magnesium Level 2.2, Total Bilirubin 0.8, Direct Bilirubin 0.2, Aspartate Amino Transf (AST/SGOT) 60H, Alanine Aminotransferase (ALT/SGPT) 85H, Alkaline Phosphatase 79, Total Protein 5.7L, Albumin 1.9L, Globulin 3.8, Albumin/Globulin Ratio 0.5L 02/12/20 12:04: POC Whole Blood Glucose 305H Height (Feet): 5 Height (Inches): 5.00 Weight (Pounds): 149 Objective General Appearance: WD/WN, no apparent distress, alert, laying in bed with nasal cannula HEENT: normocephalic, atraumatic, anicteric, mucous membranes moist, supple Neck: non-tender, normal alignment, normal inspection Respiratory/Chest: chest wall non-tender, normal breath sounds, no respiratory distress, no accessory muscle use Cardiovascular/Chest: normal rate, regular rhythm Abdomen: non tender, soft, no mass Extremities: normal range of motion, non-tender, no edema, arms in soft restraints Skin Exam: normal pigmentation, warm/dry 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 CXR showing pleural effusion. Likely 2/2 COVID pneumonia vs bacterial pneumonia #Metabolic alkalosis #Elevated inflammatory markers - D-dimer, ferritin, CRP #Hypothyroidism #Hypoalbuminemia P: - stable on 6 L NC oxygen, again attempted to decrease today but desaturated. Goal O2 sat>94% - cardiac monitoring - IV abx Zosyn per ID - vancomycin discontinued per ID - dexamethasone, remdesivir - holding levothyroxine for now - ID consult, Dr. Conte, recs appreciated - Pulm consult, Dr. Cartwright, recs appreciated - Nephro consult, Dr. Cramer, recs appreciated Code: Full GI: Protonix DVT prophylaxis: Heparin 5000 units twice daily Dispo: Pending improving in hypoxic respiratory failure and lower oxygen requirements before sending back to SNF after Time spent on this encounter was 37 minutes which included 22 minutes of counseling and care coordination. I discussed with the nurse at bedside. Time of note may not reflect time patient was seen. Ronan Chan M.D. Feb 12, 2020 14:15
[2020-02-12 16:00] VITALS: BP 162/70
--- NOTE | 2020-02-12 17:35 | Infectious Diseases Prog Note ---
Assessment/Plan Assessment/Plan ASSESSMENT AND PLAN: 1. covid-19 infection, pna, ? bacterial pna, sepsis, fevers, hypoxia - zosyn - day # 6/7 abx - dexamethasone - day # 6 - s/p remdesivir - monitor labs and hypoxia - clinically less hypoxia 2. Hypothyroidism. Continue thyroid supplementation. 3. Possible hypertension. She is on blood pressure medication. 4. Hypoxia, improved. 5. Pulmonary followup. 6. No known allergies. 7. Social history is negative. 8. Family history is noncontributory. 9. MAR was noted. 10. Case was discussed with RN. Subjective Constitutional: Reports: fatigue; Denies: fever HEENT: Denies: congestion Respiratory: Denies: shortness of breath Cardiovascular: Denies: chest pain Gastrointestinal/Abdominal: Denies: nausea, vomiting, diarrhea Genitourinary: Reports: other - no manzano Neurologic: Denies: headache Psychiatric: Reports: other - NA Skin: Denies: rash Hematologic: Denies: bleeding Musculoskeletal: Denies: pain Allergies: Coded Allergies: No Known Allergies (Unverified , 02/07/20) Objective Last 24 Hour Vital Signs Date Time Temp Pulse Resp B/P (MAP) Pulse Ox O2 Delivery O2 Flow Rate FiO2 02/12/20 12:00 69 02/12/20 12:00 96.3 20 150/75 (100) 79 02/12/20 08:00 97.4 65 20 140/72 (94) 91 02/12/20 04:00 60 02/12/20 04:00 97.7 62 22 134/58 (83) 95 02/12/20 00:00 98.1 66 20 142/82 (102) 95 02/11/20 21:00 Nasal Cannula 6.0 02/11/20 20:00 95.6 71 22 150/84 (106) 94 02/11/20 20:00 70 Height (Feet): 5 Height (Inches): 5.00 Weight (Pounds): 149 General Appearance: no acute distress HEENT: normocephalic, atraumatic, anicteric, mucous membranes moist Respiratory/Chest: crackles/rales, rhonchi - bilaterally Cardiovascular: normal rate, regular rhythm, no gallop/murmur, no JVD Abdomen: normal bowel sounds, soft, non tender, no organomegaly, non distended Genitourinary: other - no manzano Extremities: no cyanosis Skin: no rash Neurologic/Psychiatric: hot frame tender II-XII grossly normal, alert, responsive Lymphatic: no neck adenopathy Musculoskeletal: no effusion 02/09/20 - Procedure: XRAY Chest 1v Indication: Shortness of breath Technique: One view of the chest Comparison: 02/07/2020 Findings: Left pleural effusion and mild interstitial congestion are unchanged. Right perihilar atelectasis is unchanged. Impression: Unchanged, over one day, findings as above. Procedure: XRAY Chest 1v Chest x-ray - 02/12/20 - Indication: Shortness of breath Technique: One view of the chest Comparison: 02/09/2020 Findings: The heart is enlarged. There is mild bilateral interstitial disease again demonstrated. There is probably a small left pleural effusion. Findings are overall unchanged. Impression: Unchanged, over one day, findings as above. Microbiology Date/Time Source Procedure Growth Status 02/07/20 12:45 Rectum - Final NO CARBAPENEM-RESISTANT ENTEROBACTERI... Complete 02/07/20 12:45 Nasal Nares MRSA Culture - Final NO METHICILLIN RESISTANT STAPH AUREUS... Complete 02/07/20 12:40 Blood Blood Culture - Preliminary NO GROWTH AFTER 72 HOURS Resulted Laboratory Tests Test 02/12/20 04:00 02/12/20 12:04 White Blood Count 5.8 K/UL (4.8-10.8) Red Blood Count 4.82 M/UL (4.20-5.40) Hemoglobin 14.1 G/DL (12.0-16.0) Hematocrit 41.3 % (37.0-47.0) Mean Corpuscular Volume 86 FL (80-99) Mean Corpuscular Hemoglobin 29.3 PG (27.0-31.0) Mean Corpuscular Hemoglobin Concent 34.2 G/DL (32.0-36.0) Red Cell Distribution Width 13.1 % (11.6-14.8) Platelet Count 185 K/UL (150-450) Mean Platelet Volume 8.4 FL (6.5-10.1) Neutrophils (%) (Auto) 82.0 % (45.0-75.0) H Lymphocytes (%) (Auto) 13.5 % (20.0-45.0) L Monocytes (%) (Auto) 3.7 % (1.0-10.0) Eosinophils (%) (Auto) 0.1 % (0.0-3.0) Basophils (%) (Auto) 0.7 % (0.0-2.0) Sodium Level 136 MMOL/L (136-145) Potassium Level 4.2 MMOL/L (3.5-5.1) Chloride Level 102 MMOL/L (98-107) Carbon Dioxide Level 29 MMOL/L (21-32) Anion Gap 5 mmol/L (5-15) Blood Urea Nitrogen 19 mg/dL (7-18) H Creatinine 0.8 MG/DL (0.55-1.30) Estimat Glomerular Filtration Rate > 60 mL/min (>60) Glucose Level 343 MG/DL (74-106) H Calcium Level 8.2 MG/DL (8.5-10.1) L Phosphorus Level 2.9 MG/DL (2.5-4.9) Magnesium Level 2.2 MG/DL (1.8-2.4) Total Bilirubin 0.8 MG/DL (0.2-1.0) Direct Bilirubin 0.2 MG/DL (0.0-0.3) Aspartate Amino Transf (AST/SGOT) 60 U/L (15-37) H Alanine Aminotransferase (ALT/SGPT) 85 U/L (12-78) H Alkaline Phosphatase 79 U/L (46-116) Total Protein 5.7 G/DL (6.4-8.2) L Albumin 1.9 G/DL (3.4-5.0) L Globulin 3.8 g/dL Albumin/Globulin Ratio 0.5 (1.0-2.7) L POC Whole Blood Glucose 305 MG/DL (74-106) H Current Medications Medications (Trade) Dose Ordered Sig/Tawanda Route PRN Reason Start Time Stop Time Status Last Admin Dose Admin Acetaminophen (Tylenol) 650 mg Q4H PRN ORAL Temp >100.5 02/07/20 19:09 03/08/20 19:08 Ascorbic Acid (Vitamin C) 250 mg DAILY ORAL 02/10/20 09:00 03/11/20 08:59 02/12/20 09:44 Dexamethasone Sodium Phosphate (Decadron 4mg/ml vial) 6 mg DAILY IVP 02/11/20 09:00 02/17/20 09:01 02/12/20 09:54 Dextrose (Dextrose 50%) 25 ml Q30M PRN IV Hypoglycemia 02/12/20 09:45 05/12/20 09:44 Dextrose (Dextrose 50%) 50 ml Q30M PRN IV Hypoglycemia 02/12/20 09:45 05/12/20 09:44 Heparin Sodium (Porcine) (Heparin 5000 units/ml) 5,000 units EVERY 12 HOURS SUBQ 02/08/20 09:00 03/24/20 08:59 02/12/20 09:43 Insulin Aspart (NovoLOG) BEFORE MEALS AND HS SUBQ 02/12/20 11:30 05/12/20 11:29 02/12/20 13:01 Magnesium Hydroxide (Mom) 30 ml QHS PRN ORAL Constipation 02/07/20 18:45 03/08/20 18:44 Multivitamins (Multivitamins) 1 tab DAILY ORAL 02/10/20 09:00 03/11/20 08:59 02/12/20 09:44 Pantoprazole (Protonix) 40 mg DAILY ORAL 02/08/20 09:00 03/09/20 08:59 02/12/20 09:43 Piperacillin Sod/ Tazobactam Sod 3.375 gm/Dextrose 100 ml @ 25 mls/hr EVERY 8 HOURS IVPB 02/10/20 22:00 02/15/20 21:59 02/12/20 14:50 Sodium Chloride 1,000 ml @ 75 mls/hr [id number] IV 02/08/20 13:30 03/09/20 13:29 02/12/20 09:22 Zinc Sulfate (Zinc Sulfate) 220 mg DAILY ORAL 02/10/20 09:00 02/20/20 08:59 02/12/20 09:43 Viktor Goodrich MD Feb 12, 2020 17:35
[2020-02-12 20:00] VITALS: BP 145/69
[2020-02-13] VITALS: BP 139/64
[2020-02-13 04:00] VITALS: BP 148/66
[2020-02-13] MEDS: NovoLOG Insulin Flexpen SUBQ SCH ×4 (06:49→21:46)
[2020-02-13 07:25] LABS: BASOPHILS % (AUTO) 0.6 % (0.0-2.0); EOSINOPHILS % (AUTO) 0.3 % (0.0-3.0); HEMATOCRIT 42.4 % (37.0-47.0); HEMOGLOBIN 15.1 G/DL (12.0-16.0); LYMPHOCYTES % (AUTO) 19.8 % (20.0-45.0); MEAN CORPUSCULAR VOLUME 83 FL (80-99); MONOCYTES % (AUTO) 6.4 % (1.0-10.0); NEUTROPHILS % (AUTO) 72.9 % (45.0-75.0); PLATELET COUNT 210 K/UL (150-450); RED BLOOD COUNT 5.13 M/UL (4.20-5.40); RED CELL DISTRIBUTION WIDTH 14.9 % (11.6-14.8); WHITE BLOOD COUNT 6.2 K/UL (4.8-10.8)
[2020-02-13 07:55] LABS: ALANINE AMINOTRANSFERASE 64 U/L (12-78); ALBUMIN 2.2 G/DL (3.4-5.0); ALBUMIN/GLOBULIN RATIO 0.5 (1.0-2.7); ALKALINE PHOSPHATASE 89 U/L (46-116); ANION GAP 6 mmol/L (5-15); ASPARTATE AMINO TRANSFERASE 40 U/L (15-37); BLOOD UREA NITROGEN 14 mg/dL (7-18); CALCIUM 8.6 MG/DL (8.5-10.1); CARBON DIOXIDE 30 MMOL/L (21-32); CHLORIDE 104 MMOL/L (98-107); CREATININE 0.8 MG/DL (0.55-1.30); POTASSIUM 3.6 MMOL/L (3.5-5.1); SODIUM 140 MMOL/L (136-145)
[2020-02-13 08:00] VITALS: BP 135/91
[2020-02-13] MEDS: Ascorbic Acid 500mg tab ORAL SCH (08:57)
[2020-02-13] MEDS: Zinc Sulfate 220mg ORAL SCH (08:57)
[2020-02-13] MEDS: Heparin 5000 units/ml inj SUBQ SCH ×2 (08:59→21:47)
--- NOTE | 2020-02-13 09:29 | General Progress Note ---
Subjective Date patient seen: Feb 13, 2020 ROS Limited/Unobtainable: Yes - confused Allergies: Coded Allergies: No Known Allergies (Unverified , 02/07/20) Subjective On 6L NC, confused, on restraints Objective Last 24 Hour Vital Signs Date Time Temp Pulse Resp B/P (MAP) Pulse Ox O2 Delivery O2 Flow Rate FiO2 02/13/20 08:00 97.5 74 20 135/91 (106) 100 02/13/20 07:47 68 02/13/20 04:00 97.7 65 20 148/66 (93) 93 02/13/20 04:00 77 02/13/20 00:00 83 02/13/20 00:00 98.1 75 20 139/64 (89) 93 02/12/20 21:00 Nasal Cannula 6.0 02/12/20 20:00 82 02/12/20 20:00 99.4 80 20 145/69 (94) 93 02/12/20 16:00 76 02/12/20 16:00 99.1 73 22 162/70 (100) 93 02/12/20 12:00 69 02/12/20 12:00 96.3 79 20 150/75 (100) 93 Intake and Output 02/12/20 02/13/20 19:00 07:00 Intake Total 100 ml Output Total 700 ml 450 ml Balance -600 ml -450 ml Intake Oral 100 ml Output Urine Total 700 ml 450 ml # Voids 1 Laboratory Tests 02/12/20 12:04: POC Whole Blood Glucose 305H 02/12/20 23:15: POC Whole Blood Glucose [Pending] 02/13/20 06:03: POC Whole Blood Glucose [Pending] 02/13/20 06:20: White Blood Count 6.2, Red Blood Count 5.13, Hemoglobin 15.1, Hematocrit 42.4, Mean Corpuscular Volume 83, Mean Corpuscular Hemoglobin 29.4, Mean Corpuscular Hemoglobin Concent 35.5, Red Cell Distribution Width 14.9H, Platelet Count 210, Mean Platelet Volume 9.3, Neutrophils (%) (Auto) 72.9, Lymphocytes (%) (Auto) 19.8L, Monocytes (%) (Auto) 6.4, Eosinophils (%) (Auto) 0.3, Basophils (%) (Auto) 0.6, Sodium Level 140, Potassium Level 3.6, Chloride Level 104, Carbon Dioxide Level 30, Anion Gap 6, Blood Urea Nitrogen 14, Creatinine 0.8, Estimat Glomerular Filtration Rate > 60, Glucose Level 190#H, Calcium Level 8.6, Total Bilirubin 1.0, Aspartate Amino Transf (AST/SGOT) 40H, Alanine Aminotransferase (ALT/SGPT) 64, Alkaline Phosphatase 89, Total Protein 6.3L, Albumin 2.2L, Globulin 4.1, Albumin/Globulin Ratio 0.5L 02/13/20 06:48: POC Whole Blood Glucose 185H Height (Feet): 5 Height (Inches): 5.00 Weight (Pounds): 149 Objective General Appearance: WD/WN, no apparent distress, alert, laying in bed with nasal cannula HEENT: normocephalic, atraumatic, anicteric, mucous membranes moist, supple Neck: non-tender, normal alignment, normal inspection Respiratory/Chest: chest wall non-tender, normal breath sounds, no respiratory distress, no accessory muscle use Cardiovascular/Chest: normal rate, regular rhythm Abdomen: non tender, soft, no mass Extremities: normal range of motion, non-tender, no edema, arms in soft restr aints Skin Exam: normal pigmentation, warm/dry 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 CXR showing pleural effusion. Likely 2/2 COVID pneumonia vs bacterial pneumonia #Metabolic alkalosis #Elevated inflammatory markers - D-dimer, ferritin, CRP #Hypothyroidism #Hypoalbuminemia P: - stable on 6 L NC oxygen, Wean as tolerated. Goal O2 sat>94% - cardiac monitoring - IV abx Zosyn per ID - vancomycin discontinued per ID - dexamethasone, remdesivir - holding levothyroxine for now - ID consult, Dr. Conte, recs appreciated - Pulm consult, Dr. Cartwright, recs appreciated - Nephro consult, Dr. Cramer, recs appreciated Code: Full GI: Protonix DVT prophylaxis: Heparin 5000 units twice daily Dispo: Pending improving in hypoxic respiratory failure and lower oxygen requirements before sending back to [facility] after Time spent on this encounter was 37 minutes which included 22 minutes of counseling and care coordination. I discussed with the nurse at bedside. Time of note may not reflect time patient was seen. Abdiel Delgado M.D. Feb 13, 2020 09:29
[2020-02-13 12:00] VITALS: BP 132/72
--- NOTE | 2020-02-13 12:29 | Nephrology Progress Note ---
Assessment/Plan Plan #Hypoxemic resp failure, #metabolic alkalosis #COVID infection #possible pneumonia #hypernatremia - switch to 1/2 NS - antibiotics per ID - on lovenox - consider remdesevir - appreciate pulm recs - avoid nephrotoxins - monitor lytes time spent 35 min Subjective ROS Limited/Unobtainable: No Constitutional: Reports: weakness Objective Objective Last 24 Hour Vital Signs Date Time Temp Pulse Resp B/P (MAP) Pulse Ox O2 Delivery O2 Flow Rate FiO2 02/13/20 09:00 Nasal Cannula 6.0 02/13/20 08:00 97.5 74 20 135/91 (106) 100 02/13/20 07:47 68 02/13/20 04:00 97.7 65 20 148/66 (93) 93 02/13/20 04:00 77 02/13/20 00:00 83 02/13/20 00:00 98.1 75 20 139/64 (89) 93 02/12/20 21:00 Nasal Cannula 6.0 02/12/20 20:00 82 02/12/20 20:00 99.4 80 20 145/69 (94) 93 02/12/20 16:00 76 02/12/20 16:00 99.1 73 22 162/70 (100) 93 Intake and Output 02/12/20 02/13/20 19:00 07:00 Intake Total 100 ml Output Total 700 ml 450 ml Balance -600 ml -450 ml Intake Oral 100 ml Output Urine Total 700 ml 450 ml # Voids 1 Laboratory Tests 02/12/20 23:15: POC Whole Blood Glucose [Pending] 02/13/20 06:03: POC Whole Blood Glucose [Pending] 02/13/20 06:20: White Blood Count 6.2, Red Blood Count 5.13, Hemoglobin 15.1, Hematocrit 42.4, Mean Corpuscular Volume 83, Mean Corpuscular Hemoglobin 29.4, Mean Corpuscular Hemoglobin Concent 35.5, Red Cell Distribution Width 14.9H, Platelet Count 210, Mean Platelet Volume 9.3, Neutrophils (%) (Auto) 72.9, Lymphocytes (%) (Auto) 19.8L, Monocytes (%) (Auto) 6.4, Eosinophils (%) (Auto) 0.3, Basophils (%) (Auto) 0.6, Sodium Level 140, Potassium Level 3.6, Chloride Level 104, Carbon Dioxide Level 30, Anion Gap 6, Blood Urea Nitrogen 14, Creatinine 0.8, Estimat Glomerular Filtration Rate > 60, Glucose Level 190#H, Calcium Level 8.6, Total Bilirubin 1.0, Aspartate Amino Transf (AST/SGOT) 40H, Alanine Aminotransferase (ALT/SGPT) 64, Alkaline Phosphatase 89, Total Protein 6.3L, Albumin 2.2L, Globulin 4.1, Albumin/Globulin Ratio 0.5L 02/13/20 06:48: POC Whole Blood Glucose 185H Height (Feet): 5 Height (Inches): 5.00 Weight (Pounds): 149 Annika Cramer M.D. Feb 13, 2020 12:29
--- NOTE | 2020-02-13 15:50 | Surgery Progress Note ---
Surgery Progress Note Subjective Symptoms: improved, tolerating diet, voiding well, passing flatus, BM Objective Last 24 Hour Vital Signs Date Time Temp Pulse Resp B/P (MAP) Pulse Ox O2 Delivery O2 Flow Rate FiO2 02/13/20 12:00 97.5 72 22 132/72 (92) 95 02/13/20 12:00 68 02/13/20 09:00 Nasal Cannula 6.0 02/13/20 08:00 97.5 74 20 135/91 (106) 100 02/13/20 07:47 68 02/13/20 04:00 97.7 65 20 148/66 (93) 93 02/13/20 04:00 77 02/13/20 00:00 83 02/13/20 00:00 98.1 75 20 139/64 (89) 93 02/12/20 21:00 Nasal Cannula 6.0 02/12/20 20:00 82 02/12/20 20:00 99.4 80 20 145/69 (94) 93 02/12/20 16:00 76 02/12/20 16:00 99.1 73 22 162/70 (100) 93 I&O Intake and Output 02/12/20 02/13/20 19:00 07:00 Intake Total 100 ml Output Total 700 ml 450 ml Balance -600 ml -450 ml Intake Oral 100 ml Output Urine Total 700 ml 450 ml # Voids 1 Dressing: saturated Cardiovascular: RSR Respiratory: decreased breath sounds Abdomen: soft, non-tender, present bowel sounds, non-distended Laboratory Tests Test 02/12/20 23:15 02/13/20 06:03 02/13/20 06:20 02/13/20 06:48 POC Whole Blood Glucose Pending Pending 185 MG/DL (74-106) H White Blood Count 6.2 K/UL (4.8-10.8) Red Blood Count 5.13 M/UL (4.20-5.40) Hemoglobin 15.1 G/DL (12.0-16.0) Hematocrit 42.4 % (37.0-47.0) Mean Corpuscular Volume 83 FL (80-99) Mean Corpuscular Hemoglobin 29.4 PG (27.0-31.0) Mean Corpuscular Hemoglobin Concent 35.5 G/DL (32.0-36.0) Red Cell Distribution Width 14.9 % (11.6-14.8) H Platelet Count 210 K/UL (150-450) Mean Platelet Volume 9.3 FL (6.5-10.1) Neutrophils (%) (Auto) 72.9 % (45.0-75.0) Lymphocytes (%) (Auto) 19.8 % (20.0-45.0) L Monocytes (%) (Auto) 6.4 % (1.0-10.0) Eosinophils (%) (Auto) 0.3 % (0.0-3.0) Basophils (%) (Auto) 0.6 % (0.0-2.0) Sodium Level 140 MMOL/L (136-145) Potassium Level 3.6 MMOL/L (3.5-5.1) Chloride Level 104 MMOL/L (98-107) Carbon Dioxide Level 30 MMOL/L (21-32) Anion Gap 6 mmol/L (5-15) Blood Urea Nitrogen 14 mg/dL (7-18) Creatinine 0.8 MG/DL (0.55-1.30) Estimat Glomerular Filtration Rate > 60 mL/min (>60) Glucose Level 190 MG/DL (74-106) #H Calcium Level 8.6 MG/DL (8.5-10.1) Total Bilirubin 1.0 MG/DL (0.2-1.0) Aspartate Amino Transf (AST/SGOT) 40 U/L (15-37) H Alanine Aminotransferase (ALT/SGPT) 64 U/L (12-78) Alkaline Phosphatase 89 U/L (46-116) Total Protein 6.3 G/DL (6.4-8.2) L Albumin 2.2 G/DL (3.4-5.0) L Globulin 4.1 g/dL Albumin/Globulin Ratio 0.5 (1.0-2.7) L Plan Problems: (1) Respiratory distress Assessment & Plan: Left pleural effusion and mild interstitial congestion are unchanged. Right perihilar atelectasis is unchanged. respiratory care as per pulm cont O2 improved d/c planning (2) Sacral decubitus ulcer Assessment & Plan: Patient identified admission to have a sacral cubitus ulcer. 3 cm x 2 cm x 2 mm deep stage III/stage II sacral decubitus ulcer identified on the left. No active drainage no signs of active infection no tunneling noted. Wound otherwise clean. Likely from shear forces. Wash wound daily with normal saline apply Thera honey gauze followed by Optifoam dressing. Turn every 2 hours. Offload pressure with pillows. Heel protectors. Nutritional optimization. Will follow with recommendations. Thank you for letting participate patient's care DAILY ESTIMATED NEEDS: Needs based on wound/ 67kg 25-30 kcals/kg total kcals 1.25-1.5 g protein/kg 83-100 g total protein 25-30 mL/kg total fluid mLs NUTRITION DIAGNOSIS: Increased kcal/prot needs R/T wound healing as evidenced by pt admitted w/ open lt buttock wound per photo, pending evaluation, currently refusing meals, pt is COVID-19 positive. CURRENT DIET:LOW NA PO DIET RECOMMENDATIONS: Liberalized regular diet w/ poor PO ADDITIONAL RECOMMENDATIONS: * Glucerna TID w/ meals * JIG OPERATOR eval for appropriate texture * Monitor BGs, need for NISS w/ Decadron (BGs 200's) * A1C for eval of glycemic control (BGs 200's) * Consider adjusting IVF: Na and BUn trend up * Wound healing: add MVI x 1, Vit C 250mg QD, ZnSO4 220mg x 10 days Jose BID as tolerated (3) COVID-19 Assessment & Plan: DAILY ESTIMATED NEEDS: Needs based on wound/ 67kg 25-30 kcals/kg total kcals 1.25-1.5 g protein/kg 83-100 g total protein 25-30 mL/kg total fluid mLs NUTRITION DIAGNOSIS: Increased kcal/prot needs R/T wound healing as evidenced by pt admitted w/ stage 2-3 sacral wound, currently refusing most meals, pt is COVID-19 positive. CURRENT DIET:LOW NA PO DIET RECOMMENDATIONS: Liberalized regular diet w/ poor PO(Texture per JIG OPERATOR) + Glucerna TID w/ meals ADDITIONAL RECOMMENDATIONS: * Add Glucerna TID w/ meals * JIG OPERATOR eval for appropriate texture * Monitor BGs, need for NISS w/ Decadron (BGs 300's)-> NISS NOW ADDED * A1C for eval of glycemic control (BGs 200-300's) * Wound healing: continue MVI + VIT C+ [id number]/ Jose BID as tolerated * Consider appetite stimulant- refusing most meals -> monitor need for nonoral feeds w/ cont poor PO Emilio Rehman Feb 13, 2020 15:50
[2020-02-13 16:00] VITALS: BP 149/74
--- NOTE | 2020-02-13 17:57 | Pulmonology Progress Note ---
Subjective ROS Limited/Unobtainable: Yes - confused Interval Events: None new Constitutional: Reports: fatigue; Denies: fever HEENT: Repors: no symptoms Respiratory: Reports: no symptoms Cardiovascular: Reports: no symptoms Gastrointestinal/Abdominal: Denies: nausea, vomiting, diarrhea Psychiatric: Reports: other - NA Skin: Denies: rash Musculoskeletal: Denies: pain Allergies: Coded Allergies: No Known Allergies (Unverified , 02/07/20) Objective Last 24 Hour Vital Signs Date Time Temp Pulse Resp B/P (MAP) Pulse Ox O2 Delivery O2 Flow Rate FiO2 02/13/20 16:00 97.9 80 20 149/74 (99) 93 02/13/20 12:00 97.5 72 22 132/72 (92) 95 02/13/20 12:00 68 02/13/20 09:00 Nasal Cannula 6.0 02/13/20 08:00 97.5 74 20 135/91 (106) 100 02/13/20 07:47 68 02/13/20 04:00 97.7 65 20 148/66 (93) 93 02/13/20 04:00 77 02/13/20 00:00 83 02/13/20 00:00 98.1 75 20 139/64 (89) 93 02/12/20 21:00 Nasal Cannula 6.0 02/12/20 20:00 82 02/12/20 20:00 99.4 80 20 145/69 (94) 93 Intake and Output 02/12/20 02/13/20 19:00 07:00 Intake Total 100 ml Output Total 700 ml 450 ml Balance -600 ml -450 ml Intake Oral 100 ml Output Urine Total 700 ml 450 ml # Voids 1 General Appearance: no acute distress HEENT: normocephalic Respiratory: decreased breath sounds Cardiovascular: normal peripheral pulses Abdomen: normal bowel sounds Laboratory Tests 02/12/20 23:15: POC Whole Blood Glucose [Pending] 02/13/20 06:03: POC Whole Blood Glucose [Pending] 02/13/20 06:20: White Blood Count 6.2, Red Blood Count 5.13, Hemoglobin 15.1, Hematocrit 42.4, Mean Corpuscular Volume 83, Mean Corpuscular Hemoglobin 29.4, Mean Corpuscular Hemoglobin Concent 35.5, Red Cell Distribution Width 14.9H, Platelet Count 210, Mean Platelet Volume 9.3, Neutrophils (%) (Auto) 72.9, Lymphocytes (%) (Auto) 19.8L, Monocytes (%) (Auto) 6.4, Eosinophils (%) (Auto) 0.3, Basophils (%) (Auto) 0.6, Sodium Level 140, Potassium Level 3.6, Chloride Level 104, Carbon Dioxide Level 30, Anion Gap 6, Blood Urea Nitrogen 14, Creatinine 0.8, Estimat Glomerular Filtration Rate > 60, Glucose Level 190#H, Calcium Level 8.6, Total Bilirubin 1.0, Aspartate Amino Transf (AST/SGOT) 40H, Alanine Aminotransferase (ALT/SGPT) 64, Alkaline Phosphatase 89, Total Protein 6.3L, Albumin 2.2L, Globulin 4.1, Albumin/Globulin Ratio 0.5L 02/13/20 06:48: POC Whole Blood Glucose 185H Current Medications Medications (Trade) Dose Ordered Sig/Tawanda Route PRN Reason Start Time Stop Time Status Last Admin Dose Admin Acetaminophen (Tylenol) 650 mg Q4H PRN ORAL Temp >100.5 02/07/20 19:09 03/08/20 19:08 Ascorbic Acid (Vitamin C) 250 mg DAILY ORAL 02/10/20 09:00 03/11/20 08:59 02/13/20 08:57 Dexamethasone Sodium Phosphate (Decadron 4mg/ml vial) 6 mg DAILY IVP 02/11/20 09:00 02/17/20 09:01 02/13/20 08:58 Dextrose (Dextrose 50%) 25 ml Q30M PRN IV Hypoglycemia 02/12/20 09:45 05/12/20 09:44 Dextrose (Dextrose 50%) 50 ml Q30M PRN IV Hypoglycemia 02/12/20 09:45 05/12/20 09:44 Heparin Sodium (Porcine) (Heparin 5000 units/ml) 5,000 units EVERY 12 HOURS SUBQ 02/08/20 09:00 03/24/20 08:59 02/13/20 08:59 Insulin Aspart (NovoLOG) BEFORE MEALS AND HS SUBQ 02/12/20 11:30 05/12/20 11:29 02/13/20 16:47 Magnesium Hydroxide (Mom) 30 ml QHS PRN ORAL Constipation 02/07/20 18:45 03/08/20 18:44 Multivitamins (Multivitamins) 1 tab DAILY ORAL 02/10/20 09:00 03/11/20 08:59 02/13/20 08:58 Pantoprazole (Protonix) 40 mg DAILY ORAL 02/08/20 09:00 03/09/20 08:59 02/13/20 08:57 Piperacillin Sod/ Tazobactam Sod 3.375 gm/Dextrose 100 ml @ 25 mls/hr EVERY 8 HOURS IVPB 02/10/20 22:00 02/15/20 21:59 02/13/20 14:03 Sodium Chloride 1,000 ml @ 75 mls/hr [id number] IV 02/08/20 13:30 03/09/20 13:29 02/13/20 13:27 Zinc Sulfate (Zinc Sulfate) 220 mg DAILY ORAL 02/10/20 09:00 02/20/20 08:59 02/13/20 08:57 Assessment/Plan Assessment/Plan IMPRESSION: 1. COVID-19 pneumonia. 2. Markedly elevated inflammatory markers. 3. [facility] resident. DISCUSSION: Contnue Decadron and Lovenox. Defer to ID for use of remdesivir. Continue oxygen; now on 6L/min I will follow carefully. Robert Garcia Omar Syed MD Feb 13, 2020 17:57
[2020-02-13 20:00] VITALS: BP 176/92
[2020-02-13] MEDS: HydrALAZINE 10mg Tab ORAL PRN (21:50)
[2020-02-14] VITALS: BP 148/83
[2020-02-14 04:00] VITALS: BP 159/84
[2020-02-14 06:03] LABS: BASOPHILS % (AUTO) 0.8 % (0.0-2.0); EOSINOPHILS % (AUTO) 0.1 % (0.0-3.0); HEMATOCRIT 45.9 % (37.0-47.0); HEMOGLOBIN 15.7 G/DL (12.0-16.0); MEAN CORPUSCULAR VOLUME 85 FL (80-99); MONOCYTES % (AUTO) 7.7 % (1.0-10.0); NEUTROPHILS % (AUTO) 71.4 % (45.0-75.0); PLATELET COUNT 195 K/UL (150-450); RED BLOOD COUNT 5.41 M/UL (4.20-5.40); RED CELL DISTRIBUTION WIDTH 13.7 % (11.6-14.8); WHITE BLOOD COUNT 6.5 K/UL (4.8-10.8)
[2020-02-14] MEDS: NovoLOG Insulin Flexpen SUBQ SCH ×4 (06:04→21:03)
[2020-02-14 06:05] LABS: CALCIUM 8.5 MG/DL (8.5-10.1); CREATININE 0.9 MG/DL (0.55-1.30)
[2020-02-14] MEDS: HydrALAZINE 10mg Tab ORAL PRN (06:14)
[2020-02-14 08:00] VITALS: BP 152/77
[2020-02-14] MEDS: Ascorbic Acid 500mg tab ORAL SCH (09:33)
[2020-02-14] MEDS: Zinc Sulfate 220mg ORAL SCH (09:33)
[2020-02-14] MEDS: Heparin 5000 units/ml inj SUBQ SCH ×2 (09:35→20:33)
--- NOTE | 2020-02-14 10:27 | General Progress Note ---
Subjective Date patient seen: Feb 14, 2020 ROS Limited/Unobtainable: Yes Allergies: Coded Allergies: No Known Allergies (Unverified , 02/07/20) Subjective On 3L NC, confused, no distress Objective Last 24 Hour Vital Signs Date Time Temp Pulse Resp B/P (MAP) Pulse Ox O2 Delivery O2 Flow Rate FiO2 02/14/20 08:00 97.2 61 21 152/77 (102) 95 02/14/20 08:00 58 02/14/20 06:14 169/70 02/14/20 04:00 72 02/14/20 04:00 97.3 74 20 159/84 (109) 96 02/14/20 00:00 97.5 72 21 148/83 (104) 95 02/14/20 00:00 75 02/13/20 21:50 182/95 02/13/20 21:00 Nasal Cannula 3.0 02/13/20 20:00 97.5 98 21 176/92 (120) 95 02/13/20 20:00 74 02/13/20 16:00 87 02/13/20 16:00 97.9 80 20 149/74 (99) 93 02/13/20 12:00 97.5 72 22 132/72 (92) 95 02/13/20 12:00 68 Intake and Output 02/13/20 02/14/20 19:00 07:00 Intake Total 75 ml 675 ml Output Total 500 ml Balance 75 ml 175 ml IV Total 75 ml 675 ml Output Urine Total 500 ml # Voids 3 # Bowel Movements 1 Laboratory Tests 02/13/20 11:30: POC Whole Blood Glucose [Pending] 02/13/20 16:30: POC Whole Blood Glucose 257H 02/13/20 21:41: POC Whole Blood Glucose 197H 02/14/20 05:35: White Blood Count 6.5, Red Blood Count 5.41H, Hemoglobin 15.7, Hematocrit 45.9, Mean Corpuscular Volume 85, Mean Corpuscular Hemoglobin 29.0, Mean Corpuscular Hemoglobin Concent 34.2, Red Cell Distribution Width 13.7, Platelet Count 195, Mean Platelet Volume 9.0, Neutrophils (%) (Auto) 71.4, Lymphocytes (%) (Auto) 20.0, Monocytes (%) (Auto) 7.7, Eosinophils (%) (Auto) 0.1, Basophils (%) (Auto) 0.8, Sodium Level 140, Potassium Level 4.0, Chloride Level 104, Carbon Dioxide Level 31, Anion Gap 5, Blood Urea Nitrogen 17, Creatinine 0.9, Estimat Glomerular Filtration Rate 59.2, Glucose Level 156H, Calcium Level 8.5 02/14/20 05:57: POC Whole Blood Glucose 147H Height (Feet): 5 Height (Inches): 5.00 Weight (Pounds): 149 Objective General Appearance: WD/WN, no apparent distress, alert, laying in bed with nasal cannula HEENT: normocephalic, atraumatic, anicteric, mucous membranes moist, supple Neck: non-tender, normal alignment, normal inspection Respiratory/Chest: chest wall non-tender, normal breath sounds, no respiratory distress, no accessory muscle use Cardiovascular/Chest: normal rate, regular rhythm Abdomen: non tender, soft, no mass Extremities: normal range of motion, non-tender, no edema, arms in soft restraints Skin Exam: normal pigmentation, warm/dry 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 CXR showing pleural effusion. Likely 2/2 COVID pneumonia vs bacterial pneumonia #Metabolic alkalosis #Elevated inflammatory markers - D-dimer, ferritin, CRP #Hypothyroidism #Hypoalbuminemia P: - stable on 3 L NC oxygen, Wean as tolerated. Goal O2 sat>94%, weaning has been going well - cardiac monitoring - IV abx Zosyn per ID - vancomycin discontinued per ID - dexamethasone, remdesivir - holding levothyroxine for now - ID consult, Dr. Conte, recs appreciated - Pulm consult, Dr. Cartwright recs appreciated - Nephro consult, rema Mcculloughs appreciated Code: Full GI: Protonix DVT prophylaxis: Heparin 5000 units twice daily Dispo: Pending improving in hypoxic respiratory failure and lower oxygen requirements before sending back to SNF after Time spent on this encounter was 37 minutes which included 22 minutes of counseling and care coordination. I discussed with the nurse at bedside. Time of note may not reflect time patient was seen. Abdiel Delgado M.D. Feb 14, 2020 10:27
[2020-02-14 12:00] VITALS: BP 167/73
[2020-02-14 16:00] VITALS: BP 155/88
--- NOTE | 2020-02-14 17:20 | Infectious Diseases Prog Note ---
Assessment/Plan Assessment/Plan ASSESSMENT AND PLAN: 1. covid-19 infection, pna, ? bacterial pna, sepsis, fevers, hypoxia - s/p zosyn - dexamethasone - day # 8 - s/p remdesivir - monitor labs and hypoxia - clinically less hypoxia 2. Hypothyroidism. Continue thyroid supplementation. 3. Possible hypertension. She is on blood pressure medication. 4. Hypoxia, improved. 5. Pulmonary followup. 6. No known allergies. 7. Social history is negative. 8. Family history is noncontributory. 9. MAR was noted. 10. Case was discussed with RN. Subjective Constitutional: Reports: fatigue; Denies: fever HEENT: Denies: congestion Respiratory: Denies: shortness of breath Cardiovascular: Denies: chest pain Gastrointestinal/Abdominal: Denies: nausea, vomiting, diarrhea Genitourinary: Reports: other - no manzano Neurologic: Denies: headache Psychiatric: Denies: depression Skin: Denies: rash Hematologic: Denies: bleeding Musculoskeletal: Denies: pain Allergies: Coded Allergies: No Known Allergies (Unverified , 02/07/20) Objective Last 24 Hour Vital Signs Date Time Temp Pulse Resp B/P (MAP) Pulse Ox O2 Delivery O2 Flow Rate FiO2 02/14/20 12:00 61 02/14/20 12:00 96.7 84 22 167/73 (104) 94 02/14/20 09:00 Nasal Cannula 2.0 02/14/20 08:00 97.2 61 21 152/77 (102) 95 02/14/20 08:00 58 02/14/20 06:14 169/70 02/14/20 04:00 72 02/14/20 04:00 97.3 74 20 159/84 (109) 96 02/14/20 00:00 97.5 72 21 148/83 (104) 95 02/14/20 00:00 75 02/13/20 21:50 182/95 02/13/20 21:00 Nasal Cannula 3.0 02/13/20 20:00 97.5 98 21 176/92 (120) 95 02/13/20 20:00 74 Height (Feet): 5 Height (Inches): 5.00 Weight (Pounds): 149 General Appearance: no acute distress HEENT: normocephalic, atraumatic, anicteric, mucous membranes moist Respiratory/Chest: crackles/rales, rhonchi - bilaterally Cardiovascular: normal rate, regular rhythm, no gallop/murmur, no JVD Abdomen: normal bowel sounds, soft, non tender, no organomegaly, non distended Genitourinary: other - no manzano Extremities: no cyanosis Skin: no rash 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 Right perihilar atelectasis is unchanged. Impression: Unchanged, over one day, findings as above. Procedure: XRAY Chest 1v Chest x-ray - 02/12/20 - Indication: Shortness of breath Technique: One view of the chest Comparison: 02/09/2020 Findings: The heart is enlarged. There is mild bilateral interstitial disease again demonstrated. There is probably a small left pleural effusion. Findings are overall unchanged. Impression: Unchanged, over one day, findings as above. Microbiology Date/Time Source Procedure Growth Status 02/07/20 12:45 Rectum - Final NO CARBAPENEM-RESISTANT ENTEROBACTERI... Complete 02/07/20 12:45 Nasal Nares MRSA Culture - Final NO METHICILLIN RESISTANT STAPH AUREUS... Complete 02/07/20 12:40 Blood Blood Culture - Final NO GROWTH AFTER 5 DAYS Complete Laboratory Tests Test 02/13/20 21:41 02/14/20 05:35 02/14/20 05:57 02/14/20 16:42 POC Whole Blood Glucose 197 MG/DL (74-106) H 147 MG/DL (74-106) H 232 MG/DL (74-106) H White Blood Count 6.5 K/UL (4.8-10.8) Red Blood Count 5.41 M/UL (4.20-5.40) H Hemoglobin 15.7 G/DL (12.0-16.0) Hematocrit 45.9 % (37.0-47.0) Mean Corpuscular Volume 85 FL (80-99) Mean Corpuscular Hemoglobin 29.0 PG (27.0-31.0) Mean Corpuscular Hemoglobin Concent 34.2 G/DL (32.0-36.0) Red Cell Distribution Width 13.7 % (11.6-14.8) Platelet Count 195 K/UL (150-450) Mean Platelet Volume 9.0 FL (6.5-10.1) Neutrophils (%) (Auto) 71.4 % (45.0-75.0) Lymphocytes (%) (Auto) 20.0 % (20.0-45.0) Monocytes (%) (Auto) 7.7 % (1.0-10.0) Eosinophils (%) (Auto) 0.1 % (0.0-3.0) Basophils (%) (Auto) 0.8 % (0.0-2.0) Sodium Level 140 MMOL/L (136-145) Potassium Level 4.0 MMOL/L (3.5-5.1) Chloride Level 104 MMOL/L (98-107) Carbon Dioxide Level 31 MMOL/L (21-32) Anion Gap 5 mmol/L (5-15) Blood Urea Nitrogen 17 mg/dL (7-18) Creatinine 0.9 MG/DL (0.55-1.30) Estimat Glomerular Filtration Rate 59.2 mL/min (>60) Glucose Level 156 MG/DL (74-106) H Calcium Level 8.5 MG/DL (8.5-10.1) Current Medications Medications (Trade) Dose Ordered Sig/Tawanda Route PRN Reason Start Time Stop Time Status Last Admin Dose Admin Acetaminophen (Tylenol) 650 mg Q4H PRN ORAL Temp >100.5 02/07/20 19:09 03/08/20 19:08 Ascorbic Acid (Vitamin C) 250 mg DAILY ORAL 02/10/20 09:00 03/11/20 08:59 02/14/20 09:33 Dexamethasone Sodium Phosphate (Decadron 4mg/ml vial) 6 mg DAILY IVP 02/11/20 09:00 02/17/20 09:01 02/14/20 09:32 Dextrose (Dextrose 50%) 25 ml Q30M PRN IV Hypoglycemia 02/12/20 09:45 05/12/20 09:44 Dextrose (Dextrose 50%) 50 ml Q30M PRN IV Hypoglycemia 02/12/20 09:45 05/12/20 09:44 Heparin Sodium (Porcine) (Heparin 5000 units/ml) 5,000 units EVERY 12 HOURS SUBQ 02/08/20 09:00 03/24/20 08:59 02/14/20 09:35 Hydralazine HCl (Apresoline) 10 mg Q4H PRN ORAL For High Blood Pressure 02/13/20 21:45 05/13/20 21:44 02/14/20 06:14 Insulin Aspart (NovoLOG) BEFORE MEALS AND HS SUBQ 02/12/20 11:30 05/12/20 11:29 02/14/20 16:53 Magnesium Hydroxide (Mom) 30 ml QHS PRN ORAL Constipation 02/07/20 18:45 03/08/20 18:44 Multivitamins (Multivitamins) 1 tab DAILY ORAL 02/10/20 09:00 03/11/20 08:59 02/14/20 09:33 Pantoprazole (Protonix) 40 mg DAILY ORAL 02/08/20 09:00 03/09/20 08:59 02/14/20 09:33 Piperacillin Sod/ Tazobactam Sod 3.375 gm/Dextrose 100 ml @ 25 mls/hr EVERY 8 HOURS IVPB 02/10/20 22:00 02/15/20 21:59 02/14/20 13:28 Sodium Chloride 1,000 ml @ 75 mls/hr [id number] IV 02/08/20 13:30 03/09/20 13:29 02/14/20 16:46 Zinc Sulfate (Zinc Sulfate) 220 mg DAILY ORAL 02/10/20 09:00 02/20/20 08:59 02/14/20 09:33 Viktor Goodrich MD Feb 14, 2020 17:19
--- NOTE | 2020-02-14 17:22 | Pulmonology Progress Note ---
Subjective ROS Limited/Unobtainable: Yes Interval Events: BP elevated overnight Constitutional: Reports: fatigue; Denies: fever HEENT: Repors: no symptoms Respiratory: Reports: no symptoms Cardiovascular: Reports: no symptoms Gastrointestinal/Abdominal: Denies: nausea, vomiting, diarrhea Psychiatric: Denies: depression Skin: Denies: rash Musculoskeletal: Denies: pain Allergies: Coded Allergies: No Known Allergies (Unverified , 02/07/20) Objective Last 24 Hour Vital Signs Date Time Temp Pulse Resp B/P (MAP) Pulse Ox O2 Delivery O2 Flow Rate FiO2 02/14/20 12:00 61 02/14/20 12:00 96.7 84 22 167/73 (104) 94 02/14/20 09:00 Nasal Cannula 2.0 02/14/20 08:00 97.2 61 21 152/77 (102) 95 02/14/20 08:00 58 02/14/20 06:14 169/70 02/14/20 04:00 72 02/14/20 04:00 97.3 74 20 159/84 (109) 96 02/14/20 00:00 97.5 72 21 148/83 (104) 95 02/14/20 00:00 75 02/13/20 21:50 182/95 02/13/20 21:00 Nasal Cannula 3.0 02/13/20 20:00 97.5 98 21 176/92 (120) 95 02/13/20 20:00 74 Intake and Output 02/13/20 02/14/20 19:00 07:00 Intake Total 75 ml 675 ml Output Total 500 ml Balance 75 ml 175 ml IV Total 75 ml 675 ml Output Urine Total 500 ml # Voids 3 # Bowel Movements 1 Objective pt appears lethargic in bed General Appearance: no acute distress HEENT: normocephalic, no JVD Respiratory: decreased breath sounds Cardiovascular: normal peripheral pulses Abdomen: normal bowel sounds, soft, non tender Extremities: other - trace b/l LE edema Laboratory Tests 02/13/20 21:41: POC Whole Blood Glucose 197H 02/14/20 05:35: White Blood Count 6.5, Red Blood Count 5.41H, Hemoglobin 15.7, Hematocrit 45.9, Mean Corpuscular Volume 85, Mean Corpuscular Hemoglobin 29.0, Mean Corpuscular Hemoglobin Concent 34.2, Red Cell Distribution Width 13.7, Platelet Count 195, Mean Platelet Volume 9.0, Neutrophils (%) (Auto) 71.4, Lymphocytes (%) (Auto) 20.0, Monocytes (%) (Auto) 7.7, Eosinophils (%) (Auto) 0.1, Basophils (%) (Auto) 0.8, Sodium Level 140, Potassium Level 4.0, Chloride Level 104, Carbon Dioxide Level 31, Anion Gap 5, Blood Urea Nitrogen 17, Creatinine 0.9, Estimat Glomerular Filtration Rate 59.2, Glucose Level 156H, Calcium Level 8.5 02/14/20 05:57: POC Whole Blood Glucose 147H 02/14/20 16:42: POC Whole Blood Glucose 232H Current Medications Medications (Trade) Dose Ordered Sig/Tawanda Route PRN Reason Start Time Stop Time Status Last Admin Dose Admin Acetaminophen (Tylenol) 650 mg Q4H PRN ORAL Temp >100.5 02/07/20 19:09 03/08/20 19:08 Ascorbic Acid (Vitamin C) 250 mg DAILY ORAL 02/10/20 09:00 03/11/20 08:59 02/14/20 09:33 Dexamethasone Sodium Phosphate (Decadron 4mg/ml vial) 6 mg DAILY IVP 02/11/20 09:00 02/17/20 09:01 02/14/20 09:32 Dextrose (Dextrose 50%) 25 ml Q30M PRN IV Hypoglycemia 02/12/20 09:45 05/12/20 09:44 Dextrose (Dextrose 50%) 50 ml Q30M PRN IV Hypoglycemia 02/12/20 09:45 05/12/20 09:44 Heparin Sodium (Porcine) (Heparin 5000 units/ml) 5,000 units EVERY 12 HOURS SUBQ 02/08/20 09:00 03/24/20 08:59 02/14/20 09:35 Hydralazine HCl (Apresoline) 10 mg Q4H PRN ORAL For High Blood Pressure 02/13/20 21:45 05/13/20 21:44 02/14/20 06:14 Insulin Aspart (NovoLOG) BEFORE MEALS AND HS SUBQ 02/12/20 11:30 05/12/20 11:29 02/14/20 16:53 Magnesium Hydroxide (Mom) 30 ml QHS PRN ORAL Constipation 02/07/20 18:45 03/08/20 18:44 Multivitamins (Multivitamins) 1 tab DAILY ORAL 02/10/20 09:00 03/11/20 08:59 02/14/20 09:33 Pantoprazole (Protonix) 40 mg DAILY ORAL 02/08/20 09:00 03/09/20 08:59 02/14/20 09:33 Piperacillin Sod/ Tazobactam Sod 3.375 gm/Dextrose 100 ml @ 25 mls/hr EVERY 8 HOURS IVPB 02/10/20 22:00 02/15/20 21:59 02/14/20 13:28 Sodium Chloride 1,000 ml @ 75 mls/hr [id number] IV 02/08/20 13:30 03/09/20 13:29 02/14/20 16:46 Zinc Sulfate (Zinc Sulfate) 220 mg DAILY ORAL 02/10/20 09:00 02/20/20 08:59 02/14/20 09:33 Assessment/Plan Assessment/Plan 1. COVID-19 pneumonia. - Contnue Decadron - s/p zosyn - s/p remdesivir - clinically less hypoxic 2. Markedly elevated inflammatory markers. - Lovenox added on 02/07/2020 3. shelter resident. - Daughter wants her to be discharged to home with oxygen, per RN 4. Hypoxia - Slowly weaning oxygen - Now on 1L/min; Saturating at 93% The care for this patient was discussed with my supervising physician The history of Zoya Montenegro has been reviewed and management options for her have been examined and discussed by Kevin Cartwright. I have personally examined and interviewed the patient. Time spent for this case was approximately 31 minutes Mario Binachi Feb 14, 2020 17:22 Kevin Cartwright MD Feb 15, 2020 11:04
--- NOTE | 2020-02-14 18:36 | Surgery Progress Note ---
Surgery Progress Note Subjective Additional Comments improved no n/v/f/c comfortable labs noted exam stable Objective Last 24 Hour Vital Signs Date Time Temp Pulse Resp B/P (MAP) Pulse Ox O2 Delivery O2 Flow Rate FiO2 02/14/20 16:00 98.6 78 20 155/88 (110) 96 02/14/20 16:00 65 02/14/20 12:00 61 02/14/20 12:00 96.7 84 22 167/73 (104) 94 02/14/20 09:00 Nasal Cannula 2.0 02/14/20 08:00 97.2 61 21 152/77 (102) 95 02/14/20 08:00 58 02/14/20 06:14 169/70 02/14/20 04:00 72 02/14/20 04:00 97.3 74 20 159/84 (109) 96 02/14/20 00:00 97.5 72 21 148/83 (104) 95 02/14/20 00:00 75 02/13/20 21:50 182/95 02/13/20 21:00 Nasal Cannula 3.0 02/13/20 20:00 97.5 98 21 176/92 (120) 95 02/13/20 20:00 74 I&O Intake and Output 02/13/20 02/14/20 19:00 07:00 Intake Total 75 ml 675 ml Output Total 500 ml Balance 75 ml 175 ml IV Total 75 ml 675 ml Output Urine Total 500 ml # Voids 3 # Bowel Movements 1 Laboratory Tests Test 02/13/20 21:41 02/14/20 05:35 02/14/20 05:57 02/14/20 16:42 POC Whole Blood Glucose 197 MG/DL (74-106) H 147 MG/DL (74-106) H 232 MG/DL (74-106) H White Blood Count 6.5 K/UL (4.8-10.8) Red Blood Count 5.41 M/UL (4.20-5.40) H Hemoglobin 15.7 G/DL (12.0-16.0) Hematocrit 45.9 % (37.0-47.0) Mean Corpuscular Volume 85 FL (80-99) Mean Corpuscular Hemoglobin 29.0 PG (27.0-31.0) Mean Corpuscular Hemoglobin Concent 34.2 G/DL (32.0-36.0) Red Cell Distribution Width 13.7 % (11.6-14.8) Platelet Count 195 K/UL (150-450) Mean Platelet Volume 9.0 FL (6.5-10.1) Neutrophils (%) (Auto) 71.4 % (45.0-75.0) Lymphocytes (%) (Auto) 20.0 % (20.0-45.0) Monocytes (%) (Auto) 7.7 % (1.0-10.0) Eosinophils (%) (Auto) 0.1 % (0.0-3.0) Basophils (%) (Auto) 0.8 % (0.0-2.0) Sodium Level 140 MMOL/L (136-145) Potassium Level 4.0 MMOL/L (3.5-5.1) Chloride Level 104 MMOL/L (98-107) Carbon Dioxide Level 31 MMOL/L (21-32) Anion Gap 5 mmol/L (5-15) Blood Urea Nitrogen 17 mg/dL (7-18) Creatinine 0.9 MG/DL (0.55-1.30) Estimat Glomerular Filtration Rate 59.2 mL/min (>60) Glucose Level 156 MG/DL (74-106) H Calcium Level 8.5 MG/DL (8.5-10.1) Plan Problems: (1) Respiratory distress Assessment & Plan: Left pleural effusion and mild interstitial congestion are unchanged. Right perihilar atelectasis is unchanged. respiratory care as per pulm cont O2 improved d/c planning (2) Sacral decubitus ulcer Assessment & Plan: Patient identified admission to have a sacral cubitus ulcer. 3 cm x 2 cm x 2 mm deep stage III/stage II sacral decubitus ulcer identified on the left. No active drainage no signs of active infection no tunneling noted. Wound otherwise clean. Likely from shear forces. Wash wound daily with normal saline apply Thera honey gauze followed by Optifoam dressing. Turn every 2 hours. Offload pressure with pillows. Heel protectors. Nutritional optimization. Will follow with recommendations. Thank you for letting barber rticipate patient's care Pt admitted with sacral Pressure Injury that is now resolving. Reabsorbed purple /black borders, with partial opening L gluteal cheek within base of Pressure injury. Edges are adherent to base of wound. No odor or exudate noted. No evidence of additional skin breakdown periwound. Pt did not exhibit any signs of pain or discomfort when base of wound minimally palpated. Both heels are boggy;non-blanchable erythema both heels.No evidence of pain or distress exhibited when each heel individually palpated. Tx.Plan:Apply Moisture Barrier Paste to Sacrum. Cover with Optifoam drsg. Change every 3 days and prn. Apply Cavilon SKin Barrier to Both heels. Cover each heel with Optifoam drsg. Change every 7 days and prn. Reposition at Least every 2hours or as tolerated. Off-load heels with Pillow. DAILY ESTIMATED NEEDS: Needs based on wound/ 67kg 25-30 kcals/kg total kcals 1.25-1.5 g protein/kg 83-100 g total protein 25-30 mL/kg total fluid mLs NUTRITION DIAGNOSIS: Increased kcal/prot needs R/T wound healing as evidenced by pt admitted w/ open lt buttock wound per photo, pending evaluation, currently refusing meals, pt is COVID-19 positive. CURRENT DIET:LOW NA PO DIET RECOMMENDATIONS: Liberalized regular diet w/ poor PO ADDITIONAL RECOMMENDATIONS: * Glucerna TID w/ meals * CLAIM TAKER eval for appropriate texture * Monitor BGs, need for NISS w/ Decadron (BGs 200's) * A1C for eval of glycemic control (BGs 200's) * Consider adjusting IVF: Na and BUn trend up * Wound healing: add MVI x 1, Vit C 250mg QD, ZnSO4 220mg x 10 days Jose BID as tolerated (3) COVID-19 Assessment & Plan: DAILY ESTIMATED NEEDS: Needs based on wound/ 67kg 25-30 kcals/kg total kcals 1.25-1.5 g protein/kg 83-100 g total protein 25-30 mL/kg total fluid mLs NUTRITION DIAGNOSIS: Increased kcal/prot needs R/T wound healing as evidenced by pt admitted w/ stage 2-3 sacral wound, currently refusing most meals, pt is COVID-19 positive. CURRENT DIET:LOW NA PO DIET RECOMMENDATIONS: Liberalized regular diet w/ poor PO(Texture per CLAIM TAKER) + Glucerna TID w/ meals ADDITIONAL RECOMMENDATIONS: * Add Glucerna TID w/ meals * CLAIM TAKER eval for appropriate texture * Monitor BGs, need for NISS w/ Decadron (BGs 300's)-> NISS NOW ADDED * A1C for eval of glycemic control (BGs 200-300's) * Wound healing: continue MVI + VIT C+ [id number]/ Jose BID as tolerated * Consider appetite stimulant- refusing most meals -> monitor need for nonoral feeds w/ cont poor PO Emilio Rehman Feb 14, 2020 18:36
[2020-02-14 20:00] VITALS: BP 155/82
--- NOTE | 2020-02-14 20:06 | CDS Physician Query ---
Clarification is required for compliance, coding accuracy, and to reflect severity of illness for this patient Dear Dr. Chan Date: 02/14/20 Flame Channeler/CDS Name: Prince Leger Clarification is needed for one (or more) of the following conditions in order to accurately assign the "present on admission' indicator. Please choose the answer that best indicates whether the associated condition was present at the time of the order for inpatient admission. Thank you. DIAGNOSIS: SEPSIS Covid-19 infection, PNA, Sepsis, fevers, hypoxia s/p zosyn (Infectious Disease Progress Note, 02/14/20) COVID-19 infection, Acute hypoxemic respiratory failure likely 2/ COVID pneumonia vs bacterial pneumonia, Metabolic alkalosis, Elevated inflammatory markers - D-dimer, ferritin, CRP (IM Progress Notes, 02/14/20) Vitals: T 101.9, 96.5 HR 84,90 RR 25, 25 Labs: WBC 7.7, 8.3 CRP 17.8 Ferritin 1084 D-dimer 10.97 Medications: IV Zosyn 3.375gm Was the SEPSIS Present on admission? [X] YES [ ] NO [ ] Clinically Undeterminable Physician signature Date Please also document in your Progress Notes and/or Discharge Summary and indicate if the condition was present on admission. MTDD
[2020-02-15] VITALS: BP 133/60
[2020-02-15 04:00] VITALS: BP 153/62
[2020-02-15] MEDS: NovoLOG Insulin Flexpen SUBQ SCH ×4 (06:24→21:30)
[2020-02-15 08:00] VITALS: BP 137/58
[2020-02-15] MEDS: Ascorbic Acid 500mg tab ORAL SCH (08:42)
[2020-02-15] MEDS: Heparin 5000 units/ml inj SUBQ SCH ×2 (08:43→21:22)
[2020-02-15] MEDS: Zinc Sulfate 220mg ORAL SCH (08:44)
--- NOTE | 2020-02-15 10:01 | Nephrology Progress Note ---
Assessment/Plan Plan #Hypoxemic resp failure, #metabolic alkalosis #COVID infection #possible pneumonia #hypernatremia - switch to 1/2 NS - antibiotics per ID - on lovenox - consider remdesevir - appreciate pulm recs - avoid nephrotoxins - monitor lytes time spent 35 min Subjective ROS Limited/Unobtainable: No Constitutional: Reports: weakness HEENT: Denies: no symptoms, eye pain, blurred vision, tearing, double vision, ear pain, ear discharge, nose pain, nose congestion, throat pain, throat swelling, mouth pain, mouth swelling, other Genitourinary: Denies: no symptoms, burning, discharge, frequency, flank pain, hematuria, incontinence, pain, urgency, other Neurologic/Psychiatric: Denies: no symptoms, anxiety, depressed, emotional problems, headache, numbness, paresthesia, pre-existing deficit, seizure, tingling, tremors, weakness, other Objective Objective Last 24 Hour Vital Signs Date Time Temp Pulse Resp B/P (MAP) Pulse Ox O2 Delivery O2 Flow Rate FiO2 02/15/20 09:00 Nasal Cannula 2.0 02/15/20 08:00 67 02/15/20 04:00 58 02/15/20 04:00 97.9 71 24 153/62 (92) 94 02/15/20 00:00 68 02/15/20 00:00 97.7 70 22 133/60 (84) 94 02/14/20 21:00 Nasal Cannula 2.0 02/14/20 20:00 66 02/14/20 20:00 98.8 98 20 155/82 (106) 97 02/14/20 16:00 98.6 78 20 155/88 (110) 96 02/14/20 16:00 65 02/14/20 12:00 61 02/14/20 12:00 96.7 84 22 167/73 (104) 94 Intake and Output 02/14/20 02/15/20 19:00 07:00 Intake Total 647.5 ml 870 ml Output Total 550 ml Balance 647.5 ml 320 ml Intake Oral 480 ml 120 ml IV Total 167.5 ml 750 ml Output Urine Total 550 ml # Bowel Movements 2 Laboratory Tests 02/14/20 16:42: POC Whole Blood Glucose 232H 02/14/20 20:44: POC Whole Blood Glucose 188H 02/15/20 06:10: POC Whole Blood Glucose 138H Height (Feet): 5 Height (Inches): 5.00 Weight (Pounds): 149 Annika Cramer M.D. Feb 15, 2020 10:01
[2020-02-15] MEDS ORDERED: NAMENDA5 MG ORAL (11:15)
[2020-02-15] MEDS ORDERED: ZINC SULFATE220 M2 ORAL (11:15)
[2020-02-15] MEDS ORDERED: LEVOTHYROXINE75 MCG ORAL (11:15)
[2020-02-15] MEDS ORDERED: ACETAMINOPHEN325 M1 ORAL (11:15)
[2020-02-15] MEDS ORDERED: ASCORBIC ACID500 M4 ORAL (11:15)
[2020-02-15] MEDS ORDERED: MULTIVITAMINS1 EAC2 ORAL (11:15)
[2020-02-15] MEDS ORDERED: ATORVASTATIN CA80 MG ORAL (11:15)
[2020-02-15] MEDS ORDERED: METOPROLOL SUCC25 MG ORAL (11:15)
[2020-02-15] MEDS ORDERED: PANTOPRAZOLE SO40 MG ORAL (11:15)
--- NOTE | 2020-02-15 11:17 | General Progress Note ---
Subjective Date patient seen: Feb 15, 2020 ROS Limited/Unobtainable: Yes Allergies: Coded Allergies: No Known Allergies (Unverified , 02/07/20) Subjective On 1-2L NC, confused, no distress Objective Last 24 Hour Vital Signs Date Time Temp Pulse Resp B/P (MAP) Pulse Ox O2 Delivery O2 Flow Rate FiO2 02/15/20 09:00 Nasal Cannula 2.0 02/15/20 08:00 96.7 56 20 137/58 (84) 100 02/15/20 08:00 67 02/15/20 04:00 58 02/15/20 04:00 97.9 71 24 153/62 (92) 94 02/15/20 00:00 68 02/15/20 00:00 97.7 70 22 133/60 (84) 94 02/14/20 21:00 Nasal Cannula 2.0 02/14/20 20:00 66 02/14/20 20:00 98.8 98 20 155/82 (106) 97 02/14/20 16:00 98.6 78 20 155/88 (110) 96 02/14/20 16:00 65 02/14/20 12:00 61 02/14/20 12:00 96.7 84 22 167/73 (104) 94 Intake and Output 02/14/20 02/15/20 19:00 07:00 Intake Total 647.5 ml 870 ml Output Total 550 ml Balance 647.5 ml 320 ml Intake Oral 480 ml 120 ml IV Total 167.5 ml 750 ml Output Urine Total 550 ml # Bowel Movements 2 Laboratory Tests 02/14/20 16:42: POC Whole Blood Glucose 232H 02/14/20 20:44: POC Whole Blood Glucose 188H 02/15/20 06:10: POC Whole Blood Glucose 138H Height (Feet): 5 Height (Inches): 5.00 Weight (Pounds): 149 Objective General Appearance: WD/WN, no apparent distress, alert, laying in bed with nasal cannula HEENT: normocephalic, atraumatic, anicteric, mucous membranes moist, supple Neck: non-tender, normal alignment, normal inspection Respiratory/Chest: chest wall non-tender, normal breath sounds, no respiratory distress, no accessory muscle use Cardiovascular/Chest: normal rate, regular rhythm Abdomen: non tender, soft, no mass Extremities: normal range of motion, non-tender, no edema, arms in soft rest raints Skin Exam: normal pigmentation, warm/dry 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 CXR showing pleural effusion. Likely 2/2 COVID pneumonia vs bacterial pneumonia #Metabolic alkalosis #Elevated inflammatory markers - D-dimer, ferritin, CRP #Hypothyroidism #Hypoalbuminemia P: - stable on 2 L NC oxygen, Wean as tolerated. Goal O2 sat>94%, Patient desaturated to 87% on RA- needs home oxtgen - cardiac monitoring - s/p IV abx Zosyn per ID- finished 7 days of abx - vancomycin discontinued per ID - dexamethasone, remdesivir - resume levothyroxine - ID consult, rene Newsome appreciated - Pulm consult, rene Gonsalez appreciated - Nephro consult, rene Mccullough appreciated Code: Full GI: Protonix DVT prophylaxis: Heparin 5000 units twice daily Dispo: Pending improving in hypoxic respiratory failure and lower oxygen r equirements before sending back to SNF after Time spent on this encounter was 37 minutes which included 22 minutes of counseling and care coordination. I discussed with the nurse at bedside. Time of note may not reflect time patient was seen. Abdiel Delgado M.D. Feb 15, 2020 11:17
--- NOTE | 2020-02-15 11:17 | Discharge Summary ---
Discharge Summary Hospital Course Date of Admission Feb 07, 2020 at 14:45 Date of Discharge February 15, 2020 Admitting Diagnosis sob/covid+ HPI Zoya Montenegro is a 89 year old female who was admitted on Feb 07, 2020 at 14:45 for Shortness Of Breath, Covid. 89-year-old female with no significant PMH/PSH presents from SNF for worsening SOB. Recently tested positive for COVID-19. She reports mild difficulty breathing but denies chest pain, fever, chills, N/V/D, abdominal pain. In ED, she was hypoxic and improved after being placed on non-rebreather oxygen mask at 15 L Consultations ID, nephrology, pulmonology Hospital Course Patient was admitted for acute hypoxic respiratory failure due to covid 19 pneumonia and placed on oxygen. She received antibiotics, dexamethasone and remdesivir. She eventually weaned down to low flow oxygen 1-2 Ls via NC. Family did not want to send patient back to SNF and decided to take the patient home. Patient was discharged home with oxygen. 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 I discussed with the nurse at bedside. Time of note may not reflect time patient was seen. Discharge Medications New Medications: Ascorbic Acid* (Ascorbic Acid*) 500 Mg Tablet 250 MG ORAL DAILY for 30 Days, #30 TAB Multivitamins* (Multivitamins*) 1 Each Tablet 1 TAB ORAL DAILY for 30 Days, #30 TAB Pantoprazole* (Pantoprazole*) 40 Mg Tablet.dr 40 MG ORAL DAILY for 10 Days, #10 TAB Zinc Sulfate (Zinc Sulfate) 220 Mg Tablet 220 MG ORAL DAILY for 30 Days, #30 TAB Continued Medications: Acetaminophen* (Acetaminophen 325MG Tablet*) 325 Mg Tablet 325 MG ORAL Q4H PRN for for 30 Days, #50 TAB (This prescription has been renewed) Atorvastatin Calcium* (Lipitor*) 80 Mg Tablet 80 MG ORAL BEDTIME for Dyslipidemia for 30 Days, #30 TAB (This prescription has been renewed) Levothyroxine Sodium* (Synthorid*) 75 Mcg Tablet 50 MCG ORAL DAILY for Thyroid for 30 Days, #30 TAB (This prescription has been renewed) Take in the morning on an empty stomach, at least 30 minutes before food. Memantine Hcl* (Namenda*) 5 Mg Tablet 5 MG ORAL TWICE A DAY for for 30 Days, #30 TAB (This prescription has been renewed) Metoprolol Succinate* (Metoprolol Succinate*) 25 Mg Tab.er.24h 25 MG ORAL DAILY for for 30 Days, #30 TAB (This prescription has been renewed) Discontinued Medications: Ceftriaxone Sodium (Ceftriaxone) 1 Gm Vial.port 1 GM IV for , VIAL Clonidine Hcl* (Catapres*) 0.1 Mg Tablet 0.1 MG ORAL EVERY 8 HOURS for , TAB Discharge Condition Upon Discharge: stable Discharge Vital Signs Last Vital Signs Date Time Temp Pulse Resp B/P (MAP) Pulse Ox O2 Delivery O2 Flow Rate FiO2 02/15/20 09:00 Nasal Cannula 2.0 02/15/20 08:00 96.7 56 20 137/58 (84) 100 Discharge Disposition Patient was discharged to home Discharge Diagnoses: (1) Acute respiratory failure with hypoxia (2) COVID-19 (3) Sacral decubitus ulcer (4) Respiratory distress Abdiel Delgado M.D. Feb 15, 2020 11:17
[2020-02-15 12:00] VITALS: BP 135/71
--- NOTE | 2020-02-15 12:38 | Surgery Progress Note ---
Surgery Progress Note Subjective Symptoms: improved, tolerating diet, passing flatus, BM Objective Last 24 Hour Vital Signs Date Time Temp Pulse Resp B/P (MAP) Pulse Ox O2 Delivery O2 Flow Rate FiO2 02/15/20 09:00 Nasal Cannula 2.0 02/15/20 08:00 96.7 56 20 137/58 (84) 100 02/15/20 08:00 67 02/15/20 04:00 58 02/15/20 04:00 97.9 71 24 153/62 (92) 94 02/15/20 00:00 68 02/15/20 00:00 97.7 70 22 133/60 (84) 94 02/14/20 21:00 Nasal Cannula 2.0 02/14/20 20:00 66 02/14/20 20:00 98.8 98 20 155/82 (106) 97 02/14/20 16:00 98.6 78 20 155/88 (110) 96 02/14/20 16:00 65 I&O Intake and Output 02/14/20 02/15/20 19:00 07:00 Intake Total 647.5 ml 870 ml Output Total 550 ml Balance 647.5 ml 320 ml Intake Oral 480 ml 120 ml IV Total 167.5 ml 750 ml Output Urine Total 550 ml # Bowel Movements 2 Dressing: dry Wound: clean, dry Cardiovascular: RSR Respiratory: clear, decreased breath sounds Abdomen: soft, non-tender, present bowel sounds Extremities: no edema, no tenderness, no cyanosis Laboratory Tests Test 02/14/20 16:42 02/14/20 20:44 02/15/20 06:10 POC Whole Blood Glucose 232 MG/DL (74-106) H 188 MG/DL (74-106) H 138 MG/DL (74-106) H Plan Problems: (1) Respiratory distress Assessment & Plan: Left pleural effusion and mild interstitial congestion are unchanged. Right perihilar atelectasis is unchanged. respiratory care as per pulm cont O2 improved d/c planning (2) Sacral decubitus ulcer Assessment & Plan: Patient identified admission to have a sacral cubitus ulcer. 3 cm x 2 cm x 2 mm deep stage III/stage II sacral decubitus ulcer identified on the left. No active drainage no signs of active infection no tunneling noted. Wound otherwise clean. Likely from shear forces. Wash wound daily with normal saline apply Thera honey gauze followed by Optifoam dressing. Turn every 2 hours. Offload pressure with pillows. Heel protectors. Nutritional optimization. Will follow with recommendations. Thank you for letting participate patient's care Pt admitted with sacral Pressure Injury that is now resolving. Reabsorbed purple /black borders, with partial opening L gluteal cheek within base of Pressure injury. Edges are adherent to base of wound. No odor or exudate noted. No evidence of additional skin breakdown periwound. Pt did not exhibit any signs of pain or discomfort when base of wound minimally palpated. Both heels are boggy;non-blanchable erythema both heels.No evidence of pain or distress exhibited when each heel individually palpated. Tx.Plan:Apply Moisture Barrier Paste to Sacrum. Cover with Optifoam drsg. Change every 3 days and prn. Apply Cavilon SKin Barrier to Both heels. Cover each heel with Optifoam drsg. Change every 7 days and prn. Reposition at Least every 2hours or as tolerated. Off-load heels with Pillow. DAILY ESTIMATED NEEDS: Needs based on wound/ 67kg 25-30 kcals/kg total kcals 1.25-1.5 g protein/kg 83-100 g total protein 25-30 mL/kg total fluid mLs NUTRITION DIAGNOSIS: Increased kcal/prot needs R/T wound healing as evidenced by pt admitted w/ open lt buttock wound per photo, pending evaluation, currently refusing meals, pt is COVID-19 positive. CURRENT DIET:LOW NA PO DIET RECOMMENDATIONS: Liberalized regular diet w/ poor PO ADDITIONAL RECOMMENDATIONS: * Glucerna TID w/ meals * ASSISTANT STORE LEADER eval for appropriate texture * Monitor BGs, need for NISS w/ Decadron (BGs 200's) * A1C for eval of glycemic control (BGs 200's) * Consider adjusting IVF: Na and BUn trend up * Wound healing: add MVI x 1, Vit C 250mg QD, ZnSO4 220mg x 10 days Jose BID as tolerated (3) COVID-19 Assessment & Plan: DAILY ESTIMATED NEEDS: Needs based on wound/ 67kg 25-30 kcals/kg total kcals 1.25-1.5 g protein/kg 83-100 g total protein 25-30 mL/kg total fluid mLs NUTRITION DIAGNOSIS: Increased kcal/prot needs R/T wound healing as evidenced by pt admitted w/ stage 2-3 sacral wound, currently refusing most meals, pt is COVID-19 positive. CURRENT DIET:LOW NA PO DIET RECOMMENDATIONS: Liberalized regular diet w/ poor PO(Texture per ASSISTANT STORE LEADER) + Glucerna TID w/ meals ADDITIONAL RECOMMENDATIONS: * Add Glucerna TID w/ meals * ASSISTANT STORE LEADER eval for appropriate texture * Monitor BGs, need for NISS w/ Decadron (BGs 300's)-> NISS NOW ADDED * A1C for eval of glycemic control (BGs 200-300's) * Wound healing: continue MVI + VIT C+ [id number]/ Jose BID as tolerated * Consider appetite stimulant- refusing most meals -> monitor need for nonoral feeds w/ cont poor PO Additional Comments d/c plan cont care plan as above on d/c Emilio Rehman Feb 15, 2020 12:38
--- NOTE | 2020-02-15 14:39 | Pulmonology Progress Note ---
Subjective ROS Limited/Unobtainable: Yes Interval Events: BP elevated overnight Constitutional: Reports: fatigue; Denies: fever HEENT: Repors: no symptoms Respiratory: Reports: no symptoms Cardiovascular: Reports: no symptoms Gastrointestinal/Abdominal: Denies: nausea, vomiting, diarrhea Psychiatric: Denies: depression Skin: Denies: rash Musculoskeletal: Denies: pain Allergies: Coded Allergies: No Known Allergies (Unverified , 02/07/20) Objective Last 24 Hour Vital Signs Date Time Temp Pulse Resp B/P (MAP) Pulse Ox O2 Delivery O2 Flow Rate FiO2 02/15/20 12:00 96.8 65 21 135/71 (92) 100 02/15/20 12:00 75 02/15/20 09:00 Nasal Cannula 2.0 02/15/20 08:00 96.7 56 20 137/58 (84) 100 02/15/20 08:00 67 02/15/20 04:00 58 02/15/20 04:00 97.9 71 24 153/62 (92) 94 02/15/20 00:00 68 02/15/20 00:00 97.7 70 22 133/60 (84) 94 02/14/20 21:00 Nasal Cannula 2.0 02/14/20 20:00 66 02/14/20 20:00 98.8 98 20 155/82 (106) 97 02/14/20 16:00 98.6 78 20 155/88 (110) 96 02/14/20 16:00 65 Intake and Output 02/14/20 02/15/20 19:00 07:00 Intake Total 647.5 ml 870 ml Output Total 550 ml Balance 647.5 ml 320 ml Intake Oral 480 ml 120 ml IV Total 167.5 ml 750 ml Output Urine Total 550 ml # Bowel Movements 2 Objective pt appears lethargic in bed General Appearance: no acute distress HEENT: normocephalic, no JVD Respiratory: decreased breath sounds Cardiovascular: normal peripheral pulses Abdomen: normal bowel sounds, soft, non tender Extremities: other - trace b/l LE edema Laboratory Tests 02/14/20 16:42: POC Whole Blood Glucose 232H 02/14/20 20:44: POC Whole Blood Glucose 188H 02/15/20 06:10: POC Whole Blood Glucose 138H Current Medications Medications (Trade) Dose Ordered Sig/Tawanda Route PRN Reason Start Time Stop Time Status Last Admin Dose Admin Acetaminophen (Tylenol) 650 mg Q4H PRN ORAL Temp >100.5 02/07/20 19:09 03/08/20 19:08 Ascorbic Acid (Vitamin C) 250 mg DAILY ORAL 02/10/20 09:00 03/11/20 08:59 02/15/20 08:42 Dexamethasone Sodium Phosphate (Decadron 4mg/ml vial) 6 mg DAILY IVP 02/11/20 09:00 02/17/20 09:01 02/15/20 08:42 Dextrose (Dextrose 50%) 25 ml Q30M PRN IV Hypoglycemia 02/12/20 09:45 05/12/20 09:44 Dextrose (Dextrose 50%) 50 ml Q30M PRN IV Hypoglycemia 02/12/20 09:45 05/12/20 09:44 Heparin Sodium (Porcine) (Heparin 5000 units/ml) 5,000 units EVERY 12 HOURS SUBQ 02/08/20 09:00 03/24/20 08:59 02/15/20 08:43 Hydralazine HCl (Apresoline) 10 mg Q4H PRN ORAL For High Blood Pressure 02/13/20 21:45 05/13/20 21:44 02/14/20 06:14 Insulin Aspart (NovoLOG) BEFORE MEALS AND HS SUBQ 02/12/20 11:30 05/12/20 11:29 02/14/20 21:03 Magnesium Hydroxide (Mom) 30 ml QHS PRN ORAL Constipation 02/07/20 18:45 03/08/20 18:44 Multivitamins (Multivitamins) 1 tab DAILY ORAL 02/10/20 09:00 03/11/20 08:59 02/15/20 08:42 Pantoprazole (Protonix) 40 mg DAILY ORAL 02/08/20 09:00 03/09/20 08:59 02/15/20 08:42 Sodium Chloride 1,000 ml @ 75 mls/hr [id number] IV 02/08/20 13:30 03/09/20 13:29 02/15/20 05:03 Zinc Sulfate (Zinc Sulfate) 220 mg DAILY ORAL 02/10/20 09:00 02/20/20 08:59 02/15/20 08:44 Assessment/Plan Assessment/Plan 1. COVID-19 pneumonia. - Contnue Decadron - s/p zosyn - s/p remdesivir - clinically less hypoxia 2. Markedly elevated inflammatory markers. - Lovenox added on 02/07/2020 3. alf resident. - Daughter, Kristie, wants her to be discharged to home, with oxygen if necessary - Oxygen weaning trials in process; pt seems to tolerate lower oxygen flow via NC saturating 93% with 1 lpm NC 4. Hypoxia - Slowly weaning oxygen - Now on 1L/min; Saturating at 93% - On RA, saturating at 87% dc planning in process- waiting on home oxygen to be delivered before dc The care for this patient was discussed with my supervising physician Seen and examined by Dr. Cartwright Time spent for this case was approximately 31 minutes Mario Bianchi Feb 15, 2020 14:39
[2020-02-15 16:00] VITALS: BP 130/81
[2020-02-15 20:00] VITALS: BP 140/60
[2020-02-15] MEDS ORDERED: 1/2 NS 1000ml IV ONE (22:54)
[2020-02-15] MEDS ORDERED: Tubing IV Secondary IV ONE (22:54)
== END 2020-02-15 22:55 | disposition home or self-care (01) | DRG 871 ==
LOC: EDBD 12:30 → EMR 14:02 → 2E 14:45 → EDBEDREQ 23:31
DX: A41.89 Other specified sepsis (principal); U07.1 COVID-19; L89.153 Pressure ulcer of sacral region, stage 3; J12.89 Other viral pneumonia; J96.01 Acute respiratory failure with hypoxia; E87.0 Hyperosmolality and hypernatremia; E87.3 Alkalosis; E03.9 Hypothyroidism, unspecified; E88.09 Other disorders of plasma-protein metabolism, not elsewhere classified
CPT/HCPCS: 36415; 71045; 80048; 80053; 81003; 82248; 82728; 82803; 82962; 83605; 83615; 83690; 83735; 83880; 84100; 84484; 85007; 85025; 85379; 85610; 85730; 86140; 87040; 87081; 93005; 96365; 96367; 96375; 99291; J1815; J3490; J7030; J8499